=== PATIENT | male | born 1955 | race Caucasian/White ===

== ENCOUNTER 2020-08-01 19:39 | Emergency (ER) | payer OTHER, SELFPAY ==
[2020-08-01 19:44] VITALS: BP 170/86; PULSE 94; RESP 16; TEMP 36.3; O2SAT 100
--- NOTE | 2020-08-01 20:25 | ED.EXTPRO ---
HPI - Extremity Problem General Chief complaint: Extremity Problem,Nontraumatic Stated complaint: LEG PAIN, HISTORY OF DVT Time Seen by Provider: 08/01/20 20:09 Source: patient Mode of arrival: ambulatory Limitations: no limitations History of Present Illness HPI Narrative: Patient is 65 years old white male presents with pain at the medial side of the distal right thigh started 2 to 3 days ago. Patient denies any trauma or similar symptoms. Patient denies any fever, chills, nausea, vomiting, headache, shortness of breath or chest pain. Patient denies exposure to anybody with COVID-19. History of diabetes, hypertension, hyperlipidemia. Patient does not smoke, does not drink does not use drugs. History of deep vein thrombosis 2006. Currently patient does not take any blood thinner. Related Data Home Medications Medication Instructions Recorded Confirmed fluocinonide 0.05 % topical cream 1 applic TOPICAL BID 11/16/19 lancets 30 gauge #25 each 11/16/19 tadalafil 20 mg tablet 20 mg PO DAILY PRN 11/16/19 Allergies Allergy/AdvReac Type Severity Reaction Status Date / Time No Known Allergies Allergy Verified 08/01/20 19:48 Review of Systems Review of Systems: Narrative: CONSTITUTIONAL: Denies fever, chills, or sweats. EYES: Denies visual changes, redness, or discharge. ENT: Denies rhinorrhea, congestion, sore throat, or otalgia. CARDIOVASCULAR: Denies chest pain, palpitations, or edema. RESPIRATORY: Denies cough or dyspnea. GASTROINTESTINAL: Denies abdominal pain, nausea, vomiting, or diarrhea. GENITOURINARY: Denies dysuria or hematuria. SKIN: Denies rash or itching. MUSCULOSKELETAL: Denies back pain, joint pain, or myalgia. NEUROLOGIC: Denies headache, numbness, or weakness. PSYCHIATRIC: Denies anxiety or depression. [facility] Past Medical History Medical History (Updated 08/01/20 @ 21:29 by Rob Lagunas MD) Chronic pain of left ankle DVT (deep venous thrombosis) 2013 Dyslipidemia Eczema ankle Elevated lipids Erectile dysfunction Essential (primary) hypertension Hypertension Pre-diabetes Type 2 diabetes mellitus without complication, without long-term current use of insulin Surgical History Surgical History History of foot surgery x3 Family History Family History Other Diabetes mellitus Social History Social History Smoking status: Never smoker Second hand tobacco smoke exposure: No Alcohol intake: current Substance use: never Substance use type: does not use Gender identity (if verbalized by the patient): Male Exam Narrative: Exam Narrative: General appearance: Well-developed, well-nourished Skin: Normal color, Head: Normocephalic, nontraumatic Eyes: Clear conjunctiva ENT: Oropharynx normal, ears normal, nose normal Neck: Supple, nontender Chest and respiratory: Airway patent, no respiratory distress, no accessory muscle use Heart: Regular rate/rhythm Abdomen: Soft, nontender, no organomegaly, quiet bowel sounds Vascular: Normal peripheral pulses, normal capillary refill. Musculoskeletal: Normal range of motion, nontender back. Right thigh showed a kuldeep like feeling subcutaneous, 25 cm x 1 cm, distal medial thigh, tender, red, Neurologic: Alert and oriented ?3, TURN SEWER is normal as tested, no gross motor deficit Course Course Emergency Course: Stable Vital Signs Vital signs: Vital Signs Temperature 36.3 C L 08/01/20 19:44 Pulse Rate 94 08/01/20 19:44 Respiratory Rate 16 08/01/20 19:44 Blood Pressure 170/86 H 08/01/20 19:44 Pulse Ox
[2020-08-01 20:38] LABS: Basophils Percent Auto 0.5 % (0.2-1.2); Eosinophils Absolute Auto 0.1 K/mm3 (0-0.3); Eosinophils Percent Auto 2.2 % (0-4.4); Hematocrit 44.8 % (42.0-52.0); Hemoglobin 15.4 g/dL (14.0-18.0); Immature Granulocyte Absolute 0.02 K/mm3 (0.00-0.031); Immature Granulocyte Percent A 0.3 % (0-0.5); Lymphocytes Absolute Auto 1.29 K/mm3 (0.9-3.2); Lymphocytes Percent Auto 20.3 % (18.3-44.2); Mean Corpuscular HGB Conc 34.4 g/dl (32-36); Mean Corpuscular Volume 92.9 fl (80-100); Mean Platelet Volume 9.6 fl (7.4-10.4); Monocytes Absolute Auto 0.7 K/mm3 (0.1-0.6); Monocytes Percent Auto 10.8 % (2.6-8.5); Neutrophils Absolute Auto 4.2 K/mm3 (1.3-6.7); Neutrophils Percent Auto 65.9 % (45.5-73.1); Platelet Count Result 175 k/mm3 (150-375); Red Blood Count 4.82 M/mm3 (4.6-6.20); Red Cell Distribution Width 12.7 % (11.5-14.5); White Blood Count 6.4 K/mm3 (4.5-10.0)
[2020-08-01] MEDS: ASPIRIN 81 MG CHEWABLE TABLET 324 MG PO (20:48)
[2020-08-01 20:49] LABS: INR 1.1; Prothrombin Time 13.4 Seconds (11.1-14.7)
[2020-08-01 20:50] VITALS: BP 152/101; PULSE 79; RESP 12; O2SAT 97
[2020-08-01 20:52] LABS: D Dimer 0.27 ug/mL (<0.48)
[2020-08-01] MEDS: APIXABAN 5 MG TABLET 10 MG PO (20:55)
[2020-08-01 22:00] VITALS: BP 146/91; PULSE 78; RESP 15; O2SAT 96
== END 2020-08-01 22:00 | disposition home or self-care (01) ==
PROVIDERS: Emergency Provider Emergency Medicine; PCP Family Medicine
DX: I80.01 Phlebitis and thrombophlebitis of superficial vessels of right lower extremity (principal); I10 Essential (primary) hypertension; E11.9 Type 2 diabetes mellitus without complications; E78.5 Hyperlipidemia, unspecified
CPT/HCPCS: 36415; 85025; 85380; 85610; 85730; 99283; A9270

== ENCOUNTER 2020-08-02 07:09 | Outpatient (CLI) | payer OTHER, SELFPAY ==
--- NOTE | ~2020-08-02 | US_ITS ---
EXAMINATION: US venous doppler LE RT DATE: 08/02/2020 07:43 INDICATION: Right lower limb pain and swelling TECHNIQUE: Grayscale ultrasound images without and with compression and Doppler ultrasound images of the right lower extremity veins were obtained. COMPARISON: None. FINDINGS: The visualized portions of right common femoral vein, profunda (deep) femoral vein, femoral vein, pop liteal vein, peroneal trunk, posterior tibial veins, peroneal veins, gastrocnemius vein and greater s aphenous vein outflow are patent. There is noncompressible thrombus in the right greater saphenous ve in syndrome from the mid thigh through the knee. The more distal right greater saphenous vein at the proximal calf is patent and compressible. Incidental simple appearing 3.9 x 1.1 x 0.4 cm anechoic loc ulated subcutaneous fluid collection at the proximal right calf with no internal flow or surrounding hyperemia on color Doppler suggesting a small hematoma/seroma. IMPRESSION: 1. Superficial venous thrombosis in the right greater saphenous vein at the mid thigh through the kne e. No deep venous thrombosis in the right lower limb. 2. Likely incidental 3.9 x 1.1 x 0.4 cm simple anechoic subcutaneous fluid collection at the proximal right calf most consistent with hematoma/seroma. Reviewed, dictated and finalized at location A. IMPRESSION: 1. Superficial venous thrombosis in the right greater saphenous vein at the mid thigh through the knee. No deep venous thrombosis in the right lower limb. 2. Likely incidental 3.9 x 1.1 x 0.4 cm simple anechoic subcutaneous fluid ford ection at the proximal right calf most consistent with hematoma/seroma.
== END 2020-08-02 07:10 | disposition home or self-care (01) ==
PROVIDERS: PCP Family Medicine; Visit Provider Family Medicine
DX: M79.89 Other specified soft tissue disorders (principal); I82.811 Embolism and thrombosis of superficial veins of right lower extremity
CPT/HCPCS: 93971

== ENCOUNTER → 2020-11-26 13:28 | Outpatient (CLI) | payer OTHER, SELFPAY ==
--- NOTE | ~2020-11-26 | MR_ITS ---
EXAMINATION: MR knee RT wo con DATE: 11/26/2020 14:15 INDICATION: Right knee pain TECHNIQUE: Magnetic resonance imaging (MRI) of the right knee was performed without intravenous contr ast. Sequences included coronal PD-weighted FSE, coronal PD-weighted FS FSE, sagittal T2-weighted FS E, sagittal PD-weighted FS FSE and axial PD weighted fat saturated FSE. COMPARISON: None. FINDINGS: Medial compartment: There is medial extrusion of the medial meniscal body. Complex tear of the medial meniscal body and p osterior horn. Partial-thickness cartilage loss without degenerative subchondral changes along the me dial tibial plateau and at the anterior weightbearing medial femoral condyle. Focal chondral fissurin g with tiny focus of subarticular increased marrow signal at the posterior weightbearing medial femor al condyle. Lateral compartment: Lateral meniscus is normal. Chondral fissuring without degenerative subchondral changes at the centra l aspect of the lateral tibial plateau and juxtaposed anterior weightbearing lateral femoral condyle. Additional chondral fissuring with tiny central subchondral osteophyte at the posterior weightbearin g lateral femoral condyle. Patellofemoral compartment: Mild partial thickness cartilage loss and partial-thickness chondral fissuring at the inferior aspect of the patellar apical ridge and lateral facet, the former with couple tiny foci of subarticular moses ma. Shallow chondral ulceration at the trochlear groove. Deeper ulceration at the superomedial margin of the medial trochlea. Additional deep ulceration along the inferior margin of the lateral trochlea with subtle cortical irregularity and minimal subarticular edema. Ligaments and tendons: The posterior cruciate ligament is normal. The anteromedial bundle of the anterior cruciate ligament is normal. Prominent thickening and increased signal of the posterolateral bundle without a discrete discontinuity which could be related to either partial tear or mucoid degeneration. The medial collat eral ligament and fibular collateral ligament complex are normal. Mild tendinopathy at the patellar i nsertion of the distal quadriceps and proximal patellar tendons. The visualized medial and lateral de leon mstring tendons as well as the iliotibial band are normal. Fluid: Small right knee joint effusion. No loose osteochondral bodies identified. Small Hatch's cyst. Osseous/other: Bone alignment is normal. No fracture or pathologic marrow replacing process. IMPRESSION: 1. Complex medial meniscal tear. 2. Mild tricompartmental osteoarthritis with moderate grade chondral malacia medial compartment and m oderate and high-grade chondral malacia in the lateral and patellofemoral compartments. 3. Mucoid degeneration versus partial tear of the posterolateral bundle of the anterior cruciate liga ment. The anteromedial bundle appears to remain intact. 4. Small right knee joint effusion and small Hatch's cyst. Reviewed, dictated and finalized at location A. TIVE SPOTTER IMPRESSION: 1. Complex medial meniscal tear. 2. Mild tricompartmental osteoarthritis with moderate grade chondral malacia me dial compartment and moderate and high-grade chondral malacia in the lateral an d patellofemoral compartments. 3. Mucoid degeneration versus partial tear of the posterolateral bundle of the anterior cruciate ligament. The anteromedial bundle appears to remain intact. 4. Small right knee joint effusion and small Hatch's cyst.
== END ==
PROVIDERS: PCP Family Medicine; Visit Provider Orthopaedic Surgery
DX: M25.561 Pain in right knee (principal); S83.231A Complex tear of medial meniscus, current injury, right knee, initial encounter; M17.11 Unilateral primary osteoarthritis, right knee; M94.261 Chondromalacia, right knee; M25.461 Effusion, right knee; M71.21 Synovial cyst of popliteal space [Baker], right knee
CPT/HCPCS: 73721

== ENCOUNTER 2020-12-05 12:49 | Outpatient (CLI) | payer OTHER, SELFPAY ==
--- NOTE | 2020-12-05 12:53 | ECG_ITS ---
Measurements Intervals Woody Rate: 78 P: 58 SC: 161 QRS: -15 QRSD: 101 T: 30 QT: 370 QTc: 423 Interpretive Statements SINUS RHYTHM BASELINE ARTIFACT- II, AVR NORMAL ECG Electronically Signed On 12-05-2020 13:20:35 [employer] by Kenroy Boyer D.O.
[2020-12-05 13:54] LABS: Anion Gap 6 mmol/L (8-16); Blood Urea Nitrogen 18 mg/dL (9-20); Calcium 9.6 mg/dL (8.4-10.2); Carbon Dioxide 30 mmol/L (22-30); Chloride 104 mmol/L (98-107); Estimated Glomerular Filt Rate > 60; Glucose 76 mg/dL (75-110); Sodium 140 mmol/L (137-145)
== END 2020-12-05 12:50 | disposition home or self-care (01) ==
PROVIDERS: Anesthesiology; PCP Family Medicine; Visit Provider Orthopaedic Surgery
DX: E11.9 Type 2 diabetes mellitus without complications (principal); E78.5 Hyperlipidemia, unspecified; I10 Essential (primary) hypertension; Z01.818 Encounter for other preprocedural examination
CPT/HCPCS: 36415; 80048; 93005

== ENCOUNTER → 2020-12-08 01:28 | Outpatient (CLI) | payer OTHER, SELFPAY ==
[2020-12-08 19:42] LABS: SARS-CoV-2 RNA PCR Negative
== END ==
PROVIDERS: PCP Family Medicine; Visit Provider Orthopaedic Surgery
DX: Z01.812 Encounter for preprocedural laboratory examination (principal); Z20.822 Contact with and (suspected) exposure to COVID-19
CPT/HCPCS: C9803; U0003; U0005

== ENCOUNTER 2020-12-11 01:55 | Day surgery (SDC) | payer OTHER, SELFPAY ==
[2020-12-04 10:23] VITALS: BMI 28.9
[2020-12-11] VITALS (9 sets, daily range): BP systolic 118–153; BP diastolic 70–91; PULSE 84–95; RESP 13–18; TEMP 36.6–37.1; O2SAT 92–95
--- NOTE | 2020-12-11 07:54 | WPDANESEPPF ---
Anes - Initial Pre Proc Eval Procedure: Operation Date: 12/11/20 13:30 Proposed Procedures p Right Knee Arthroscopy, Proceed As Indicated - Sonny Ibrahim MD Date/Time: 12/11/20 07:54 Surgeon: Sonny Ibrahim MD Pre Op Diagnosis: Right Knee Complex Medial Meniscus Tear Patient Data Age: 65 Gender: M Height: 1.88 m Weight: 102.3 kg Allergies Allergy/AdvReac Type Severity Reaction Status Date / Time No Known Allergies Allergy Verified 12/11/20 11:50 Home Medications Medication Instructions Recorded Confirmed Type fluocinonide 0.05 % topical cream 1 applic TOPICAL BID 11/16/19 12/11/20 History lancets 30 gauge #25 each 11/16/19 11/29/20 History blood sugar diagnostic #100 each 02/23/20 11/29/20 Rx fenofibrate 160 mg tablet 160 mg PO DAILY #90 tablet 02/23/20 12/11/20 Rx metformin 500 mg tablet,extended 2,000 mg PO QPM #360 tablet 02/23/20 12/11/20 Rx release 24 hr acetaminophen 650 mg PO BID PRN 11/29/20 12/11/20 History chlorhexidine gluconate 4 % 1 applic TOPICAL ONCE #237 ml 11/29/20 Rx topical liquid cholecalciferol (vitamin D3) 1,000 mg PO DAILY 11/29/20 12/11/20 History multivitamin 1 tablet PO DAILY 11/29/20 12/11/20 History naproxen sodium 220 mg PO BID 11/29/20 12/11/20 History omega-3 fatty acids 1,000 mg 1,000 mg PO DAILY 11/29/20 12/11/20 History capsule saw palmetto 1 tab-cap PO DAILY 11/29/20 12/11/20 History vitamin B complex 1 tablet PO DAILY 11/29/20 12/11/20 History atorvastatin 10 mg PO HS 12/04/20 12/11/20 History glipizide 10 mg PO DAILY 12/04/20 12/11/20 History lisinopril 40 mg PO DAILY 12/04/20 12/11/20 History tramadol 50 mg PO BID PRN 12/04/20 12/11/20 History Patient hx anesthesia problems: none Family hx anesthesia problems: none PMFSH Past Medical History Medical History Chronic pain of left ankle DVT (deep venous thrombosis) 2014 Dyslipidemia Eczema ankle Elevated lipids Erectile dysfunction Essential (primary) hypertension High cholesterol Pre-diabetes Type 2 diabetes mellitus without complication, without long-term current use of insulin Surgical History Surgical History History of foot surgery (~2013) Left x3 2014 Family History Family History Other Arthritis Diabetes mellitus High cholesterol Hypertension Social History Social History Smoking packs per day: 2.5 Smoking cigarettes per day: 50.0 Years smoked: 25 Smoking pack-years: 62.50 Smoking status: Never smoker Tobacco type: cigarettes Second hand tobacco smoke exposure: No Smoking end date: 12/04/02 Alcohol intake: current Substance use: never Substance use type: does not use Living arrangements: with family Gender identity (if verbalized by the patient): Male Spiritual care concerns: No Anes - Eval Final PreProcedure Day of Procedure 12/11/20 07:54 Patient weight: overweight Heart: regular rate and rhythm Lungs: clear to auscultation and normal air movement Airway: Mallampati scale class II Neurological: alert and oriented Last oral intake: >/= 8 hours ASA classification: III Emergent: no Anesthetic plan: proceed Anesthesia type and monitoring: general LMA Informed Consent: The patient's anesthetic plan and its attendant risks and benefits were discussed with the patient/family/POA. Questions were solicited and answers provided to the satisfaction of the patient/family/POA.
--- NOTE | 2020-12-11 11:42 | WPDHPUPDATE1 ---
History and Physical Update Update Date/Time: 12/11/20 11:42 History and Physical has been reviewed, including an updated exam of the patient. There are NO changes in the patient's condition. Risks, benefits, and alternatives have been discussed and questions answered. Patient agrees to proceed with procedure.
[2020-12-11] MEDS: ACETAMINOPHEN 500 MG TABLET 1000 MG PO (11:56)
[2020-12-11] MEDS: CELECOXIB 200 MG CAPSULE PO (11:56)
[2020-12-11] MEDS: LACTATED RINGERS 1,000 ML 30 ML IV CONT ×2 (12:14→14:35)
[2020-12-11] MEDS: ceFAZolin 2 GM/D5W 50 ML 2 GM/50 ML BAG IVPB (13:10)
[2020-12-11] MEDS: BUPIVACAINE HCL 0.5% PF 30 ML VIAL INFILTRATE (14:19)
--- NOTE | 2020-12-11 14:33 | P.OP_ITS ---
Procedure Note - Detailed Date of procedure: 12/11/20 Pre-op diagnosis: Right Knee Complex Medial Meniscus Tear Post-op diagnosis: other (medial meniscus tear, lateral meniscus tear, chondromalacia, synovitis) Procedure performed: RIGHT KNEE SCOPE WITH PARTIAL MEDIAL MENISCECTOMY, PARTIAL LATERAL MENISCECTOMY AND MAJOR SYNOVECTOMY Description of procedure: PATIENT WAS TAKEN TO THE OR. THE RIGHT LEG WAS PREPPED AND DRAPED STERILE. TROCARS WERE PLACED IN THE USUAL FASHION. CAMERA WAS INTRODUCED. THERE WAS CHONDROMALACIA TO THE PATELLA FEMORAL JOINT. THERE WAS A LOT OF SYNOVITIS IN ALL COMPARTMENTS. THE MEDIAL COMPARTMENT SHOWED CHONDRO MALACIA TO THE MED FEMORAL CONDYLE. A SHAVER WAS USED TO PREFORM A CHONDROPLASTY. THERE WAS A COMPLEX MEDIAL MENISCUS TEAR. THE TEAR WAS RESECTED WITH A BITER AND A SHAVER DOWN TO A SMOOTH BASE. ABOUT 25% OF THE MENISCUS WAS REMOVED. THE ACL WAS INTACT. THE LATERAL MENISCUS WAS TORN AT THE MOST LATERAL REGION OF THE HORN. THE TEAR WAS RESECTED. THE LAT COMPARTMENT HAD GRADE 2 CHONDROMALACIA AT THE LATERAL FEMORAL CONDYLE. CHONDROPLASTY WAS PREFORMED. A SYNOVECTOMY WAS PREFORMED WELL. THE PATELLO FEMORAL JOINT UNDERWENT CHONDROPLASTY. THERE WAS GRADE 3 CHONDROMALACIA IN MOST OF THE TROCHLEA AND PART OF THE PATELLA. SYNOVECTOMY WAS PREFORMED IN THE SUPERIOR MEDIAL COMPARTMENT. THE WOUNDS WERE APPROXIMATED WITH 4.0 NYLON. STERILE DRESSING WAS APPLIED. PATIENT WAS EXTUBATED. Anesthesia: GLMA Surgeon: Sonny Ibrahim MD Estimated blood loss (mL): 5 Complications: No immediate complications Condition: stable Disposition: PACU
[2020-12-11 15:14] LABS: Glucose Point of Care 153 (65-105)
[2020-12-11] MEDS: fentaNYL CITRATE INJ (*CRX) 100 MCG/2 ML VIAL 25 MCG IV PUSH ×4 (15:15→15:24)
[2020-12-11] MEDS: oxyCODONE HCL (*CRX) 5 MG TAB IR PO (16:06)
== END 2020-12-11 16:40 | disposition home or self-care (01) ==
PROVIDERS: PCP Family Medicine; Visit Provider Orthopaedic Surgery
PROC: (CPT 29870; principal; 2020-12-11 13:30)
DX: M23.331 Other meniscus derangements, other medial meniscus, right knee (principal); M23.361 Other meniscus derangements, other lateral meniscus, right knee; M94.261 Chondromalacia, right knee; M65.861 Other synovitis and tenosynovitis, right lower leg; I10 Essential (primary) hypertension; E78.00 Pure hypercholesterolemia, unspecified; E11.9 Type 2 diabetes mellitus without complications; E78.5 Hyperlipidemia, unspecified; Z86.718 Personal history of other venous thrombosis and embolism; Z87.891 Personal history of nicotine dependence; Z79.84 Long term (current) use of oral hypoglycemic drugs
CPT/HCPCS: 29880; 36415; 80048; 82948; 93005; A9270; C9803; J0690; J1100; J2250; J2370; J2405; J2704; J3010; J7120; U0003; U0005

== ENCOUNTER → 2021-04-01 00:38 | Outpatient (CLI) | payer OTHER, SELFPAY | PROVIDERS: PCP Family Medicine; Visit Provider Internal Medicine Gastroenterology | DX: Z01.812 Encounter for preprocedural laboratory examination (principal); Z20.822 Contact with and (suspected) exposure to COVID-19 | CPT/HCPCS: 99199; C9803; U0003; U0005 ==

== ENCOUNTER 2021-04-04 00:39 | Day surgery (SDC) | payer OTHER, SELFPAY ==
[2021-03-19 14:49] VITALS: BMI 28.8
[2021-04-04 06:47] VITALS: BMI 28.2
[2021-04-04] MEDS: LACTATED RINGERS 1,000 ML 150 ML IV CONT (07:01)
[2021-04-04 07:02] VITALS: BP 171/91; PULSE 80; RESP 16; TEMP 36.7; O2SAT 97
[2021-04-04 07:02] LABS: Glucose Point of Care 142 mg/dl (65-105)
--- NOTE | 2021-04-04 07:34 | WPDANESEPPF ---
Anes - Initial Pre Proc Eval Procedure: Operation Date: 04/04/21 08:00 Proposed Procedures p Screening Colonoscopy - Myke Ibarra DO Date/Time: 04/04/21 07:34 Surgeon: Myke Ibarra DO Pre Op Diagnosis: neoplasm screening Patient Data Age: 66 Gender: M Height: 1.88 m Weight: 99.8 kg Last Vital Signs Temp 36.7 C 04/04/21 07:02 Pulse 80 04/04/21 07:02 Resp 16 04/04/21 07:02 BP 171/91 H 04/04/21 07:02 Pulse Ox 97 04/04/21 07:02 Allergies Allergy/AdvReac Type Severity Reaction Status Date / Time No Known Allergies Allergy Verified 04/04/21 06:45 Home Medications Medication Instructions Recorded Confirmed Type fluocinonide 0.05 % topical cream 1 applic TOPICAL BID 11/16/19 04/04/21 History lancets 30 gauge #25 each 11/16/19 04/04/21 History blood sugar diagnostic #100 each 02/23/20 04/04/21 Rx acetaminophen [Tylenol] 650 mg PO BID PRN 11/29/20 04/04/21 History cholecalciferol (vitamin D3) 1,000 mg PO DAILY 11/29/20 04/04/21 History multivitamin 1 tablet PO DAILY 11/29/20 04/04/21 History naproxen sodium [Aleve] 220 mg PO BID 11/29/20 04/04/21 History omega-3 fatty acids 1,000 mg 1,000 mg PO DAILY 11/29/20 04/04/21 History capsule saw palmetto 1 tab-cap PO DAILY 11/29/20 04/04/21 History vitamin B complex 1 tablet PO DAILY 11/29/20 04/04/21 History atorvastatin 10 mg PO HS 12/04/20 04/04/21 History glipizide 10 mg PO DAILY 12/04/20 04/04/21 History lisinopril 40 mg PO DAILY 12/04/20 04/04/21 History metformin 500 mg tablet,extended 2,000 mg PO QPM #360 tablet 01/28/21 04/04/21 Rx release 24 hr tramadol 50 mg tablet 50 mg PO BID PRN #90 tablet 02/06/21 04/04/21 Rx fenofibrate 160 mg tablet 160 mg PO DAILY #90 tablet 03/18/21 04/04/21 Rx Laboratory Tests 04/04/21 06:53 POC Capillary Glucose 142 mg/dl H mg/dl (65-105) Patient hx anesthesia problems: none Family hx anesthesia problems: none PMFSH Past Medical History Medical History Chronic pain of left ankle DVT (deep venous thrombosis) 2014 - LLE Dyslipidemia Eczema ankle Elevated lipids Erectile dysfunction Essential (primary) hypertension High cholesterol History of colon polyps Medial meniscus, posterior horn derangement Pre-diabetes Type 2 diabetes mellitus without complication, without long-term current use of insulin Surgical History Surgical History H/O right knee surgery (~12/2020) History of foot surgery (~2013) Left x3 2014 History of medial meniscus repair of right knee 12/2020 Family History Family History Other Arthritis Diabetes mellitus High cholesterol Hypertension Social History Social History Smoking packs per day: 3 Smoking cigarettes per day: 60.0 Years smoked: 38 Smoking pack-years: 114.00 Smoking status: Former smoker Tobacco type: cigarettes Second hand tobacco smoke exposure: No Smoking end date: 10/12/02 Alcohol intake: current Alcohol use details: rarely Substance use: never Substance use type: does not use Living arrangements: with family Gender identity (if verbalized by the patient): Male Spiritual care concerns: No Anes - Eval Final PreProcedure Day of Procedure 04/04/21 07:34 Patient weight: overweight Heart: regular rate and rhythm Lungs: clear to auscultation Airway: Mallampati scale class II Neurological: alert and oriented Last oral intake: >/= 8 hours ASA classification: III Emergent: no Anesthetic plan: proceed Anesthesia type and monitoring: general GIVS and standard monitoring Informed Consent: The patient's anesthetic plan and its attendant risks and benefits were discussed with the patient/family/POA. Questions were solicited and answers provided to the satisfaction of the patient/fam
--- NOTE | 2021-04-04 07:56 | WPDGICN ---
GI Consult Note Consult date/time: 04/04/21 07:56 HPI: Reason for visit colonoscopy. This very pleasant gentleman seen in consultation request the primary physician. Impression: Screening and surveillance colonoscopy. The patient has a history adenomatous colon polyps. DVT. EGD. HTN. HLD. Eczema. DM. Recommendation: Colonoscopy. History: This very pleasant gentleman is here for screening and surveillance colonoscopy. He has negative GI review of systems. He has a history adenomatous colon polyps. Physical examination: General: very pleasant patient in no acute distress. HEENT: Head was normocephalic sclerae is clear mouth without masses neck was supple. Heart: Rate rhythm regular without S3 or S4. Lungs: CTA. Abdomen: Soft with no guarding or rigidity. Bowel sounds were active. Neurologic: Cranial nerves 2 through 12 intact. No focal defects. No clonus. Musculoskeletal system: Revealed no joint tenderness or swelling no muscle atrophy. Extremities: Reveal no significant edema. Skin: Warm and dry with normal turgor. Mental status: intact. Patient is alert and oriented. Review of Systems Review of Systems: All systems reviewed & are unremarkable except as noted in HPI and below PMFSH Past Medical History Medical History Chronic pain of left ankle DVT (deep venous thrombosis) 2014 - LLE Dyslipidemia Eczema ankle Elevated lipids Erectile dysfunction Essential (primary) hypertension High cholesterol History of colon polyps Medial meniscus, posterior horn derangement Pre-diabetes Type 2 diabetes mellitus without complication, without long-term current use of insulin Surgical History Surgical History H/O right knee surgery (~12/2020) History of foot surgery (~2013) Left x3 2014 History of medial meniscus repair of right knee 12/2020 Family History Family History Other Arthritis Diabetes mellitus High cholesterol Hypertension Social History Social History Smoking packs per day: 3 Smoking cigarettes per day: 60.0 Years smoked: 38 Smoking pack-years: 114.00 Smoking status: Former smoker Tobacco type: cigarettes Second hand tobacco smoke exposure: No Smoking end date: 10/12/02 Alcohol intake: current Alcohol use details: rarely Substance use: never Substance use type: does not use Living arrangements: with family Gender identity (if verbalized by the patient): Male Spiritual care concerns: No Meds Home Medications and Allergies Home Medications Medication Instructions Recorded Confirmed Type fluocinonide 0.05 % topical cream 1 applic TOPICAL BID 11/16/19 04/04/21 History lancets 30 gauge #25 each 11/16/19 04/04/21 History blood sugar diagnostic #100 each 02/23/20 04/04/21 Rx acetaminophen [Tylenol] 650 mg PO BID PRN 11/29/20 04/04/21 History cholecalciferol (vitamin D3) 1,000 mg PO DAILY 11/29/20 04/04/21 History multivitamin 1 tablet PO DAILY 11/29/20 04/04/21 History naproxen sodium [Aleve] 220 mg PO BID 11/29/20 04/04/21 History omega-3 fatty acids 1,000 mg 1,000 mg PO DAILY 11/29/20 04/04/21 History capsule saw palmetto 1 tab-cap PO DAILY 11/29/20 04/04/21 History vitamin B complex 1 tablet PO DAILY 11/29/20 04/04/21 History atorvastatin 10 mg PO HS 12/04/20 04/04/21 History glipizide 10 mg PO DAILY 12/04/20 04/04/21 History lisinopril 40 mg PO DAILY 12/04/20 04/04/21 History metformin 500 mg tablet,extended 2,000 mg PO QPM #360 tablet 01/28/21 04/04/21 Rx release 24 hr tramadol 50 mg tablet 50 mg PO BID PRN #90 tablet 02/06/21 04/04/21 Rx fenofibrate 160 mg tablet 160 mg PO DAILY #90 tablet 03/18/21 04/04/21 Rx Allergies Allergy/AdvReac Type Severity Reaction Status Date / Time
[2021-04-04 08:32] VITALS: BP 122/84; PULSE 70; RESP 17; O2SAT 95
[2021-04-04 08:42] VITALS: BP 129/91; PULSE 69; RESP 16; O2SAT 97
[2021-04-04 08:52] VITALS: BP 142/97; PULSE 68; RESP 15; O2SAT 96
== END 2021-04-04 08:52 | disposition home or self-care (01) ==
PROVIDERS: PCP Family Medicine; Visit Provider Internal Medicine Gastroenterology
PROC: 0DJD8ZZ Inspection of Lower Intestinal Tract, Via Natural or Artificial Opening Endoscopic (ICD-10-PCS; CPT 45378; principal; 2021-04-04 08:00)
DX: Z12.11 Encounter for screening for malignant neoplasm of colon (principal); K57.30 Diverticulosis of large intestine without perforation or abscess without bleeding; K64.8 Other hemorrhoids; Z86.010 Personal history of colon polyps; I10 Essential (primary) hypertension; E78.5 Hyperlipidemia, unspecified; E11.9 Type 2 diabetes mellitus without complications; L30.9 Dermatitis, unspecified; Z86.718 Personal history of other venous thrombosis and embolism; Z87.891 Personal history of nicotine dependence; Z79.84 Long term (current) use of oral hypoglycemic drugs
CPT/HCPCS: 45378; 82948; J7120

== ENCOUNTER 2022-08-13 14:28 | Outpatient (CLI) | payer BC, SELFPAY ==
[2022-08-13 19:38] LABS: Alanine Aminotransferase 30 U/L (6-50); Albumin Level 4.8 g/dL (3.5-5.1); Alkaline Phosphatase 34 U/L (38-126); Anion Gap 14 mmol/L (8-16); Aspartate Amino Transferase 27 U/L (17-59); Bilirubin,Total 0.7 mg/dL (0.2-1.3); Blood Urea Nitrogen 17 mg/dL (9-20); Calcium 9.4 mg/dL (8.4-10.2); Carbon Dioxide 25 mmol/L (22-30); Chloride 98 mmol/L (98-107); Estimated Glomerular Filt Rate > 60; Glucose 105 mg/dL (65-110); Potassium 3.6 mmol/L (3.4-5.0); Sodium 137 mmol/L (137-145)
[2022-08-13 19:59] LABS: Hemoglobin A1C 6.9 % (<5.7)
== END 2022-08-13 14:29 | disposition home or self-care (01) ==
LOC: ANHGOSHLAB 14:32
PROVIDERS: PCP Family Medicine; Visit Provider Family Medicine
DX: I10 Essential (primary) hypertension (principal); E11.9 Type 2 diabetes mellitus without complications; Z79.899 Other long term (current) drug therapy
CPT/HCPCS: 36415; 80053; 83036

== ENCOUNTER 2022-12-13 12:36 | Outpatient (CLI) | payer BC, SELFPAY ==
--- NOTE | ~2022-12-13 | MR_ITS ---
EXAMINATION: MR shoulder RT wo con DATE: 12/13/2022 13:27 INDICATION: Right shoulder pain. Right arm numbness and tingling. TECHNIQUE: Magnetic resonance imaging (MRI) of the right shoulder was performed without intravenous c ontrast. Sequences included axial PD-weighted FS FSE, coronal oblique PD-weighted FS FSE and T2-weigh rizwan FS FSE, and sagittal oblique T2-weighted FS FSE and T1-weighted FSE. COMPARISON: None. FINDINGS: Coracoacromial arch: The acromion undersurface is curved in morphology (type II). There is severe acromioclavicular joint osteoarthritis including inferiorly directed osteophytes. There is mild subacromial/subdeltoid bursit is. Rotator cuff: There is severe supraspinatus and infraspinatus tendinopathy. Teres minor tendon is normal. There is an articular sided partial tear of subscapularis tendon. There is volume loss and moderate fatty atro phy of the middle and superior thirds of subscapularis muscle belly. Biceps tendon and glenoid labrum: Biceps tendon is medially dislocated from the bicipital groove into the anterior glenohumeral joint. There is severe biceps tendinopathy with longitudinal split tear. There is degenerative tearing of th e glenoid labrum. Fluid: There is a small glenohumeral joint effusion. Bones/cartilage: There is cartilage surface irregularity of glenoid and humeral head. IMPRESSION: 1. Severe rotator cuff tendinopathy with articular sided partial-thickness tear of subscapularis tend on. 2. Partial tear of biceps tendon, which is medially dislocated from the bicipital groove into the ant erior glenohumeral joint. 3. Mild glenohumeral joint chondrosis. 4. Small glenohumeral joint effusion. 5. Severe acromioclavicular joint osteoarthritis. 6. Mild subacromial/subdeltoid bursitis. Reviewed, dictated and finalized at location A. GRAPHER IMPRESSION: 1. Severe rotator cuff tendinopathy with articular sided partial-thickness tear of subscapularis tendon. 2. Partial tear of biceps tendon, which is medially dislocated from the bicipit al groove into the anterior glenohumeral joint. 3. Mild glenohumeral joint chondrosis. 4. Small glenohumeral joint effusion. 5. Severe acromioclavicular joint osteoarthritis. 6. Mild subacromial/subdeltoid bursitis.
== END 2022-12-13 12:37 | disposition home or self-care (01) ==
PROVIDERS: PCP Family Medicine; Visit Provider Nurse Practitioner
DX: R20.0 Anesthesia of skin (principal); R20.2 Paresthesia of skin; M19.011 Primary osteoarthritis, right shoulder; M25.411 Effusion, right shoulder; M75.51 Bursitis of right shoulder; S46.211A Strain of muscle, fascia and tendon of other parts of biceps, right arm, initial encounter; X58.XXXA Exposure to other specified factors, initial encounter
CPT/HCPCS: 73221

== ENCOUNTER 2023-01-28 06:34 | Outpatient (CLI) | payer BC, SELFPAY ==
--- NOTE | ~2023-01-28 | MR_ITS ---
MRI of the cervical spine Clinical History: Cervical spine arthritis Technique: Axial T2-weighted and gradient images, and sagittal T1-weighted, T2-weighted, and STIR ebony ges were acquired. Findings: No fracture identified. Minimal grade 1 anterolisthesis of C4 over C5 noted. No suspicious bone marrow signal abnormality seen. At C2-C3, there is no disc bulge or herniation. No spinal canal stenosis, cord compression, or neural foraminal narrowing. At C3-C4, there is minimal degenerative disc narrowing. No karen spinal canal stenosis or cord compre ssion. There is left neural foraminal narrowing. Right neural foramen preserved. At C4-C5, there is mild disc osteophyte complex. No karen spinal canal stenosis or definite cord comp ression. There is bilateral neural foraminal narrowing, right worse than left. At C5-C6, there is mild disc osteophyte complex. No definite canal stenosis or cord compression. Ther e is mild bilateral neural foraminal narrowing. At C6-C7, there is degenerative disc narrowing with mild disc bulge. No definite canal stenosis or co rd compression. There is bilateral neural foraminal narrowing. Paravertebral soft tissues are unremarkable. No abnormal signal seen in the spinal cord itself. Impression: [id number] degenerative spondylosis, as above. There is multilevel neural foraminal narrowing. No karen cord compression evident. Reviewed, dictated and finalized at [facility]. Impression: [id number] degenerative spondylosis, as above. There is multilevel neural foraminal narrowing. No karen cord compression evident.
== END 2023-01-28 06:35 | disposition home or self-care (01) ==
PROVIDERS: PCP Family Medicine; Visit Provider Orthopaedic Surgery
DX: M47.812 Spondylosis without myelopathy or radiculopathy, cervical region (principal)
CPT/HCPCS: 72141

== ENCOUNTER 2023-02-11 14:35 | Outpatient (CLI) | payer BC, SELFPAY ==
[2023-02-11 18:44] LABS: Basophils Absolute Auto 0.1 K/mm3 (0.0-0.1); Basophils Percent Auto 1.1 % (0.2-1.2); Eosinophils Absolute Auto 0.4 K/mm3 (0-0.3); Eosinophils Percent Auto 5.9 % (0-4.4); Hematocrit 46.6 % (42.0-52.0); Hemoglobin 15.9 g/dL (14.0-18.0); Immature Granulocyte Absolute 0.03 K/mm3 (0.00-0.031); Immature Granulocyte Percent A 0.4 % (0-0.5); Lymphocytes Absolute Auto 0.87 K/mm3 (0.9-3.2); Lymphocytes Percent Auto 12.2 % (18.3-44.2); Mean Corpuscular HGB Conc 34.1 g/dl (32-36); Mean Corpuscular Hemoglobin 31.6 pg (26-34); Mean Corpuscular Volume 92.6 fl (80-100); Monocytes Absolute Auto 0.5 K/mm3 (0.1-0.6); Monocytes Percent Auto 7.4 % (2.6-8.5); Neutrophils Absolute Auto 5.2 K/mm3 (1.3-6.7); Platelet Count Result 203 k/mm3 (150-375); Red Blood Count 5.03 M/mm3 (4.6-6.20); Red Cell Distribution Width 13.5 % (11.5-14.5); White Blood Count 7.1 K/mm3 (4.5-10.0)
[2023-02-11 20:02] LABS: Alanine Aminotransferase 27 U/L (6-50); Albumin Level 4.9 g/dL (3.5-5.1); Alkaline Phosphatase 33 U/L (38-126); Anion Gap 7 mmol/L (8-16); Aspartate Amino Transferase 34 U/L (17-59); Blood Urea Nitrogen 17 mg/dL (9-20); Calcium 9.6 mg/dL (8.4-10.2); Carbon Dioxide 33 mmol/L (22-30); Chloride 100 mmol/L (98-107); Cholesterol 129 mg/dL (0-200); Estimated Glomerular Filt Rate > 60; Glucose 89 mg/dL (65-110); HDL Direct 44 mg/dL; Sodium 140 mmol/L (137-145); Triglycerides 171 mg/dL (<150)
[2023-02-11 20:11] LABS: Creatinine Urine 75.9 mg/dL
[2023-02-11 20:14] LABS: LDL Cholesterol Direct 62 mg/dL; MALB Creatinine Ratio 11.1 mg/g (0-30); Microalbumin Urine Random 8.4 mg/L (0-16.7)
[2023-02-11 20:25] LABS: Thyroid Stimulating Hormone Reflex 0.434 uIU/mL (0.465-4.68)
[2023-02-11 20:32] LABS: Prostate Specific Antigen 0.3 ng/mL (< OR = 4.0)
[2023-02-11 21:24] LABS: Hemoglobin A1C 6.3 % (<5.7)
[2023-02-11 21:30] LABS: Free T4 Free Thyroxine Reflex 1.15 ng/dL (0.78-2.19)
[2023-02-11 22:22] LABS: Total Triiodothyronine (T3) 1.18 NG/ML (0.97-1.69)
== END 2023-02-11 14:36 | disposition home or self-care (01) ==
LOC: ANHGOSHLAB 14:37
PROVIDERS: PCP Family Medicine; Visit Provider Family Medicine
DX: Z00.00 Encounter for general adult medical examination without abnormal findings (principal); E11.9 Type 2 diabetes mellitus without complications; I10 Essential (primary) hypertension; E55.9 Vitamin D deficiency, unspecified; E53.8 Deficiency of other specified B group vitamins; M54.12 Radiculopathy, cervical region; E78.5 Hyperlipidemia, unspecified; Z12.5 Encounter for screening for malignant neoplasm of prostate
CPT/HCPCS: 36415; 80053; 80061; 82043; 82306; 82607; 83036; 84153; 84439; 84443; 84480; 85025; G0103

== ENCOUNTER 2023-04-22 00:30 | Day surgery (SDC) | payer BC, SELFPAY ==
[2023-04-08 14:49] VITALS: BMI 28.9
[2023-04-22 10:04] VITALS: BP 169/91; PULSE 87; RESP 18; TEMP 36.2; O2SAT 95
[2023-04-22] MEDS: LACTATED RINGERS 1,000 ML 150 ML IV CONT (10:15)
--- NOTE | 2023-04-22 10:29 | PM.HPGS ---
History of Present Illness History of Present Illness Consent: Risks, benefits, and alternatives have been discussed and questions answered. Patient agrees to proceed with procedure. Chief complaint: hx colon polyps Narrative: Chilo Dooley is a 68 year old male referred for colon cancer screening. Ten years ago he had removal of a tubular adenoma. Review of Systems Review of Systems: All systems reviewed & are unremarkable except as noted in HPI and below PMFSH Past Medical History Medical History Cervical spine arthritis Chronic pain of left ankle DVT (deep venous thrombosis) (~2013) 2014 - LLE Dyslipidemia Eczema ankle Erectile dysfunction Essential (primary) hypertension History of blood clots History of colon polyps Hypertension Hypogonadism in male Medial meniscus, posterior horn derangement Right knee DJD Right rotator cuff tear Type 2 diabetes mellitus without complication, without long-term current use of insulin Vitamin D deficiency Surgical History Surgical History H/O right knee surgery (~12/2020) History of foot surgery (~2013) Left x3 2014 History of medial meniscus repair of right knee 12/2020 Family History Family History Sibling Diabetes mellitus Mother Diabetes mellitus Hypertension Father Hypertension Other Arthritis High cholesterol Social History Social History Smoking packs per day: 3 Smoking cigarettes per day: 60.0 Years smoked: 38 Smoking pack-years: 114.00 Smoking status: Former smoker Tobacco type: cigarettes Second hand tobacco smoke exposure: No Smoking end date: 10/12/94 Alcohol intake: current Alcohol use details: seldom Substance use: never Substance use type: does not use Lack of Transportation: No Lack of Food: Never True Current Housing: I Have Housing Concerned About Future Housing: No Difficulty Paying Gas/Electric Bills: No Difficulty Paying for Meds: No Currently Unemployed: No Education: High School Diploma/GED Difficulty w/ Childcare or Family Care: No Living arrangements: with family 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/Education: occupation 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 Gender identity (if verbalized by the patient): Male Spiritual care concerns: No Meds Home Medications and Allergies Home Medications Medication Instructions Recorded Confirmed Type fluocinonide 0.05 % topical cream 1 applic topical BID 11/16/19 04/08/23 History lancets 30 gauge (OneTouch Delica #25 ea 11/16/19 01/21/23 History Lancets) acetaminophen [Tylenol] 650 mg PO BID PRN Pain 11/29/20 04/08/23 History multivitamin 1 tablet PO DAILY 11/29/20 04/08/23 History naproxen sodium [Aleve] 220 mg PO PRN PRN Pain 11/29/20 04/08/23 History omega-3 fatty acids 1,000 mg 1,000 mg PO DAILY 11/29/20 04/08/23 History capsule (Fish Oil Concentrate) saw palmetto 1 tab-cap PO DAILY 11/29/20 04/08/23 History vitamin B complex (B 1 tablet PO DAILY 11/29/20 04/08/23 History Complex-Vitamin B12 tablet) blood sugar diagnostic #100 ea 04/30/21 01/21/23 Rx tadalafil 20 mg tablet (Cialis) 20 mg PO DAILY PRN Erectile 02/10/22 04/08/23 Rx Dysfunction #30 tabs fenofibrate 160 mg tablet 160 mg PO DAILY #90 tabs 12/08/22 04/08/23 Rx metformin 500 mg tablet,extended 2,000 mg PO QPM #360 tabs 01/19/23 04/08/23 Rx release 24 hr tramadol 50 mg tablet 50 mg PO TID PRN Pain #60 tabs 02/02/23 04/08/23 Rx lisinopril 40 mg tablet 40 mg PO DAILY #90 tabs 02/06/23 04/08/23 Rx hydrochlorothiazide 25 mg tablet 25 mg PO DAILY #90 tabs 02/11/23 04/08/23 Rx glipizide 10 mg tablet, extended 10 mg PO DAILY #90 tabs 02/18/23 04/08/23 Rx release 24 hr aspirin 81 mg tablet,delayed 81 mg PO DAILY 04/08/23 04/08/23 History r
[2023-04-22 10:40] LABS: Glucose Point of Care 134 mg/dl (65-105)
[2023-04-22] MEDS: SIMETHICONE ORAL SUSPENSION 20 MG/0.3 ML 30 ML BOTTLE 0.6 ML IRRIGATION (11:07)
--- NOTE | 2023-04-22 11:08 | WPDANESEPPF ---
Anes - Initial Pre Proc Eval Procedure: Operation Date: 04/22/23 11:00 Proposed Procedures p Colonoscopy - Mike Izaguirre MD Date/Time: 04/22/23 11:08 Surgeon: Mike Izaguirre MD Pre Op Diagnosis: hx colon polyps Patient Data Age: 68 Gender: M Height: 1.88 m Weight: 100.7 kg Last Vital Signs Temp 97.2 F L 04/22/23 10:04 Pulse 87 04/22/23 10:04 Resp 18 04/22/23 10:04 BP 169/91 H 04/22/23 10:04 Pulse Ox 95 04/22/23 10:04 O2 Del Method Room Air 04/22/23 10:04 Allergies Allergy/AdvReac Type Severity Reaction Status Date / Time No Known Allergies Allergy Verified 04/22/23 10:00 Home Medications Medication Instructions Recorded Confirmed Type fluocinonide 0.05 % topical cream 1 applic topical BID 11/16/19 04/08/23 History lancets 30 gauge (OneTouch Delica #25 ea 11/16/19 01/21/23 History Lancets) acetaminophen [Tylenol] 650 mg PO BID PRN Pain 11/29/20 04/08/23 History multivitamin 1 tablet PO DAILY 11/29/20 04/08/23 History naproxen sodium [Aleve] 220 mg PO PRN PRN Pain 11/29/20 04/08/23 History omega-3 fatty acids 1,000 mg 1,000 mg PO DAILY 11/29/20 04/08/23 History capsule (Fish Oil Concentrate) saw palmetto 1 tab-cap PO DAILY 11/29/20 04/08/23 History vitamin B complex (B 1 tablet PO DAILY 11/29/20 04/08/23 History Complex-Vitamin B12 tablet) blood sugar diagnostic #100 ea 04/30/21 01/21/23 Rx tadalafil 20 mg tablet (Cialis) 20 mg PO DAILY PRN Erectile 02/10/22 04/08/23 Rx Dysfunction #30 tabs fenofibrate 160 mg tablet 160 mg PO DAILY #90 tabs 12/08/22 04/08/23 Rx metformin 500 mg tablet,extended 2,000 mg PO QPM #360 tabs 01/19/23 04/08/23 Rx release 24 hr tramadol 50 mg tablet 50 mg PO TID PRN Pain #60 tabs 02/02/23 04/08/23 Rx lisinopril 40 mg tablet 40 mg PO DAILY #90 tabs 02/06/23 04/08/23 Rx hydrochlorothiazide 25 mg tablet 25 mg PO DAILY #90 tabs 02/11/23 04/08/23 Rx glipizide 10 mg tablet, extended 10 mg PO DAILY #90 tabs 02/18/23 04/08/23 Rx release 24 hr aspirin 81 mg tablet,delayed 81 mg PO DAILY 04/08/23 04/08/23 History release (Adult Aspirin Regimen) Laboratory Tests 04/22/23 10:36 POC Capillary Glucose 134 H mg/dl (65-105) Patient hx anesthesia problems: none Family hx anesthesia problems: none Results Review: All pre-operative results and documents have been reviewed as part of the pre-operative evaluation. [facility] Past Medical History Medical History Cervical spine arthritis Chronic pain of left ankle DVT (deep venous thrombosis) (~2013) 2014 - LLE Dyslipidemia Eczema ankle Erectile dysfunction Essential (primary) hypertension History of blood clots History of colon polyps Hypertension Hypogonadism in male Medial meniscus, posterior horn derangement Right knee DJD Right rotator cuff tear Type 2 diabetes mellitus without complication, without long-term current use of insulin Vitamin D deficiency Surgical History Surgical History H/O right knee surgery (~12/2020) History of foot surgery (~2013) Left x3 2014 History of medial meniscus repair of right knee 12/2020 Family History Family History Sibling Diabetes mellitus Mother Diabetes mellitus Hypertension Father Hypertension Other Arthritis High cholesterol Social History Social History Smoking packs per day: 3 Smoking cigarettes per day: 60.0 Years smoked: 38 Smoking pack-years: 114.00 Smoking status: Former smoker Tobacco type: cigarettes Second hand tobacco smoke exposure: No Smoking end date: 10/12/94 Alcohol intake: current Alcohol use details: seldom Substance use: never Substance use type: does not use Lack of Transportation: No Lack of Food: Never True Current Housing: I Have Housin
[2023-04-22 11:23] VITALS: BP 117/76; PULSE 70; RESP 18; O2SAT 96
[2023-04-22 11:33] VITALS: BP 138/91; PULSE 73; RESP 20; O2SAT 97
[2023-04-22 11:43] VITALS: BP 143/96; PULSE 70; RESP 20; O2SAT 98
== END 2023-04-22 11:56 | disposition home or self-care (01) ==
PROVIDERS: PCP Family Medicine; Visit Provider Internal Medicine Gastroenterology
PROC: 0DJD8ZZ Inspection of Lower Intestinal Tract, Via Natural or Artificial Opening Endoscopic (ICD-10-PCS; CPT 45378; principal; 2023-04-22 11:00)
DX: Z12.11 Encounter for screening for malignant neoplasm of colon (principal); K57.30 Diverticulosis of large intestine without perforation or abscess without bleeding; Z86.010 Personal history of colon polyps; I10 Essential (primary) hypertension; E78.5 Hyperlipidemia, unspecified; E11.9 Type 2 diabetes mellitus without complications; E55.9 Vitamin D deficiency, unspecified; Z86.718 Personal history of other venous thrombosis and embolism; Z87.891 Personal history of nicotine dependence; E66.9 Obesity, unspecified; Z68.28 Body mass index [BMI] 28.0-28.9, adult; Z79.84 Long term (current) use of oral hypoglycemic drugs; Z79.82 Long term (current) use of aspirin
CPT/HCPCS: 45378; 82948; J2704; J7120

== ENCOUNTER 2023-04-30 13:30 | Outpatient (RCR) | payer BC, SELFPAY ==
--- NOTE | 2023-03-19 15:46 | OPREHPOC ---
Outpatient Therapy Plan of Care This is a Multidisciplinary Plan of Care that may contain components documented by all disciplines (PT, OT, and ST.) PT Problem 1 PT Problem #1 Knowledge Deficit PT Goal 1 Goal Pt to be IND with issued HEP Target Visit 6 PT Problem 2 PT Problem #2 Pain PT Goal 1 Goal Pt to report pain no greater than 3/10 in the last week Target Visit 6 PT Goal 2 Goal Pt to report 50% improvement in altered sensation Target Visit 6 PT Problem 3 PT Problem #3 Impaired Strength PT Goal 1 Goal Pt to demonstrate upright sitting posture for 5 mins without cueing Target Visit 6 PT Problem 4 PT Problem #4 Impaired Range of Motion PT Goal 1 Goal Pt to improve janusz cervical lateral flexion to 35 deg Target Visit 6
--- NOTE | 2023-03-19 15:46 | PTOPEVAL1 ---
Assessment and note entered by Maria Antonia Magana, PT, DPT Evaluation Information Assessment Status Evaluation Diagnosis cervical radiculopathy Onset chronic Subjective Information Pt is returning to therapy after receiving injections in his neck. He completed 9 visits of skilled therapy in January of this year but progress was limited by pain. He states the injections helped a lot with his pain and he is now hoping to benefit from therapy to progress his ROM and address his numbness. He reports R sided paraesthesias 100% of the time in his 5th digit, ~50 % of the time altered sensation will be from the elbow down. He reports numbness with muted sensations in his hand with intermittent tingling. Reported Pain Level Pain Score 0: Self Report Assessment PT Clinical Summary Chilo presents to therapy today for his intial evaluation with a diagnosis of cervical radiculopathy. Today he reports paraesthesias of the R elbow and hand, demonstrates decreased cervical ROM, and poor postural awareness. Skilled therapy services are indicated to address the deficits noted above, to improve strength of postural stabilizers, to improve altered sensation, and to improve baseline function. Plan of Care Interventions Electrical Stimulation,Hot Pack/Cold Pack,Manual Therapy,Mechanical Traction,Neuro Re-education, Patient/Caregiver Educati,Therapeutic Activities, Therapeutic Exercise PT Services Indicated Yes Treatment Frequency and 1x/wk for 6 wks Duration These treatments will address the objective and functional deficits as defined above. The patient will be advanced safely and appropriately in order for the patient to progress towards his/her prior level of function. Additional exercises will be introduced and as well as a comprehensive home exercise program upon discharge, if needed, ?to ensure carryover of functional gains achieved in the clinic. This treatment plan has been reviewed and agreement upon by the patient.
--- NOTE | 2023-04-09 15:30 | PCPTNOTE ---
On 04/09/23, the student, Sujata Torres provided care and completed [facility] documentation on this patient. I have reviewed the student's documentation and agree with the findings.
--- NOTE | 2023-04-16 16:33 | PCPTNOTE ---
On 04/16/23, the student, Melissa Ernst provided care and completed [facility] documentation on this patient. I have reviewed the student's documentation and agree with the findings.
--- NOTE | 2023-04-30 14:00 | PTOPDC ---
Assessment and note entered by Maria Antonia Magana, PT, DPT Evaluation Information Assessment Status Discharge Diagnosis cervical radiculopathy Onset chronic Subjective Information Pt states his 4th and 5th digits on the R are a little more numb than they usually are. He states he does his exercises on most days of the week. He states he is starting to have a little bit of pain at rest, where he did not before. Pt states he is eager to see what the neurosurgeon says on Thursday. Reported Pain Level Pain Score 2: Self Report Assessment PT Clinical Summary Chilo presents to therapy today for his progress report following 6 visits of skilled therapy to treat his diagnosis of cervical radiculopathy. Today he reports no improvement in his 4th and 5th digit paraesthesias. Cervical ROM, pain, and sensation has remained relatively unchanged. Pt would like to be discharged at this time.
== END 2023-05-05 10:35 | disposition home or self-care (01) ==
LOC: ANHGOSHPT 13:30
PROVIDERS: PCP Family Medicine; Visit Provider Nurse Practitioner Family
DX: M54.12 Radiculopathy, cervical region (principal)
CPT/HCPCS: 97012; 97110; 97112; 97140; 97161

== ENCOUNTER 2023-07-30 09:47 | Outpatient (CLI) | payer BC, SELFPAY ==
--- NOTE | 2023-07-30 09:56 | ECG_ITS ---
Measurements Intervals [place] Rate: 90 P: 48 [place]: 160 QRS: -24 QRSD: 95 T: 49 QT: 361 QTc: 443 Interpretive Statements SINUS RHYTHM BORDERLINE LEFT AXIS DEVIATION [QRS AXIS < -20] BORDERLINE ECG COMPARED TO ECG 12/05/2020 13:28:40 NO SIGNIFICANT CHANGES Electronically Signed On 07-30-2023 17:18:01 CDT by Dipak Headley M.D.
[2023-07-30 10:18] LABS: Hematocrit 47.8 % (42.0-52.0); Hemoglobin 16.5 g/dL (14.0-18.0); Mean Corpuscular HGB Conc 34.5 g/dl (32-36); Mean Corpuscular Hemoglobin 31.9 pg (26-34); Mean Corpuscular Volume 92.3 fl (80-100); Mean Platelet Volume 9.6 fl (7.4-10.4); Platelet Count Result 204 k/mm3 (150-375); Red Blood Count 5.18 M/mm3 (4.6-6.20); Red Cell Distribution Width 12.9 % (11.5-14.5); White Blood Count 5.8 K/mm3 (4.5-10.0)
[2023-07-30 10:23] LABS: Appearance Urine Clear (Clear); Bilirubin Urine Negative (Negative); Blood Urine Negative (Negative); Color Urine Yellow (Yellow); Glucose Urine UA Negative (Negative); Ketones Urine Negative (Negative); Leukocyte Esterase Ur Negative LEU/UL (Negative); Nitrate Urine Negative (Negative); Protein Urine Negative (Negative); Specific Grav Ur 1.011 (1.001-1.035); Urobilinogen Urine 0.2 mg/dL (<2.0)
[2023-07-30 10:28] LABS: Anion Gap 8 mmol/L (8-16); Blood Urea Nitrogen 15 mg/dL (9-20); Calcium 9.5 mg/dL (8.4-10.2); Carbon Dioxide 29 mmol/L (22-30); Chloride 98 mmol/L (98-107); Estimated Glomerular Filt Rate > 60; Glucose 152 mg/dL (65-110); Sodium 135 mmol/L (137-145)
[2023-07-30 10:29] LABS: INR 0.9; Partial Thromboplastin Time 24.6 SECONDS (22.3-36.8); Prothrombin Time 12.7 Seconds (11.1-14.7)
[2023-07-30 10:30] LABS: Add Urine Microscopic? NO
--- NOTE | 2023-08-27 12:56 | PM.DS ---
DS: Admitting Diagnosis Discharge Date 07/30/23 Admitting Diagnosis right C-7-T1 foraminal stenosis, radiculopathy DS: Discharge Diagnosis Discharge Diagnosis (1) Status post cervical arthrodesis: Code(s): Z98.1 - Arthrodesis status Status: Acute (2) Foraminal stenosis of cervical region: Code(s): M48.02 - Spinal stenosis, cervical region Status: Acute DS: Summary Hospital Course Hospital Course: Mr. Dooley is a 68-year-old male history of right upper extremity pain and weakness related to stenosis in the foramen at C7-T1 on the right side. He presented for surgery on August 04. Please see the operative note for more details. He was transferred to the floor after surgery. He worked with physical therapy after surgery. His neck pain was tolerable with oral medications. He noticed some improvement in his arm symptoms and mobility after surgery. He was tolerating oral intake and ambulating well. He was ready for discharge home on postoperative day 1. Time Spent with Patient Time attestation: Total time spent providing and/or coordinating discharge services: Exam Narrative: AOx4 Cervical dressing with small amount of serosanguinous drainage in place Full strength in all extremities with exception of slight intrinsic weakness on the right Sensation intact Discharge Plan Discharge Patient Disposition: Home, Self-Care Discharge Medications: No Action omega-3 fatty acids [Fish Oil Concentrate] 1,000 mg capsule 1,000 mg PO DAILY vitamin B complex [B Complex-Vitamin B12] Tablet 1 tablet PO DAILY multivitamin Tablet 1 tablet PO DAILY Patient Comments: per patient home medication list provided 11/29/20 olvin limon 1 tab-cap PO DAILY naproxen sodium 220 mg PO PRN PRN (Reason: Pain) Patient Comments: per patient home medication list provided 11/29/20 acetaminophen 650 mg PO PRN PRN (Reason: Pain) cholecalciferol (vitamin D3) 25 mcg (1,000 unit) Tablet 25 mcg PO DAILY cyclobenzaprine 10 mg Tablet 10 mg PO TID PRN (Reason: Muscle Spasms) 7 Days Qty: 30 0RF hydrocodone-acetaminophen 5-325 mg Tablet 1 tablet PO Q4H PRN (Reason: Mild Pain (1-3)) 7 Days Qty: 42 0RF sennosides-docusate sodium [Senokot-S] 8.6-50 mg Tablet 1 tab PO HS PRN (Reason: Constipation) 7 Days Qty: 14 0RF aspirin [Adult Aspirin Regimen] 81 mg Tablet,Delayed Release (Dr/Ec) 81 mg PO DAILY fluocinonide 0.05 % cream 1 applic TOPICAL BID Rx Instructions: apply by topical route 2 times every day to the affected area(s) (DME) lancets [OneTouch Delica Lancets] 30 gauge misc See Rx Instructions .ROUTE .MEDSUPPLY Qty: 25 Rx Instructions: As directed (DME) blood sugar diagnostic Strip See Rx Instructions .ROUTE .MEDSUPPLY Qty: 100 1RF Rx Instructions: check sugars qdaily As directed tramadol 50 mg tablet 50 mg PO TID PRN (Reason: Pain) Qty: 60 0RF fenofibrate 160 mg tablet 160 mg PO DAILY Qty: 90 1RF Rx Instructions: TAKE 1 TABLET BY ORAL ROUTE EVERY DAY metformin 500 mg tablet extended release 24 hr 2,000 mg PO QPM Qty: 360 1RF Rx Instructions: TAKE 4 TABLET BY ORAL ROUTE EVERY DAY WITH THE EVENING MEAL hydrochlorothiazide 25 mg tablet 25 mg PO DAILY Qty: 90 1RF lisinopril 40 mg tablet 40 mg PO DAILY Qty: 90 1RF glipizide 10 mg tablet extended release 24hr 10 mg PO DAILY Qty: 90 0RF
== END 2023-07-30 09:48 | disposition home or self-care (01) ==
LOC: ANHSURGERY 09:50
PROVIDERS: PCP Family Medicine; Visit Provider Neurological Surgery
DX: Z01.812 Encounter for preprocedural laboratory examination (principal); Z01.810 Encounter for preprocedural cardiovascular examination; M48.02 Spinal stenosis, cervical region
CPT/HCPCS: 36415; 80048; 81003; 85027; 85610; 85730; 86850; 86900; 86901; 93005

== ENCOUNTER 2023-08-04 11:35 | Inpatient (IN) | payer BC, SELFPAY ==
--- NOTE | 2023-07-28 13:32 | PC.NURSE ---
Report to the Outpatient Waiting Room, entrance under the green pavilion located off [facility], at time __30 on date __08/04/23 . Planned Procedure Time: . Time changes happen often and if your time is changed the preop area will call you the afternoon before. - You and your visitor will be asked to self-screen and do not enter if you have any COVID symptoms. - A mask is optional within the hospital at this time. Patients may have clear liquids (water, carbonated beverages, clear teas, apple juice) until 3 hours prior to surgery with a maximum of 20 ounces. - No food from midnight until time of surgery - Infants may have breast milk until 4 hours before surgery, formula 6 hours prior to surgery. - Children will be allowed to drink immediately following surgery. If applicable, please bring a bottle or sippy cup to assist with drinking. Juice, water, soda, and popsicles are readily available. For infants on formula, please bring formula the day of surgery. Pacifiers are allowed. Take the following medications with a SIP of water the morning of surgery: __NONE DO NOT STOP ANY OF YOUR OTHER PRESCRIPTION MEDICATIONS PRIOR TO SURGERY ?EXCEPT THE FOLLOWING Medications to discontinue per physician _PT STATES HOLD ASPIRIN AND ALEVE 7 DAYS PRE OP PER DR TORRES.LAST DOSE 07/27/23. ALL VITAMINS AND SUPPLEMENTS 3 DAYS PRE OP.LAST DOSE 07/31/23 Please no make-up, nail belarusian, hairspray, perfume, deodorant, or body powder the day of surgery. No jewelry (including any body piercings) or valuables the day of surgery, leave them at home. Please take a shower or bath the night before, or the morning of, surgery with an antibacterial soap. Wear comfortable, loose fitting clothing. Children are encouraged to wear pajamas. - Jewelry must be removed prior to entering the operating room. Rings and piercings that are not removed may be cut off. - The hospital will not accept responsibility for valuables. - Please leave all valuables, including medications, at home the day of surgery. If you are going home after surgery, a licensed semi driver must drive you home. - NO public transportation without another adult if you receive anesthesia. - We recommend that an adult stay with you for 24 hours following discharge. - We also recommend that you do not drive, make important decision, drink alcoholic beverages, or take any drugs that were not prescribed by your health care provider for at least 24 hours after your discharge time. For Pediatric surgeries, we recommend two adults accompany the child home. Follow any additional instructions given to you from your surgeon. If you or anyone in your household have experienced Covid symptoms in the past week, please notify your surgeon or the nurse liaison at the phone number below for possible testing. Telephone instructions given to __PATIENT and asked if any additional questions and then verbalized understanding. Patient advised to call surgeon office or pre surgery nurse liaison [phone] if any additional questions.
[2023-07-28 13:41] VITALS: BMI 28.9
[2023-08-04] VITALS (14 sets, daily range): BP systolic 70–154; BP diastolic 47–87; PULSE 83–98; RESP 11–18; TEMP 36.1–37; O2SAT 91–98
--- NOTE | ~2023-08-04 | XR_ITS ---
XR fluoroscopy no charge Procedure: C7-T1 laminectomy/foraminotomy, C6-T1 lateral mass instrumentation. TECHNIQUE: Fluoroscopy used during C7-T1 laminectomy/foraminotomy, C6-T1 lateral mass instrumentatio n. performed by [Rip Franklin MD] on 08/04/2023. 7 seconds of fluoroscopy with 2 fluoroscop ic images captured. FINDINGS: Correlate with procedure note. IMPRESSION: Fluoroscopy used during C7-T1 laminectomy/foraminotomy, C6-T1 lateral mass instrumentatio n.. Reviewed, dictated and finalized at location L. IMPRESSION: Fluoroscopy used during C7-T1 laminectomy/foraminotomy, C6-T1 later al mass instrumentation..
[2023-08-04] MEDS: LACTATED RINGERS 1,000 ML 30 ML IV CONT ×2 (07:55→13:14)
[2023-08-04 08:02] LABS: Glucose Point of Care 206 mg/dl (65-105)
--- NOTE | 2023-08-04 09:38 | WPDANESEPPF ---
Anes - Initial Pre Proc Eval Procedure: Operation Date: 08/04/23 09:30 Proposed Procedures p Right C7-T1 Lumbar Laminectomy and Foraminotomy, - Rip Franklin MD s C6-T1 Lateral Mass Instrumental Fusion - Rip Franklin MD Date/Time: 08/04/23 09:38 Surgeon: Rip Franklin MD Pre Op Diagnosis: right C-7-T1 foraminal stenosis, radiculopathy Patient Data Age: 68 Gender: M Height: 1.88 m Weight: 102 kg Last Vital Signs Temp 98.3 F 08/04/23 07:41 Pulse 94 08/04/23 07:41 Resp 18 08/04/23 07:41 BP 149/83 H 08/04/23 07:41 Pulse Ox 96 08/04/23 07:41 O2 Del Method Room Air 08/04/23 07:41 Allergies Allergy/AdvReac Type Severity Reaction Status Date / Time No Known Allergies Allergy Verified 08/04/23 07:40 Home Medications Medication Instructions Recorded Confirmed Type fluocinonide 0.05 % topical cream 1 applic topical BID 11/16/19 08/04/23 History lancets 30 gauge (OneTouch Delica #25 ea 11/16/19 01/21/23 History Lancets) acetaminophen [Tylenol] 650 mg PO PRN PRN Pain 11/29/20 08/04/23 History multivitamin 1 tablet PO DAILY 11/29/20 08/04/23 History naproxen sodium [Aleve] 220 mg PO PRN PRN Pain 11/29/20 08/04/23 History omega-3 fatty acids 1,000 mg 1,000 mg PO DAILY 11/29/20 08/04/23 History capsule (Fish Oil Concentrate) saw palmetto 1 tab-cap PO DAILY 11/29/20 08/04/23 History vitamin B complex (B 1 tablet PO DAILY 11/29/20 08/04/23 History Complex-Vitamin B12 tablet) blood sugar diagnostic #100 ea 04/30/21 01/21/23 Rx tramadol 50 mg tablet 50 mg PO TID PRN Pain #60 tabs 02/02/23 08/04/23 Rx lisinopril 40 mg tablet 40 mg PO DAILY #90 tabs 02/06/23 08/04/23 Rx hydrochlorothiazide 25 mg tablet 25 mg PO DAILY #90 tabs 02/11/23 08/04/23 Rx glipizide 10 mg tablet, extended 10 mg PO DAILY #90 tabs 02/18/23 08/04/23 Rx release 24 hr aspirin 81 mg tablet,delayed 81 mg PO DAILY 04/08/23 08/04/23 History release (Adult Aspirin Regimen) fenofibrate 160 mg tablet 160 mg PO DAILY #90 tabs 06/04/23 08/04/23 Rx metformin 500 mg tablet,extended 2,000 mg PO QPM #360 tabs 07/20/23 08/04/23 Rx release 24 hr cholecalciferol (vitamin D3) 25 25 mcg PO DAILY 07/28/23 08/04/23 History mcg (1,000 unit) tablet Laboratory Tests 08/04/23 07:55 POC Capillary Glucose 206 H mg/dl (65-105) Patient hx anesthesia problems: none Family hx anesthesia problems: none Results Review: All pre-operative results and documents have been reviewed as part of the pre-operative evaluation. [facility] Past Medical History Medical History Cervical spine arthritis Chronic pain of left ankle DVT (deep venous thrombosis) (~2013) 2014 - LLE Dyslipidemia Eczema ankle Erectile dysfunction Essential (primary) hypertension History of blood clots History of colon polyps Hypertension Hypogonadism in male Medial meniscus, posterior horn derangement Right knee DJD Right rotator cuff tear Type 2 diabetes mellitus without complication, without long-term current use of insulin Vitamin D deficiency Surgical History Surgical History H/O right knee surgery (~12/2020) History of foot surgery (~2013) Left x3 2014 History of medial meniscus repair of right knee 12/2020 Family History Family History Sibling Diabetes mellitus Mother Diabetes mellitus Hypertension Father Hypertension Other Arthritis High cholesterol Social History Social History (Updated 05/05/23 @ 16:18 by Ana Bonilla MA) Smoking packs per day: 3 Smoking cigarettes per day: 60.0 Years smoked: 38 Smoking pack-years: 114.00 Smoking status: Former smoker Tobacco type: cigarettes Second hand tobacco smoke exposure: No Smoking end date: 10/12/94 Alcohol intake: current Alcohol use details: ONE DRINK PER MONTH Subs
--- NOTE | 2023-08-04 09:54 | PM.IMHP ---
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 He has not changed appreciably since we last saw him. He is not having any bowel or bladder difficulty or other constitutional problem. He does not have any specific muscle group weakness other than in the dean of instruction and intrinsics. He has numbness in an ulnar distribution. Review of Systems Review of Systems: Patient denies shortness of breath, cough, fever, chills, nausea, vomiting, weight loss, weight gain, chest pain, dysuria. He has right arm and neck discomfort weakness and numbness. His review of systems otherwise negative on 12 systems except as noted elsewhere. [facility] Past Medical History Medical History Cervical spine arthritis Chronic pain of left ankle DVT (deep venous thrombosis) (~2013) 2014 - LLE Dyslipidemia Eczema ankle Erectile dysfunction Essential (primary) hypertension History of blood clots History of colon polyps Hypertension Hypogonadism in male Medial meniscus, posterior horn derangement Right knee DJD Right rotator cuff tear Type 2 diabetes mellitus without complication, without long-term current use of insulin Vitamin D deficiency Surgical History Surgical History H/O right knee surgery (~12/2020) History of foot surgery (~2013) Left x3 2013 History of medial meniscus repair of right knee 12/2020 Family History Family History Sibling Diabetes mellitus Mother Diabetes mellitus Hypertension Father Hypertension Other Arthritis High cholesterol Social History Social History (Updated 05/05/23 @ 16:18 by Ana Bonilla MA) Smoking packs per day: 3 Smoking cigarettes per day: 60.0 Years smoked: 38 Smoking pack-years: 114.00 Smoking status: Former smoker Tobacco type: cigarettes Second hand tobacco smoke exposure: No Smoking end date: 10/12/94 Alcohol intake: current Alcohol use details: ONE DRINK PER MONTH Substance use: never Substance use type: does not use Lack of Transportation: No Lack of Food: Never True Current Housing: I Have Housing Concerned About Future Housing: No Difficulty Paying Gas/Electric Bills: No Difficulty Paying for Meds: No Currently Unemployed: No Education: High School Diploma/GED Difficulty w/ Childcare or Family Care: No Living arrangements: with family Occupation/Education: occupation 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 Gender identity (if verbalized by the patient): Male Spiritual care concerns: No Agree to blood products: Yes Meds Home Medications and Allergies Home Medications Medication Instructions Recorded Confirmed Type fluocinonide 0.05 % topical cream 1 applic topical BID 11/16/19 08/04/23 History lancets 30 gauge (OneTouch Delica #25 ea 11/16/19 01/21/23 History Lancets) acetaminophen [Tylenol] 650 mg PO PRN PRN Pain 11/29/20 08/04/23 History multivitamin 1 tablet PO DAILY 11/29/20 08/04/23 History naproxen sodium [Aleve] 220 mg PO PRN PRN Pain 11/29/20 08/04/23 History omega-3 fatty acids 1,000 mg 1,000 mg PO DAILY 11/29/20 08/04/23 History capsule (Fish Oil Concentrate) saw palmetto 1 tab-cap PO DAILY 11/29/20 08/04/23 History vitamin B complex (B 1 tablet PO DAILY 11/29/20 08/04/23 History Complex-Vitamin B12 tablet) blood sugar diagnostic #100 ea 04/30/21 01/21/23 Rx tramadol 50 mg tablet 50 mg PO TID PRN Pain #60 tabs 02/02/23 08/04/23 Rx lisinopril 40 mg tablet 40 mg PO DAILY #90 tabs 02/06/23 08/04/23 Rx hydrochlorothiazide 25 mg tablet 25 mg PO DA
--- NOTE | 2023-08-04 10:00 | WPDHPUPDATE1 ---
History and Physical Update Update Date/Time: 08/04/23 10:00 History and Physical has been reviewed, including an updated exam of the patient. There are NO changes in the patient's condition. Risks, benefits, and alternatives have been discussed and questions answered. Patient agrees to proceed with procedure.
[2023-08-04] MEDS: ceFAZolin 2 GM/D5W 50 ML 2 GM/50 ML BAG IVPB (10:27)
[2023-08-04] MEDS: LIDO 1%/EPINEPHRINE 1:100,000 50 ML VIAL 10 ML INFILTRATE (11:41)
--- NOTE | 2023-08-04 11:57 | SUR.PREOP ---
0745 PT INFORMED OF POSSIBLE SURGERY TIME DELAY.
--- NOTE | 2023-08-04 12:42 | W.PM.PROC2 ---
Procedure Note - Detailed Date of Procedure 08/04/23 Pre-op Diagnosis right C-7-T1 foraminal stenosis, radiculopathy Post-op Diagnosis Same Procedure Performed C7 laminectomy and right C7-T1 foraminotomy, C6-T1 lateral mass instrumented fusion Surgeon Rip Franklin MD Anesthesia General Description of Procedure The patient was brought to the operating room in the supine position, was sedated, intubated and placed under general anesthesia in routine fashion. He was then turned into the prone position on gel rolls with his head in a horseshoe Pineda head sulfide operator. The area of operation on the back was back was examined, marked incision, prepped and draped in routine sterile fashion. Incision was marked over the C5 through T1 spinous processes in the midline. This area was injected with 0.5% lidocaine with [id number] epinephrine. Intravenous antibiotics given prior to incision. Incision was made with a 10 blade scalpel. A subperiosteal dissection of the muscle soft tissue away from spinous process and lamina at C5 through T1 was performed with a subperiosteal elevator and Bovie cautery. A verifying x-rays obtained to verify the level of operation. At the C7 level a Midas Brian drill was used to cut the lamina bilaterally. The lamina and spinous process could then be removed in 1 piece and were morselized for later use as autograft. Midas Brian drill was used to perform a limited bony foraminotomy on the right at C7-T1. Kerrison punches and curved curettes were used to define a plane and removed additional bone and ligament until the nerve was adequately decompressed. This was confirmed by placing a nerve hook next to the nerve out the foramen. Pedicle screw instrumentation was performed the T1 by observing and palpating the pedicle wall a hole was made and superior articular process above the pedicle using a Midas Brian drill. Pedicle was then cannulated with a pedicle probe, checked for continuity with the ball probe, tapped with a 3.5 mm tap and a 30 mm by a 4 mm screw was placed in each T1 pedicle. Lateral mass screws were placed at C6 by a piercing the cortex with a Midas Brian drill at a point just medial and inferior to the middle of the facet. A 14 mm hole was created using a power drill a trajectory 20? cephalad 20? lateral from that hole. 14 x 4 mm screw was then placed into the C6 lateral mass bilaterally. The facets and lateral masses were decorticated using a Midas Brian drill. Copious irrigation was performed with saline prior to this. The additional autograft bone was packed against the corticated surfaces and inside the facets. 40 mm rods were then placed into the screw heads on either side and secured in position using the caps that purpose. These were definitively tightened with the torque and anti torque device. A medium Hemovac drain was left in the subfascial position buried up to the inferior right of the incision. An x-ray was performed to try to confirm good position of the instrumentation but this was difficult given the position of the shoulders. The wound was then closed in layered fashion with 2-0 Vicryl interrupted sutures in the cervical fascia and in Rajni's layer. 3-0 Vicryl buried interrupted sutures were placed in the dermis and the skin was closed with a running 4-0 Monocryl subcuticular stitch and dressed with Dermabond. The patient was allowed to wake up in the operating room and was taken to the recovery room in stable condition. There were no immediate complications of this operation. All counts were reported correct at the end of the case. Blood loss was 200 cc. The patient was neurologically at his baseline postoperatively. Estimated Blood Loss 200 IV Fluids 1,500 Drains Yes Complications None Condition Stable Disposition PACU [facility] Billing Surgery - Charge Forward: Surgery Billing
[2023-08-04 13:06] LABS: Glucose Point of Care 213 mg/dl (65-105)
[2023-08-04] MEDS: PHENYLEPHRINE 1,000 MCG/10 ML SYRINGE 200 MCG IV PUSH ×2 (13:10→13:20)
[2023-08-04] MEDS: KCL 20 MEQ/D5/0.45% SOD CHL 1,000 ML 100 ML IV CONT (14:44)
[2023-08-04] MEDS: HYDROcodone/acetaminophen (*CRX) 10-325 MG TABLET 1 TAB PO ×3 (14:45→23:15)
[2023-08-04] MEDS: CYCLOBENZAPRINE HCL 10 MG TABLET PO (16:15)
[2023-08-04 16:56] LABS: Glucose Point of Care 259 mg/dl (65-105)
[2023-08-04] MEDS: metFORMIN HCL XR 500 MG TAB.SR.24H 2000 MG PO (17:45)
[2023-08-04 21:13] LABS: Glucose Point of Care 253 mg/dl (65-105)
[2023-08-04] MEDS: HYDROcodone/acetaminophen (*CRX) 5-325 MG TABLET 1 TAB PO (21:13)
[2023-08-04] MEDS: DOCUSATE SODIUM 100 MG CAPSULE PO (21:14)
[2023-08-05] VITALS: BP 128/75; PULSE 97; RESP 20; TEMP 36.7; O2SAT 93
[2023-08-05 03:58] VITALS: BP 130/77; PULSE 95; RESP 18; TEMP 36.6; O2SAT 94
[2023-08-05] MEDS: HYDROcodone/acetaminophen (*CRX) 5-325 MG TABLET 1 TAB PO (05:41)
[2023-08-05] MEDS: VITAMIN B COMPLEX CAPSULE 1 CAP PO (09:38)
[2023-08-05] MEDS: HYDROcodone/acetaminophen (*CRX) 10-325 MG TABLET 1 TAB PO ×2 (09:38→13:55)
[2023-08-05] MEDS: glipiZIDE XL 5 MG TABCR 10 MG PO (09:39)
[2023-08-05] MEDS: hydroCHLOROthiazide 25 MG TABLET PO (09:39)
[2023-08-05] MEDS: FENOFIBRATE 160 MG TABLET PO (09:39)
[2023-08-05] MEDS: lisinopriL 20 MG TABLET 40 MG PO (09:39)
[2023-08-05] MEDS: CHOLECALCIFEROL 1,000 UNITS TABLET 1000 UNITS PO (09:39)
[2023-08-05] MEDS: DOCUSATE SODIUM 100 MG CAPSULE PO (09:39)
[2023-08-05] MEDS: OMEGA 3 POLYUNSAT FATTY ACIDS 1 GM CAP PO (09:39)
[2023-08-05] MEDS: MULTIVITAMINS THERAPEUTIC TAB (*BKC) 1 TABLET PO (09:39)
[2023-08-05 10:00] VITALS: BP 160/75; PULSE 103; RESP 26; TEMP 36.7; O2SAT 97
[2023-08-05 11:59] LABS: Glucose Point of Care 289 mg/dl (65-105)
--- NOTE | 2023-08-05 13:02 | WPDANESPN ---
Anes - Prog Note Post-Op Date/Time: 08/05/23 13:02 Cardiovascular status: normal Respiratory status: normal Airway patency: baseline Mental status: baseline Post-Op hydration status: normal Vital Signs: Last Vital Signs Temp 36.7 C 08/05/23 10:00 Pulse 103 H 08/05/23 10:00 Resp 26 H 08/05/23 10:00 BP 160/75 H 08/05/23 10:00 Pulse Ox 97 08/05/23 10:00 O2 Del Method Room Air 08/05/23 08:00 O2 Flow Rate 2 08/04/23 14:14 Pain Score (VAS): 1 I/O: Intake & Output 08/04/23 08/05/23 08/05/23 23:59 07:59 15:59 Intake Total 730 240 Output Total 500 725 Balance 230 -725 240 08/04/23 08/04/23 08/04/23 13:04 16:50 21:09 POC Capillary Glucose 213 H 259 H 253 H 08/05/23 11:57 POC Capillary Glucose 289 H Post-procedural complaints: none Patient Feedback: Patient satisfied with anesthetic care.
[2023-08-05 13:17] VITALS: BP 136/71; PULSE 102; RESP 24; TEMP 37.4; O2SAT 95
--- NOTE | 2023-08-05 15:06 | WPDNEUROSGPN ---
Progress Note: A&P Assessment and Plan (1) Status post cervical arthrodesis: Code(s): Z98.1 - Arthrodesis status Status: Acute Plan s/p PCDF C6-T1 on 08/04 Plan: -Remove hemovac drain today -Discharge home today -Restrictions reviewed at bedside Subjective Date/time seen: 08/05/23 15:06 Interval history: Doing well today overall. Neck pain is tolerable. He has noticed some improvement in his arms and mobility since surgery. He is tolerating PO and feels ready to go home today. Review of Systems Review of Systems: All systems reviewed & are unremarkable except as noted in HPI and below Exam Narrative: AOx4 Cervical dressing with small amount of serosanguinous drainage in place Full strength in all extremities with exception of slight intrinsic weakness on the right Sensation intact Objective Data Vital Signs Vital Signs: Vital Signs - 24 hr 08/04/23 16:12 08/04/23 15:25 08/04/23 16:25 Temperature 97.6 F 96.9 F L Pulse Rate 89 95 Respiratory Rate 16 16 Blood Pressure 154/71 H 142/72 H Pulse Oximetry 92 91 Oxygen Delivery Room Air 08/04/23 20:19 08/05/23 00:00 08/05/23 03:58 Temperature 98.0 F 98.1 F 97.9 F Pulse Rate 98 97 95 Respiratory Rate 18 20 18 Blood Pressure 114/67 128/75 130/77 Pulse Oximetry 93 93 94 Oxygen Delivery 08/05/23 10:00 08/05/23 08:00 08/05/23 13:17 Temperature 98.0 F 99.4 F Pulse Rate 103 H 102 H Respiratory Rate 26 H 24 H Blood Pressure 160/75 H 136/71 Pulse Oximetry 97 95 Oxygen Delivery Room Air Intake/Output Intake/Output: Intake & Output 08/02/23 08/03/23 08/04/23 08/05/23 23:59 23:59 23:59 23:59 Intake Total 4280 360 Output Total 500 725 Balance 3780 -365 Meds/Results Medications: Active Medications Generic Name Dose Route Start Last Admin Trade Name Freq PRN Reason Stop Dose Admin Acetaminophen 650 mg 08/04/23 14:26 Acetaminophen 325 Mg Tablet PO Q6H PRN Mild Pain (1-3) Hydrocodone Bitart/Acetaminophen 1 tab 08/04/23 14:17 08/05/23 05:41 Hydrocodone/Acetaminophen (*Crx) 5-325 Mg Tablet PO 1 tab Q4H PRN Administration Mild Pain (1-3) Hydrocodone Bitart/Acetaminophen 1 tab 08/04/23 14:17 08/05/23 13:55 Hydrocodone/Acetaminophen (*Crx) 10-325 Mg Tablet PO 1 tab Q4H PRN Administration Moderate Pain (4-6) Al Hydrox/Mg Hydrox/Simethicone 20 ml 08/04/23 14:17 Mag Hydrox/Al Hydrox/Simeth 30 Ml Udc PO Q4H PRN Indigestion/Heartburn Bisacodyl 10 mg 08/04/23 14:17 Bisacodyl 10 Mg Suppository RECTAL DAILY PRN Constipation Cyclobenzaprine HCl 10 mg 08/04/23 14:17 08/04/23 16:15 Cyclobenzaprine Hcl 10 Mg Tablet PO 10 mg TID PRN Administration Muscle Spasms Docusate Sodium 100 mg 08/04/23 21:00 08/05/23 09:39 Docusate Sodium 100 Mg Capsule PO 100 mg Q12HR TAMMIE Administration Fenofibrate 160 mg 08/05/23 09:00 08/05/23 09:39 Fenofibrate 160 Mg Tablet PO 160 mg DAILY TAMMIE Administration Fish Oil 1 gm 08/05/23 09:00 08/05/23 09:39 [place] 3 Polyunsat Fatty Acids 1 Gm Cap PO 1 gm DAILY TAMMIE Administration Glipizide 10 mg 08/05/23 08:00 08/05/23 09:39 Glipizide Xl 5 Mg Tabcr PO 10 mg DAILY@0800 TAMMIE Administration Hydrochlorothiazide 25 mg 08/05/23 09:00 08/05/23 09:39 Hydrochlorothiazide 25 Mg Tablet PO 25 mg DAILY TAMMIE Administration Potassium Chloride/Dextrose/Sod Cl 1,000 mls @ 100 mls/hr 08/04/23 14:17 08/04/23 17:50 Kcl 20 Meq/D5/0.45% Sod Chl IV CONT 30 mls/hr .Q10H TAMMIE Infusion Lisinopril 40 mg 08/05/23 09:00 08/05/23 09:39 Lisinopril 20 Mg Tablet PO 40 mg DAILY TAMMIE Administration Metformin HCl 2,000 mg 08/04/23 18:00 08/04/23 17:45 Metformin Hcl Xr 500 Mg Tab.Sr.24h PO 2,000 mg QPM TAMMIE Administration Morphine Sulfate 2 mg 08/04/23 14:17 Morphine Sulfate (*Crx) 2 Mg/Ml Inj IV PUSH Q2H PRN Pain Rated 7-10
--- NOTE | 2023-09-02 13:33 | PM.DS ---
DS: Admitting Diagnosis Discharge Date 08/05/23 Admitting Diagnosis Right C7-T1 foraminal stenosis DS: Discharge Diagnosis Discharge Diagnosis (1) Foraminal stenosis of cervical region: Code(s): M48.02 - Spinal stenosis, cervical region Status: Acute DS: Summary Hospital Course Hospital Course: the patient was taken the operating room on 08/04/2023 with the aforementioned operation, that is, a right C7-T1 laminectomy and foraminotomy with C6-T1 lateral mass instrumented fusion was performed without complication. The patient went to the floor postoperatively. His drain was removed on postoperative day 1. Later on postoperative day 1 he was eating, ambulating, emptying his bladder his pain was under control with by mouth pain medicine. His wounds remained clean dry and intact. He was afebrile with stable vital signs. He was therefore allowed to be discharged to home. Status at Discharge Functional status at discharge: independent ambulation Time Spent with Patient Time attestation: Total time spent providing and/or coordinating discharge services: Discharge Plan Discharge Attending physician on discharge: Rip Franklin Consulting providers: Tommy Galvan; Jax Soto; Dominic Wilkerson; Adilene Harrison Discharging Clinician: Rip Franklin Patient Disposition: Home, Self-Care Activity: february shower Diet: as tolerated Discharge Instructions: No lifting more than 10 lbs Ok to shower starting on Do not submerge incision under water until cleared by Dr. Franklin Call the office at [phone] with any concerns before your appointment Follow-up/Referrals: Rip Franklin MD [Physician] - Discharge Medications: Continued omega-3 fatty acids [Fish Oil Concentrate] 1,000 mg capsule 1,000 mg PO DAILY vitamin B complex [B Complex-Vitamin B12] Tablet 1 tablet PO DAILY multivitamin Tablet 1 tablet PO DAILY Patient Comments: per patient home medication list provided 11/29/20 saw palmetto 1 tab-cap PO DAILY naproxen sodium 220 mg PO PRN PRN (Reason: Pain) Patient Comments: per patient home medication list provided 11/29/20 acetaminophen 650 mg PO PRN PRN (Reason: Pain) cholecalciferol (vitamin D3) 25 mcg (1,000 unit) Tablet 25 mcg PO DAILY fluocinonide 0.05 % cream 1 applic TOPICAL BID Rx Instructions: apply by topical route 2 times every day to the affected area(s) (DME) lancets [OneTouch Delica Lancets] 30 gauge misc See Rx Instructions .ROUTE .MEDSUPPLY Qty: 25 Rx Instructions: As directed (DME) blood sugar diagnostic Strip See Rx Instructions .ROUTE .MEDSUPPLY Qty: 100 1RF Rx Instructions: check sugars qdaily As directed tramadol 50 mg tablet 50 mg PO TID PRN (Reason: Pain) Qty: 60 0RF fenofibrate 160 mg tablet 160 mg PO DAILY Qty: 90 1RF Rx Instructions: TAKE 1 TABLET BY ORAL ROUTE EVERY DAY metformin 500 mg tablet extended release 24 hr 2,000 mg PO QPM Qty: 360 1RF Rx Instructions: TAKE 4 TABLET BY ORAL ROUTE EVERY DAY WITH THE EVENING MEAL hydrochlorothiazide 25 mg tablet 25 mg PO DAILY Qty: 90 1RF lisinopril 40 mg tablet 40 mg PO DAILY Qty: 90 1RF glipizide 10 mg tablet extended release 24hr 10 mg PO DAILY Qty: 90 0RF Held aspirin [Adult Aspirin Regimen] 81 mg Tablet,Delayed Release (Dr/Ec) 81 mg PO DAILY Hold Instructions: Resume on 08/11/23. Date of admission: 08/04/23 11:35 Primary Care Provider: Romy Roy Admitting Provider: Rip Franklin Attending physician on admission: Rip Franklin Condition: Improved
--- NOTE | 2023-09-02 13:35 | PM.DS ---
DS: Admitting Diagnosis Discharge Date 08/05/23 Admitting Diagnosis Right C7-T1 foraminal stenosis DS: Discharge Diagnosis Discharge Diagnosis Plan Right C7-T1 foraminal stenosis DS: Summary Hospital Course Hospital Course: patient was taken to the operating room on 08/04/2023 where a right C7-T1 laminectomy and foraminotomy with C6-T1 lateral mass instrumented fusion was performed without complication. The patient went to the floor postoperatively. On postoperative day 1 his drain was removed. Later on postoperative day 1 he was eating, ambulating, emptying his bladder and his pain was under control with by mouth pain medicine. His wounds remained clean dry and intact. He was afebrile with stable vital signs. He was therefore allowed to be discharged to home. Time Spent with Patient Time attestation: Total time spent providing and/or coordinating discharge services: Discharge Plan Discharge Attending physician on discharge: Rip Franklin Consulting providers: Tommy Galvan; Jax Soto; Dominic Wilkerson; Adilene Harrison Discharging Clinician: Rip Franklin Patient Disposition: Home, Self-Care Activity: may shower Diet: as tolerated Discharge Instructions: No lifting more than 10 lbs Ok to shower starting on Do not submerge incision under water until cleared by Dr. Franklin Call the office at [phone] with any concerns before your appointment Follow-up/Referrals: Rip Franklin MD [Physician] - Discharge Medications: Continued omega-3 fatty acids [Fish Oil Concentrate] 1,000 mg capsule 1,000 mg PO DAILY vitamin B complex [B Complex-Vitamin B12] Tablet 1 tablet PO DAILY multivitamin Tablet 1 tablet PO DAILY Patient Comments: per patient home medication list provided 11/29/20 saw palmetto 1 tab-cap PO DAILY naproxen sodium 220 mg PO PRN PRN (Reason: Pain) Patient Comments: per patient home medication list provided 11/29/20 acetaminophen 650 mg PO PRN PRN (Reason: Pain) cholecalciferol (vitamin D3) 25 mcg (1,000 unit) Tablet 25 mcg PO DAILY fluocinonide 0.05 % cream 1 applic TOPICAL BID Rx Instructions: apply by topical route 2 times every day to the affected area(s) (DME) lancets [OneTouch Delica Lancets] 30 gauge misc See Rx Instructions .ROUTE .MEDSUPPLY Qty: 25 Rx Instructions: As directed (DME) blood sugar diagnostic Strip See Rx Instructions .ROUTE .MEDSUPPLY Qty: 100 1RF Rx Instructions: check sugars qdaily As directed tramadol 50 mg tablet 50 mg PO TID PRN (Reason: Pain) Qty: 60 0RF fenofibrate 160 mg tablet 160 mg PO DAILY Qty: 90 1RF Rx Instructions: TAKE 1 TABLET BY ORAL ROUTE EVERY DAY metformin 500 mg tablet extended release 24 hr 2,000 mg PO QPM Qty: 360 1RF Rx Instructions: TAKE 4 TABLET BY ORAL ROUTE EVERY DAY WITH THE EVENING MEAL hydrochlorothiazide 25 mg tablet 25 mg PO DAILY Qty: 90 1RF lisinopril 40 mg tablet 40 mg PO DAILY Qty: 90 1RF glipizide 10 mg tablet extended release 24hr 10 mg PO DAILY Qty: 90 0RF Held aspirin [Adult Aspirin Regimen] 81 mg Tablet,Delayed Release (Dr/Ec) 81 mg PO DAILY Hold Instructions: Resume on 08/11/23. Date of admission: 08/04/23 11:35 Primary Care Provider: Romy Roy Admitting Provider: Rip Franklin Attending physician on admission: Rip Franklin Condition: Improved
== END 2023-08-05 15:40 | disposition home or self-care (01) | DRG 473 ==
LOC: ANH2MED 08-05 13:42 → ANHSURGERY 08-10 09:49 → ANH2MED 08-10 09:49
PROVIDERS: Admitting Provider Neurological Surgery; PCP Family Medicine; Visit Provider Neurological Surgery
PROC: 0RG4071 Fusion of Cervicothoracic Vertebral Joint with Autologous Tissue Substitute, Posterior Approach, Posterior Column, Open Approach (ICD-10-PCS; CPT 63005; principal; 2023-08-04 09:30)
PROC: 0RG4071 Fusion of Cervicothoracic Vertebral Joint with Autologous Tissue Substitute, Posterior Approach, Posterior Column, Open Approach (ICD-10-PCS; CPT 22612; 2023-08-04 09:30)
DX: M48.03 Spinal stenosis, cervicothoracic region (principal); M54.13 Radiculopathy, cervicothoracic region; E78.5 Hyperlipidemia, unspecified; I10 Essential (primary) hypertension; N52.9 Male erectile dysfunction, unspecified; E11.9 Type 2 diabetes mellitus without complications; E55.9 Vitamin D deficiency, unspecified; Z86.718 Personal history of other venous thrombosis and embolism; Z87.891 Personal history of nicotine dependence; Z79.4 Long term (current) use of insulin; Z79.891 Long term (current) use of opiate analgesic; Z79.84 Long term (current) use of oral hypoglycemic drugs; Z79.82 Long term (current) use of aspirin; E66.9 Obesity, unspecified; Z68.28 Body mass index [BMI] 28.0-28.9, adult
CPT/HCPCS: 82948; 97116; 97161; 97165; 97530; 97535; 99199; A9270; C1713; J0330; J0690; J1100; J1170; J2250; J2371; J2405; J2704; J3010; J3480; J7120

== ENCOUNTER → 2023-09-14 10:01 | Outpatient (CLI) | payer BC, SELFPAY ==
--- NOTE | ~2023-09-14 | XR_ITS ---
[id number] 09/14/2023 10:24 Indication: Arthrodesis. Procedure: 4 view cervical spine Comparison: 12/24/2022 Findings: There are surgical changes of C7-T1 laminectomy with C6-T1 lateral mass instrumentation. Th ere is moderate disc narrowing with endplate degenerative change at C6-7. No acute fracture or trauma tic malalignment. Hardware appears to be intact. There is mild multilevel facet hypertrophy. Lung api deysi are normal. Odontoid process is normal. No prevertebral soft tissue abnormality. Impression: 1: Mild-moderate spondylosis with postoperative changes of C7-T1 laminectomy with lateral mass instru mentation at C6-T1. Reviewed, dictated and finalized at location B. EW MANAGER Impression: 1: Mild-moderate spondylosis with postoperative changes of C7-T1 laminectomy wi th lateral mass instrumentation at C6-T1.
== END ==
PROVIDERS: PCP Neurological Surgery; Visit Provider Neurological Surgery
DX: Z98.1 Arthrodesis status (principal); M47.892 Other spondylosis, cervical region
CPT/HCPCS: 72040

== ENCOUNTER 2023-09-23 13:21 | Outpatient (RCR) | payer BC, SELFPAY ==
--- NOTE | 2023-09-23 14:30 | PTOPEVDC ---
Assessment and note entered by Maria Antonia Magana, PT, DPT Thank you for referring Chilo Dooley to [facility].? An evaluation has been completed. No further treatment is needed. Evaluation Information Assessment Status Evaluation Diagnosis posterior cervical fusion C7-T1 Onset 08/04/23 Subjective Information Pt reports he has a posterior fusion on 08/04/23. He states he is doing really well so far and has weaned off the collar in the last 2 weeks. 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 Reported Pain Level Pain Score 1: Self Report Assessment PT Clinical Summary Chilo presents to therapy today for his initial evaluation following a posterior C7-T1 fusion on 08/04/23. Today he demonstrates good cervical and shoulder ROM that is WNL and pain free. He demonstrates good functional shoulder strength, resistance does not increase pain. Today he was educated in a gentle HEP to encourage improved posture and chest opening. Functional lift and carries were reviewed today and pt was able to lift 30lb without any pain or compensations. Pt does not require continuation of skilled therapy services and will be discharged at this time. Plan of Care PT Services Indicated No Treatment Frequency and evaluate and discharge Duration
== END 2023-09-23 15:39 | disposition home or self-care (01) ==
LOC: ANHGOSHPT 13:21
PROVIDERS: PCP Family Medicine; Visit Provider Neurological Surgery
DX: Z47.89 Encounter for other orthopedic aftercare (principal); Z98.1 Arthrodesis status
CPT/HCPCS: 97110; 97161; 97530

== ENCOUNTER 2024-07-06 08:28 | Outpatient (CLI) | payer MEDICARE, SELFPAY ==
[2024-07-06 14:21] LABS: Rheumatoid Factor < 12.0 IU/ML (<12)
[2024-07-11 15:44] LABS: Anti Cyclic Citrullinated Pept <16 UNITS
== END 2024-07-06 08:29 | disposition home or self-care (01) ==
LOC: ANHGOSHLAB 08:29
PROVIDERS: PCP Family Medicine; Visit Provider Nurse Practitioner Family
DX: M25.572 Pain in left ankle and joints of left foot (principal); R20.0 Anesthesia of skin; G89.29 Other chronic pain; H04.123 Dry eye syndrome of bilateral lacrimal glands; R53.83 Other fatigue
CPT/HCPCS: 36415; 86038; 86039; 86200; 86430

== ENCOUNTER 2024-08-31 08:34 | Outpatient (CLI) | payer MEDICARE, SELFPAY ==
[2024-08-31 14:12] LABS: Basophils Percent Auto 0.7 % (0.2-1.2); Eosinophils Absolute Auto 0.2 K/mm3 (0-0.3); Hematocrit 46.1 % (42.0-52.0); Hemoglobin 15.5 g/dL (14.0-18.0); Immature Granulocyte Absolute 0.02 K/mm3 (0.00-0.031); Immature Granulocyte Percent A 0.4 % (0-0.5); Lymphocytes Absolute Auto 0.79 K/mm3 (0.9-3.2); Lymphocytes Percent Auto 13.9 % (18.3-44.2); Mean Corpuscular HGB Conc 33.6 g/dl (32-36); Mean Corpuscular Hemoglobin 31.6 pg (26-34); Mean Corpuscular Volume 94.1 fl (80-100); Mean Platelet Volume 10.4 fl (7.4-10.4); Monocytes Absolute Auto 0.6 K/mm3 (0.1-0.6); Monocytes Percent Auto 10.4 % (2.6-8.5); Neutrophils Absolute Auto 4.1 K/mm3 (1.3-6.7); Neutrophils Percent Auto 71.6 % (45.5-73.1); Platelet Count Result 171 k/mm3 (150-375); Red Cell Distribution Width 13.2 % (11.5-14.5); White Blood Count 5.7 K/mm3 (4.5-10.0)
[2024-08-31 14:49] LABS: Microalbumin Urine Random < 6.0 mg/L (0-16.7)
[2024-08-31 14:50] LABS: MALB Creatinine Ratio < 12.0 mg/g (0-30)
[2024-08-31 16:41] LABS: Vitamin D 25 Hydroxy 38.5 ng/mL
[2024-08-31 16:55] LABS: Thyroid Stimulating Hormone Reflex 0.948 uIU/mL (0.465-4.68)
[2024-08-31 18:41] LABS: Alanine Aminotransferase 20 U/L (6-50); Albumin Level 4.4 g/dL (3.5-5.1); Alkaline Phosphatase 38 U/L (38-126); Anion Gap 6 mmol/L (4-12); Aspartate Amino Transferase 37 U/L (17-59); Blood Urea Nitrogen 18 mg/dL (9-20); Calcium 9.2 mg/dL (8.4-10.2); Carbon Dioxide 31 mmol/L (22-30); Chloride 99 mmol/L (98-107); Cholesterol 188 mg/dL (0-200); Estimated Glomerular Filt Rate > 60; Glucose 133 mg/dL (65-110); HDL Direct 43 mg/dL; Potassium 4.4 mmol/L (3.4-5.0); Sodium 136 mmol/L (137-145); Triglycerides 333 mg/dL (<150)
[2024-08-31 18:51] LABS: LDL Cholesterol Direct 87 mg/dL
[2024-08-31 19:11] LABS: Prostate Specific Antigen 0.3 ng/mL (< OR = 4.0)
[2024-08-31 19:29] LABS: Hemoglobin A1C 6.8 % (<5.7)
== END 2024-08-31 08:35 | disposition home or self-care (01) ==
LOC: ANHGOSHLAB 08:36
PROVIDERS: PCP Family Medicine; Visit Provider Family Medicine
DX: Z12.5 Encounter for screening for malignant neoplasm of prostate (principal); E78.5 Hyperlipidemia, unspecified; E11.9 Type 2 diabetes mellitus without complications; I10 Essential (primary) hypertension; E55.9 Vitamin D deficiency, unspecified; E53.8 Deficiency of other specified B group vitamins; N52.9 Male erectile dysfunction, unspecified
CPT/HCPCS: 36415; 80053; 80061; 82043; 82306; 82607; 83036; 84153; 84443; 85025; G0103

== ENCOUNTER 2024-09-14 12:54 | Outpatient (CLI) | payer MEDICARE, SELFPAY ==
--- NOTE | 2024-09-14 14:30 | NEURO_ITS ---
Impression: # Complains of right upper extremity pain. # Right ulnar neuropathy across the elbow. # No Carpal Tunnel Syndrome. # Needle/EMG exam mildly neurogenic in upper extremities proximally. Nerve Conduction Studies Anti Sensory Summary Table Stim Site NR Peak (ms) P-T Amp (?V) Site1 Site2 Delta-P (ms) Dist (cm) Don (m/s) Left Median Anti Sensory (2-3nd Digit) Wrist 3.2 20.3 Wrist 2-3nd Digit 3.2 14.0 44 Wrist 3.1 15.7 Wrist 2-3nd Digit 3.2 14.0 44 Right Median Anti Sensory (2-3nd Digit) Wrist 3.3 23.4 Wrist 2-3nd Digit 3.3 14.0 42 Wrist 3.1 19.8 Wrist 2-3nd Digit 3.3 14.0 42 Left Radial Anti Sensory (Base 1st Digit) Wrist 2.7 10.6 Wrist Base 1st Digit 2.7 0.0 Right Radial Anti Sensory (Base 1st Digit) Wrist 2.7 5.8 Wrist Base 1st Digit 2.7 0.0 7.6 34.2 Left Ulnar Anti Sensory (5th Digit) Wrist 2.8 10.4 Wrist 5th Digit 2.8 14.0 50 Right Ulnar Anti Sensory (5th Digit) Wrist 2.2 47.7 Wrist 5th Digit 2.2 14.0 64 Motor Summary Table Stim Site NR Onset (ms) O-P Amp (mV) Site1 Site2 Delta-0 (ms) Dist (cm) Don (m/s) Left Median Motor (Abd Poll Brev) Wrist 2.8 2.6 Elbow Wrist 6.1 34.0 56 Elbow 8.9 1.8 Right Median Motor (Abd Poll Brev) Wrist 3.4 8.4 Elbow Wrist 5.4 31.0 57 Elbow 8.8 5.9 Left Ulnar Motor (Abd Dig Minimi) Wrist 2.6 3.8 A Elbow Wrist 5.4 33.0 61 A Elbow 8.0 4.2 Right Ulnar Motor (Abd Dig Minimi) Wrist 2.7 4.9 A Elbow Wrist 6.4 32.0 50 A Elbow 9.1 4.2 B Elbow Wrist 3.7 22.0 59 B Elbow 6.4 2.5 F Wave Studies NR F-Lat (ms) L-R F-Lat (ms) Left Median (Mrkrs) (Abd Poll Brev) 30.57 1.49 Right Median (Mrkrs) (Abd Poll Brev) 29.08 1.49 Left Ulnar (Mrkrs) (Abd Dig Min) 30.66 1.09 Right Ulnar (Mrkrs) (Abd Dig Min) 31.76 1.09 EMG Side Muscle Nerve Root Ins Act Fibs Amp Dur Recrt Comment Right 1stDorInt Ulnar C8-T1 Nml Nml Nml Nml Nml Right Ext Indicis Radial (Post Int) C7-8 Nml Nml Nml Nml Nml Right Ext Digitorum Radial (Post Int) C7-8 Nml Nml Nml Nml Nml Right BrachioRad Radial C5-6 Nml Nml Nml >12ms +1 Right PronatorTeres Median C6-7 Nml Nml Nml Nml Nml Right Abd Poll Brev Median C8-T1 Nml Nml Nml Nml Nml Right ABD Dig Min Ulnar C8-T1 Nml Nml Nml Nml Nml Left 1stDorInt Ulnar C8-T1 Nml Nml Nml Nml Nml Left Ext Indicis Radial (Post Int) C7-8 Nml Nml Nml Nml Nml Left Ext Digitorum Radial (Post Int) C7-8 Nml Nml Nml Nml Nml Left BrachioRad Radial C5-6 Nml Nml Nml >12ms +1 Left PronatorTeres Median C6-7 Nml Nml Nml Nml Nml Left Abd Poll Brev Median C8-T1 Nml Nml Nml Nml Nml Left ABD Dig Min Ulnar C8-T1 Nml Nml Nml Nml Nml Right Biceps Musculocut C5-6 Nml Nml Nml Nml Nml Right Triceps Radial C6-7-8 Nml Nml Nml >12ms +1 Right Deltoid Axillary C5-6 Nml Nml Nml Nml Nml Left Biceps Musculocut C5-6 Nml Nml Nml Nml Nml Left Triceps Radial C6-7-8 Nml Nml Nml >12ms +1 Left Deltoid Axillary C5-6 Nml Nml Nml Nml Nml MTDD
== END 2024-09-14 12:55 | disposition home or self-care (01) ==
PROVIDERS: PCP Family Medicine; Visit Provider Nurse Practitioner Family
DX: G56.21 Lesion of ulnar nerve, right upper limb (principal); M48.02 Spinal stenosis, cervical region
CPT/HCPCS: 95886; 95911

== ENCOUNTER 2024-11-09 11:30 | Outpatient (CLI) | payer MEDICARE, SELFPAY ==
--- NOTE | 2024-11-09 11:44 | ECG_ITS ---
Test Date: 2024-11-09 11:59:54 Measurements Intervals [place] Rate: 86 P: 54 ND: 189 QRS: -24 QRSD: 106 T: 49 QT: 372 QTc: 445 Interpretive Statements SINUS RHYTHM WITH OCCASIONAL VENTRICULAR PREMATURE COMPLEXES BORDERLINE LEFT AXIS DEVIATION [QRS AXIS < -20] NONSPECIFIC T-WAVE ABNORMALITY No previous ECG available for comparison Electronically Signed On 11-09-2024 16:09:43 SURVEYOR MINE by Natali Sandoval M.D.
[2024-11-09 12:41] LABS: Anion Gap 15 mmol/L (4-12); Blood Urea Nitrogen 17 mg/dL (9-20); Calcium 9.5 mg/dL (8.4-10.2); Carbon Dioxide 23 mmol/L (22-30); Chloride 99 mmol/L (98-107); Estimated Glomerular Filt Rate > 60; Glucose 124 mg/dL (65-110); Sodium 137 mmol/L (137-145)
--- OUTSIDE RECORDS SUMMARY | 2024-11-09 12:55 | XMS_ITS | Clinical Summary ---
Author Organization [employer] [facility] Address [address] Attn: Epic Prelude ADT [place] [address] Care Team Providers Care Slab Tripper Name Role Phone Unavailable Primary Care Provider Unavailabl e Medications testosterone cypionate (DEPO-TESTOSTE DEENA) 200 mg/mL Oil Inject 1 mL (200 mg) by intramuscular injection every 30 days. 3 mL 1 2 Active traMADoL (ULTRAM) 50 mg tablet Take 1 Tablet (50 mg) by mouth 2 times daily as needed for pain. 30 Tablet 02/26/2022 11:09 AM CDT 2 Active testosterone cypionate (DEPO-TESTOSTE DEENA) 200 mg/mL Oil Inject 1 mL (200 mg) by intramuscular injection every 30 days. 3 mL 1 07/05/2022 10:18 AM CDT 2 Active methylPREDNISo lone (MEDROL DOSPACK) 4 mg Tablets, Dose Pack Take as directed on package. 21 Each 12/10/2022 8:12 AM AUTOMOTIVE SERVICE PROFESSIONAL 3 Active meloxicam (MOBIC) 15 mg tablet Take 1 Tablet (15 mg) by mouth daily. 30 Tablet 12/19/2022 2:56 PM AUTOMOTIVE SERVICE PROFESSIONAL 3 Active ALPRAZolam (XANAX) 0.5 mg tablet Take 1 tablet by mouth 1 hour prior to MRI procedure. DO NOT DRIVE FOR THE REMAINDER OF THAT DAY. 1 Tablet 01/23/2023 10:41 AM CDT 3 Active traMADoL (ULTRAM) 50 mg tablet Take 1 Tablet (50 mg) by mouth 3 times daily as needed for pain. 60 Tablet 02/02/2023 9:58 AM CDT 3 Active hydroCHLOROthi azide 25 mg tablet Take 1 Tablet (25 mg) by mouth daily. 90 Tablet 1 3 Active gabapentin (Neurontin) 300 mg capsule Take 1-2 cap(s) by mouth at bedtime as needed 60 Capsule 02/12/2023 5:03 PM CDT 3 Active methylPREDNISo lone (MEDROL DOSPACK) 4 mg Tablets, Dose Pack Take as directed on package. 21 Each 05/05/2023 9:53 AM CDT 3 Active cyclobenzaprin e (FLEXERIL) 10 mg tablet Take 1 Tablet (10 mg) by mouth 3 times daily as needed for muscle spasms. 30 Tablet 08/05/2023 4:18 PM CDT 3 Active HYDROcodone-ac etaminophen (NORCO) 5-325 mg tablet Take 1 Tablet by mouth every 4 hours as needed for mild pain (1-3) for 7 days. 42 Tablet 08/05/2023 4:18 PM CDT 3 Active sennosides-doc usate sodium (SENNA-S) 8.6-50 mg tablet Take 1 Tablet by mouth at bedtime as needed for constipation. 14 Tablet 08/05/2023 4:18 PM CDT 3 Active meloxicam (MOBIC) 7.5 mg tablet Take 1 Tablet (7.5 mg) by mouth daily. 30 Tablet 1 04/19/2024 12:08 PM CDT 4 Active metFORMIN (GLUCOPHAGE XR) 500 mg Extended Release 24 hour tablet Take 4 Tablets (2,000 mg) by mouth every day with the evening meal. 360 Tablet 1 08/25/2024 11:52 AM AUTOMOTIVE SERVICE PROFESSIONAL 4 Active glipiZIDE (GLUCOTROL XL) 10 mg Extended Release 24 hour tablet Take 1 Tablet (10 mg) by mouth daily. 90 Tablet 1 08/30/2024 9:32 AM AUTOMOTIVE SERVICE PROFESSIONAL 4 Active fenofibrate (LOFIBRA) 160 mg Tablet Take 1 Tablet (160 mg) by mouth daily. 90 Tablet 1 08/30/2024 9:32 AM AUTOMOTIVE SERVICE PROFESSIONAL 4 Active lisinopriL (PRINIVIL) 40 mg tablet Take 1 Tablet (40 mg) by mouth daily. 90 Tablet 1 08/30/2024 9:32 AM AUTOMOTIVE SERVICE PROFESSIONAL 4 Active hydroCHLOROthi azide 25 mg tablet Take 1 Tablet (25 mg) by mouth daily. 90 Tablet 1 08/30/2024 9:32 AM AUTOMOTIVE SERVICE PROFESSIONAL 4 Active metFORMIN (GLUCOPHAGE XR) 500 mg Extended Release 24 hour tablet Take 4 Tablets (2,000 mg) by mouth daily with the evening meal. 360 Tablet 1 4 Active traMADoL (ULTRAM) 50 mg tablet Take 1 Tablet (50 mg) by mouth 2 times daily as needed for pain. 60 Tablet 10/19/2024 12:15 PM AUTOMOTIVE SERVICE PROFESSIONAL 4 Active Encounters Date Type Department Care Team Description 10/18/2024 External Device Data [facility] ABSTRACTION Provider, Abstract 08/10/2024 External Device Data [facility] ABSTRACTION Provider, Abstract from Last 3 Months Social History Tobacco Use Types Packs/Day Years Used Date Smoking Tobacco: Never Assessed Sex and Gender Information Value Date Recorded Sex Assigned at Not on file Legal Sex Male 3:27 PM CDT Gender Identity Not on file Sexual Orientation Not on file Plan of Treatment Health Maintenance Due Date Last Done Comments DTAP/TDAP/TD VACCINES (1 - Tdap) 1974 COLORECTAL SCREENING 2000 Colorectal Cancer Screening 2000 FIT-DNA Q 3 years 2000 FIT/FOBT Q 1 year 2000 Flex Sig/CT Colonography Q 5 years 2000 PNEUMOCOCCAL VACCINE 65+ YEARS (1 of 1 - PCV) 03/05/20 05 ZOSTER VACCINE (1 of 2) 2005 INFLUENZA VACCINE (#1) 2024 RSV VACCINE (60+ or ) (1 - 1-dose 75+ series) 2030 Insurance RX NUR PLANS (INTERNAL) [facility] RX [employer] RX Member Subscriber Plan / Payer (Ef fective 2024-Present) Name:Chilo Dooley Relation to Subscriber:Self Name:Chilo Dooley Subscriber ID:Not on file Payer ID:Not on file Group ID:[id number] Type:RX Medicare Part D Address: [place]
--- OUTSIDE RECORDS SUMMARY | 2024-11-09 12:55 | XMS_ITS | Clinical Summary ---
Author Organization [facility] Address [address] [facility] [address] [place] [address] Phone Care Team Providers Care Appeals Court Associate Justice Name Role Phone Kenton Roy MD Primary Care Provider Social History Tobacco Use Types Packs/Day Years Used Date Smoking Tobacco: Never Assessed Sex and Gender Information Value Date Recorded Sex Assigned at Not on file Legal Sex Male 9:01 PM CDT Gender Identity Not on file Sexual Orientation Not on file Plan of Treatment Health Maintenance Due Date Last Done Comments Hepatitis C Virus (HCV) Screening 1955 TdaP Immunization 1955 Cologuard 2005 Immunochemical Fecal Occult Blood 2005 Pneumococcal Immunization (5 0+ years) (1 of 1 - PCV) 2005 Zoster Immunization (1 of 2) 2005 PSA Discussion 2010 Colonoscopy 04/04/2022 04/04/2021 Colorectal Cancer Screening 04/04/2022 Influenza Immunization (#1) 2024 SARS-COV-2 Immunization ( - 2023- season) 2024 Respiratory Syncytial Virus (RSV) Immunization (Adult) (1 - 1-dose 75+ series) 2030 04/04/2021 Hepatitis B Immunization Aged Out No longer eligible based on patient's age to complete this topic Meningococcal Immunization (ACWY) Aged Out No longer eligible based on patient's age to complete this topic Rotavirus Immunization Aged Out No lo nger eligible based on patient's age to complete this topic Procedures Procedure Name Priority Date/Time Associated Diagnosis Comments COLONOSCOPY Routine 04/04/2021 from Last 3 Months or Most Recently Relevant to Health Maintenance Results * HM COLONOSCOPY (04/04/2021) Myke Chandrika Stacey DO PROCEDURE/MINOR SURGICAL ORDERA BLES Final Result from Last 3 Months or Most Recently Relevant to Health Maintenance Insurance Care Teams Appeals Court Associate Justice Relationship Specialty Start Date End Date Kenton Roy MD PCP - General Family Medicine 02/11/21
== END 2024-11-09 11:31 | disposition home or self-care (01) ==
PROVIDERS: PCP Family Medicine; Visit Provider Anesthesiology
DX: Z01.818 Encounter for other preprocedural examination (principal); E11.9 Type 2 diabetes mellitus without complications; I10 Essential (primary) hypertension
CPT/HCPCS: 36415; 80048; 93005

== ENCOUNTER 2024-11-24 08:03 | Day surgery (SDC) | payer MEDICARE, SELFPAY ==
[2024-11-03 15:14] VITALS: BMI 28.8
--- NOTE | 2024-11-24 06:59 | PM.HPGS ---
History of Present Illness History of Present Illness Chief complaint: Right Cubital Tunnel Syndrome Narrative: Patient seen and examined in pre-operative holding area. No interval change in medical history or symptoms. Patient recalls previous discussion of benefits and alternatives to procedure. Continues to desire to proceed with right cubital tunnel release. Reviewed procedure, post-op expectations and risks including but not limited to bleeding, infection, injury to tendon/nerve/vessel, decreased hand function, stiffness, RSD, no change or worsening of symptoms. I discussed the possible use of assistants and their participation in the case. Patient stated understanding and signed the consent form wishing to proceed. Review of Systems Review of Systems: All systems reviewed & are unremarkable except as noted in HPI and below PMFSH Past Medical History Medical History Cervical spine arthritis Chronic pain of left ankle DVT (deep venous thrombosis) (~2013) 2013 - LLE Dyslipidemia Eczema ankle Erectile dysfunction Essential (primary) hypertension History of blood clots History of colon polyps Hypertension Hypogonadism in male Medial meniscus, posterior horn derangement Osteoarthritis Right rotator cuff tear Type 2 diabetes mellitus without complication, without long-term current use of insulin Vitamin D deficiency Surgical History Surgical History H/O neck surgery History of cervical spinal surgery (~07/2023) C7 laminectomy and right C7-T1 foraminotomy, C6-T1 lateral mass instrumented fusion History of foot surgery (~2013) Left x3 2014 History of medial meniscus repair of right knee (~12/2020) 12/2020 Family History Family History Sibling Diabetes mellitus Mother Diabetes mellitus Hypertension Father Hypertension Other Arthritis High cholesterol Social History Social History Social History: Caffeine-coffee Smoking packs per day: 3 Smoking cigarettes per day: 60.0 Years smoked: 38 Smoking pack-years: 114.00 Smoking status: Former smoker Tobacco type: cigarettes Second hand tobacco smoke exposure: Yes Smoking end date: 10/12/03 Alcohol intake: never Alcohol use details: ONE DRINK PER MONTH Substance use: never Substance use type: does not use Lack of Transportation: No Lack of Food: Never True Current Housing: I Have Housing Concerned About Future Housing: No Difficulty Paying Gas/Electric Bills: No Difficulty Paying for Meds: No Currently Unemployed: No Education: Trade/Vocational Certificate Difficulty w/ Childcare or Family Care: No Living arrangements: with family 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/Education: occupation 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 Gender identity (if verbalized by the patient): Male Spiritual care concerns: No Agree to blood products: Yes Meds Home Medications and Allergies Home Medications ?Medication ?Instructions ?Recorded ?Confirmed ?Type lancets 30 gauge (OneTouch Delica #25 ea 11/16/19 08/29/24 History Lancets) acetaminophen [Tylenol] 650 mg PO PRN PRN Pain 11/29/20 11/24/24 History multivitamin 1 tablet PO DAILY 11/29/20 11/24/24 History naproxen sodium [Aleve] 220 mg PO PRN PRN Pain 11/29/20 11/24/24 History omega-3 fatty acids 1,000 mg 1,000 mg PO DAILY 11/29/20 11/24/24 History capsule (Fish Oil Concentrate) saw palmetto 1 tab-cap PO DAILY 11/29/20 11/24/24 History vitamin B complex (B 1 tablet PO DAILY 11/29/20 11/24/24 History Complex-Vitamin B12 tablet) blood sugar diagnostic #100 ea 04/30/21 08/29/24 Rx aspirin 81 mg tablet,delayed 81 mg PO DAILY 04/08/23 11/24/24 History release (Adult Aspirin Regimen) cholecalciferol (vitamin D3) 25 25 mcg PO DAILY 07/28/23 11/24/24 History mcg (1,000 unit) tablet fenofibrate 160 mg tablet 160 mg PO DAILY #90 tabs 08/29/24 11/24/24 Rx glipizide 10 mg tablet, extended 10 mg PO DAILY #90 tabs 08/29/24 11/24/24 Rx release 24 hr hydrochlorothiazide 25 mg tablet 25 mg PO DAILY #90 tabs 08/29/24 11/24/24 Rx lisinopril 40 mg tablet 40 mg PO DAILY #90 tabs 08/29/24 11/24/24 Rx metformin 500 mg tablet,extended 2,000 mg (4 x 500 mg) PO QPM #360 08/29/24 11/24/24 Rx release 24 hr tabs tramadol 50 mg tablet 50 mg PO BID PRN Pain #60 tabs 08/29/24 11/24/24 Rx Allergies Allergy/AdvReac Type Severity Reaction Status Date / Time No Known Allergies Allergy Verified 11/24/24 09:25 Exam Narrative: unchanged Assessment and Plan Assessment and plan (1) Ulnar neuropathy at elbow of right upper extremity: Code(s): G56.21 - Lesion of ulnar nerve, right upper limb Status: Acute Assessment and Plan: cont as above
--- NOTE | 2024-11-24 06:59 | W.PM.PROC2 ---
Procedure Note - Detailed Date of Procedure 11/24/24 Pre-op Diagnosis Right Cubital Tunnel Syndrome Post-op Diagnosis Same Procedure Performed right CuTR Surgeon Valentin Fernandez MD Inventory Associate melania boyle pa-c Anesthesia MAC Description of Procedure INFORMED CONSENT:The patient was seen and examined and marked in the pre-op area.? The patient signed the consent form. PROCEDURE IN DETAIL: The patient taken back to OR on the stretcher in supine position. Time out performed with anesthesia, surgeon and staff agreeing on patient's name site and surgery to be performed SCDs were placed on the lower extremities and inflated A tourniquet was placed on {right} upper extremity and antibiotics given IV After anesthesia administered sedation I injected {8}cc 1%lido with epi and 0.5% marcaine plain at the operative site The?{right upper extremity}?was prepped and draped in sterile fashion the??{right upper extremity} was??exsanguinated with Esmarch bandage and tourniquet inflated to 250mmHg I next proceeded with making a longitudinal incision between two heads for flexor carpi ulnaris at end of {right} cubital tunnel with 15 blade scalpel.? Littler scissors were used to spread down to FCU fascia.? An incision was made in FCU fascia and ulnar nerve identified exiting cubital tunnel.? I proceeded with complete retrograde release of the cubital tunnel including 7cm proximal for the intermuscular septum.? The nerve appeared healthy with visible vaso nervorum.? There was mild subluxation of the nerve on elbow range of motion so I constructed a flat of local tissue and used 3-0 vicryl to secure this. A freer was passed on top of the nerve under this tunnel and there was no subluxation or impingement with full elbow range of motion. ? I irrigated with normal saline and closure with 3-0 vicryl for dermis and 4-0 monocryl for subcuticular. The incision was covered with Dermabond then 4x4s, sho, and a posterior elbow splint for patient safety, security and comfort and secured with amparo bandages after the tourniquet was let down noting the hand was warm and well perfused.? Patient awaken from anesthesia and transferred to recovery in stable condition Complications - none EBL- 1cc Disposition - home in stable conditions Melania Boyle PA-C was essential for positioning, retraction, closure and dressing placement [facility] Billing Surgery - Charge Forward: Surgery Billing ([id number] for melania)
[2024-11-24 09:28] VITALS: BMI 29.3
--- OUTSIDE RECORDS SUMMARY | 2024-11-24 09:28 | XMS_ITS | Clinical Summary ---
Author Organization [employer] [facility] Address [address] [facility] Attn: Epic Prelude ADT [place] [address] Care Team Providers Care Balling Head Tender Name Role Phone Unavailable Primary Care Provider [...] on package. 21 Each 12/10/2022 8:12 AM MUSIC VIDEO PRODUCER 3 Active meloxicam (MOBIC) 15 mg tablet Take 1 Tablet (15 mg) by mouth daily. 30 Tablet 12/19/2022 2:56 PM MUSIC VIDEO PRODUCER 3 Active ALPRAZolam (XANAX) 0.5 mg tablet [...] meal. 360 Tablet 1 08/25/2024 11:52 AM MUSIC VIDEO PRODUCER 4 Active glipiZIDE (GLUCOTROL XL) 10 mg Extended Release 24 hour tablet Take 1 Tablet (10 mg) by mouth daily. 90 Tablet 1 08/30/2024 9:32 AM MUSIC VIDEO PRODUCER 4 Active fenofibrate (LOFIBRA) 160 mg Tablet Take 1 Tablet (160 mg) by mouth daily. 90 Tablet 1 08/30/2024 9:32 AM MUSIC VIDEO PRODUCER 4 Active lisinopriL (PRINIVIL) 40 mg tablet Take 1 Tablet (40 mg) by mouth daily. 90 Tablet 1 08/30/2024 9:32 AM MUSIC VIDEO PRODUCER 4 Active hydroCHLOROthi azide 25 mg tablet Take 1 Tablet (25 mg) by mouth daily. 90 Tablet 1 08/30/2024 9:32 AM MUSIC VIDEO PRODUCER 4 Active metFORMIN (GLUCOPHAGE XR) 500 mg Extended Release 24 hour tablet Take 4 Tablets (2,000 mg) by mouth daily with the evening meal. 360 Tablet 1 4 Active traMADoL (ULTRAM) 50 mg tablet Take 1 Tablet (50 mg) by mouth 2 times daily as needed for pain. 60 Tablet 10/19/2024 12:15 PM MUSIC VIDEO PRODUCER 4 Active Encounters Date Type Department Care [...]
--- OUTSIDE RECORDS SUMMARY | 2024-11-24 09:28 | XMS_ITS | Clinical Summary ---
Author Organization [facility] Address [address] [facility] [facility] [address] [place] [address] Phone Care Team Providers Care Program Proposals Coordinator Name Role Phone Kenton Roy MD Primary [...] Procedure Name Priority Date/Time Associated Diagnosis Comments HM COLONOSCOPY Routine 04/04/2021 from Last 3 Months or Most Recently Relevant to Health Maintenance Results * HM COLONOSCOPY (04/04/2021) Myke Chandrika Stacey DO PROCEDURE/MINOR SURGICAL ORDERA BLES Final Result from Last 3 Months or Most Recently Relevant to Health Maintenance Insurance Care Teams Program Proposals Coordinator Relationship Specialty Start Date End Date Kenton Roy MD PCP - General Family Medicine 02/11/21
[2024-11-24 09:29] VITALS: BP 141/97; PULSE 94; RESP 20; TEMP 36.5; O2SAT 100
[2024-11-24] MEDS: LACTATED RINGERS 1,000 ML 30 ML IV CONT (09:43)
--- NOTE | 2024-11-24 09:46 | WPDANESEPPF ---
Anes - Initial Pre Proc Eval Procedure: Operation Date: 11/24/24 10:45 Proposed Procedures p Right Cubital Tunnel Release - Valentin Fernandez MD Date/Time: 11/24/24 09:46 Surgeon: Valentin Fernandez MD Pre Op Diagnosis: Right Cubital Tunnel Syndrome Patient Data Age: 69 Gender: M Height: 1.88 m Weight: 103.7 kg Last Vital Signs Temp 36.5 C 11/24/24 09:29 Pulse 94 11/24/24 09:29 Resp 20 11/24/24 09:29 BP 141/97 H 11/24/24 09:29 Pulse Ox 100 11/24/24 09:29 O2 Del Method Room Air 11/24/24 09:29 Allergies Allergy/AdvReac Type Severity Reaction Status Date / Time No Known Allergies Allergy Verified 11/24/24 09:25 Home Medications ?Medication ?Instructions ?Recorded ?Confirmed ?Type lancets 30 gauge (OneTouch Delica #25 ea 11/16/19 08/29/24 History Lancets) acetaminophen [Tylenol] 650 mg PO PRN PRN Pain 11/29/20 11/24/24 History multivitamin 1 tablet PO DAILY 11/29/20 11/24/24 History naproxen sodium [Aleve] 220 mg PO PRN PRN Pain 11/29/20 11/24/24 History omega-3 fatty acids 1,000 mg 1,000 mg PO DAILY 11/29/20 11/24/24 History capsule (Fish Oil Concentrate) saw palmetto 1 tab-cap PO DAILY 11/29/20 11/24/24 History vitamin B complex (B 1 tablet PO DAILY 11/29/20 11/24/24 History Complex-Vitamin B12 tablet) blood sugar diagnostic #100 ea 04/30/21 08/29/24 Rx aspirin 81 mg tablet,delayed 81 mg PO DAILY 04/08/23 11/24/24 History release (Adult Aspirin Regimen) cholecalciferol (vitamin D3) 25 25 mcg PO DAILY 07/28/23 11/24/24 History mcg (1,000 unit) tablet fenofibrate 160 mg tablet 160 mg PO DAILY #90 tabs 08/29/24 11/24/24 Rx glipizide 10 mg tablet, extended 10 mg PO DAILY #90 tabs 08/29/24 11/24/24 Rx release 24 hr hydrochlorothiazide 25 mg tablet 25 mg PO DAILY #90 tabs 08/29/24 11/24/24 Rx lisinopril 40 mg tablet 40 mg PO DAILY #90 tabs 08/29/24 11/24/24 Rx metformin 500 mg tablet,extended 2,000 mg (4 x 500 mg) PO QPM #360 08/29/24 11/24/24 Rx release 24 hr tabs tramadol 50 mg tablet 50 mg PO BID PRN Pain #60 tabs 08/29/24 11/24/24 Rx Patient hx anesthesia problems: none Family hx anesthesia problems: none Results Review: All pre-operative results and documents have been reviewed as part of the pre-operative evaluation. [facility] Past Medical History Medical History Osteoarthritis Cervical spine arthritis Hypertension History of blood clots Right rotator cuff tear Vitamin D deficiency Hypogonadism in male History of colon polyps Medial meniscus, posterior horn derangement Eczema ankle DVT (deep venous thrombosis) (~2013) 2013 - LLE Erectile dysfunction Essential (primary) hypertension Chronic pain of left ankle Dyslipidemia Type 2 diabetes mellitus without complication, without long-term current use of insulin Surgical History Surgical History History of cervical spinal surgery (~07/2023) C7 laminectomy and right C7-T1 foraminotomy, C6-T1 lateral mass instrumented fusion H/O neck surgery History of medial meniscus repair of right knee (~12/2020) 12/2020 History of foot surgery (~2013) Left x3 2014 Family History Family History Sibling Diabetes mellitus Mother Diabetes mellitus Hypertension Father Hypertension Other Arthritis High cholesterol Social History Social History Social History: Caffeine-coffee Smoking packs per day: 3 Smoking cigarettes per day: 60.0 Years smoked: 38 Smoking pack-years: 114.00 Smoking status: Former smoker Tobacco type: cigarettes Second hand tobacco smoke exposure: Yes Smoking end date: 10/12/03 Alcohol intake: never Alcohol use details: ONE DRINK PER MONTH Substance use: never Substance use type: does not use Lack of Transportation: No Lack of Food: Never True Current Housing: I Have Housing Concerned About Future Housing: No Difficulty Paying Gas/Electric Bills: No Difficulty Paying for Meds: No Currently Unemployed: No Education: Trade/Vocational Certificate Difficulty w/ Childcare or Family Care: No Living arrangements: with family Occupation/Education: occupation 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 Gender identity (if verbalized by the patient): Male Spiritual care concerns: No Agree to blood products: Yes Anes - Eval Final PreProcedure Day of Procedure 11/24/24 09:46 Patient weight: overweight Heart: regular rate and rhythm Lungs: decreased breath sounds Airway: Mallampati scale class II Neurological: alert and oriented Last oral intake: >/= 8 hours ASA classification: III Emergent: no Anesthetic plan: proceed Anesthesia type and monitoring: general GIVS and standard monitoring Results Review: All pre-operative results and documents have been reviewed as part of the pre-operative evaluation. Informed Consent: The patient's anesthetic plan and its attendant risks and benefits were discussed with the patient/family/POA. Questions were solicited and answers provided to the satisfaction of the patient/family/POA.
[2024-11-24 09:47] LABS: Glucose Point of Care 172 mg/dl (65-105)
[2024-11-24] MEDS: ceFAZolin SODIUM 2 GM/20 ML SW SYRINGE IV PUSH (09:53)
[2024-11-24] MEDS: BUPivacaine HCL 0.5% PF 30 ML VIAL INFILTRATE (09:57)
[2024-11-24] MEDS: LIDO 1%/EPINEPHRINE 1:100,000 10 ML VIAL 4 ML INFILTRATE (10:09)
[2024-11-24 10:24] VITALS: BP 124/73; PULSE 88; RESP 15; O2SAT 95
[2024-11-24 10:34] VITALS: BP 117/69; PULSE 86; RESP 15; O2SAT 94
--- NOTE | 2024-11-24 10:35 | WPDANESPN ---
Anes - Prog Note Post-Op Date/Time: 11/24/24 10:35 Cardiovascular status: normal Respiratory status: normal Airway patency: baseline Mental status: baseline Post-Op hydration status: normal Vital Signs: Last Vital Signs Temp 36.5 C 11/24/24 09:29 Pulse 88 11/24/24 10:24 Resp 15 11/24/24 10:24 BP 124/73 11/24/24 10:24 Pulse Ox 95 11/24/24 10:24 O2 Del Method Room Air 11/24/24 10:24 Pain Score (VAS): 0 11/24/24 09:42 POC Capillary Glucose 172 H Patient Feedback: Patient satisfied with anesthetic care.
[2024-11-24 10:44] VITALS: BP 130/74; PULSE 87; RESP 14; O2SAT 93
[2024-11-24 10:54] VITALS: BP 155/82; PULSE 81; RESP 16; O2SAT 95
== END 2024-11-24 11:16 ==
LOC: ASC 09:12
PROVIDERS: PCP Family Medicine; Visit Provider Plastic Surgery
PROC: (CPT 64718; principal; 2024-11-24 10:45)
DX: G56.21 Lesion of ulnar nerve, right upper limb (principal)
CPT/HCPCS: 64718; 29848

== ENCOUNTER 2024-12-23 11:30 | Emergency (ER) | payer MEDICARE, SELFPAY ==
--- NOTE | ~2024-12-23 | XR_ITS ---
XR shoulder LT min 2V Ordering provider: Greg Martinez MD History: . shoulder pain x 7 days; recent surgery . Comparison: None. FINDINGS: BONES: No acute fracture or dislocation. JOINT SPACES: The acromioclavicular joint is normal. The glenohumeral joint is normal. SOFT TISSUES: Normal. IMPRESSION: No acute osseous abnormality left shoulder. Reviewed, dictated and finalized at location A.
[2024-12-23 11:37] VITALS: BP 169/94; PULSE 88; RESP 16; TEMP 36.6; O2SAT 97
--- OUTSIDE RECORDS SUMMARY | 2024-12-23 12:12 | XMS_ITS | Clinical Summary ---
Author Organization [facility] Address [address] [facility] [facility] [address] [place] [address] Phone Care Team Providers Care High School Agriculture Teacher Name Role Phone Kenton Roy MD Primary [...] Relevant to Health Maintenance Insurance Care Teams High School Agriculture Teacher Relationship Specialty Start Date End Date Kenton Roy MD PCP - General Family Medicine 02/11/21
--- OUTSIDE RECORDS SUMMARY | 2024-12-23 12:12 | XMS_ITS | Clinical Summary ---
Author Organization [employer] [facility] Address [address] [facility] Attn: Epic Prelude ADT GISELE [place]OR[place]ITZ [address] Care Team Providers Care Upholstery Repairer Name Role Phone Unavailable Primary Care Provider [...] on package. 21 Each 12/10/2022 8:12 AM PAVER LAYER 3 Active meloxicam (MOBIC) 15 mg tablet Take 1 Tablet (15 mg) by mouth daily. 30 Tablet 12/19/2022 2:56 PM PAVER LAYER 3 Active ALPRAZolam (XANAX) 0.5 mg tablet [...] meal. 360 Tablet 1 08/25/2024 11:52 AM PAVER LAYER 4 Active glipiZIDE (GLUCOTROL XL) 10 mg Extended Release 24 hour tablet Take 1 Tablet (10 mg) by mouth daily. 90 Tablet 1 12/16/2024 4:50 PM PAVER LAYER 4 Active fenofibrate (LOFIBRA) 160 mg Tablet Take 1 Tablet (160 mg) by mouth daily. 90 Tablet 1 12/16/2024 4:50 PM PAVER LAYER 4 Active lisinopriL (PRINIVIL) 40 mg tablet Take 1 Tablet (40 mg) by mouth daily. 90 Tablet 1 12/16/2024 4:50 PM PAVER LAYER 4 Active hydroCHLOROthi azide 25 mg tablet Take 1 Tablet (25 mg) by mouth daily. 90 Tablet 1 12/16/2024 4:50 PM PAVER LAYER 4 Active metFORMIN (GLUCOPHAGE XR) 500 mg Extended Release 24 hour tablet Take 4 Tablets (2,000 mg) by mouth daily with the evening meal. 360 Tablet 1 12/16/2024 4:50 PM PAVER LAYER 4 Active traMADoL (ULTRAM) 50 mg tablet Take 1 Tablet (50 mg) by mouth 2 times daily as needed for pain. 60 Tablet 10/19/2024 12:15 PM PAVER LAYER 4 Active Encounters Date Type Department Care [...] Colonography Q 5 years 2000 PNEUMOCOCCAL VACCINE 50+ YEARS (1 of 1 - PCV) 03/05/20 [...]
--- OUTSIDE RECORDS SUMMARY | 2024-12-23 14:40 | XMS_ITS | Clinical Summary ---
Author Organization [facility] Address [address] [facility] [facility] [address] [place] [address] Phone Care Team Providers Care Camp Manager Name Role Phone Kenton Roy MD Primary [...] Relevant to Health Maintenance Insurance Care Teams Camp Manager Relationship Specialty Start Date End Date Kenton Roy MD PCP - General Family Medicine 02/11/21
--- OUTSIDE RECORDS SUMMARY | 2024-12-23 14:40 | XMS_ITS | Clinical Summary ---
Author Organization [employer] [facility] Address [address] [facility] Attn: Epic Prelude ADT GISELE [place] [address] Care Team Providers Care Hogshead Stock Clerk Name Role Phone Unavailable Primary Care Provider [...] on package. 21 Each 12/10/2022 8:12 AM CHIEF WHEELAGE CLERK 3 Active meloxicam (MOBIC) 15 mg tablet Take 1 Tablet (15 mg) by mouth daily. 30 Tablet 12/19/2022 2:56 PM CHIEF WHEELAGE CLERK 3 Active ALPRAZolam (XANAX) 0.5 mg tablet [...] meal. 360 Tablet 1 08/25/2024 11:52 AM CHIEF WHEELAGE CLERK 4 Active glipiZIDE (GLUCOTROL XL) 10 mg Extended Release 24 hour tablet Take 1 Tablet (10 mg) by mouth daily. 90 Tablet 1 12/16/2024 4:50 PM CHIEF WHEELAGE CLERK 4 Active fenofibrate (LOFIBRA) 160 mg Tablet Take 1 Tablet (160 mg) by mouth daily. 90 Tablet 1 12/16/2024 4:50 PM CHIEF WHEELAGE CLERK 4 Active lisinopriL (PRINIVIL) 40 mg tablet Take 1 Tablet (40 mg) by mouth daily. 90 Tablet 1 12/16/2024 4:50 PM CHIEF WHEELAGE CLERK 4 Active hydroCHLOROthi azide 25 mg tablet Take 1 Tablet (25 mg) by mouth daily. 90 Tablet 1 12/16/2024 4:50 PM CHIEF WHEELAGE CLERK 4 Active metFORMIN (GLUCOPHAGE XR) 500 mg Extended Release 24 hour tablet Take 4 Tablets (2,000 mg) by mouth daily with the evening meal. 360 Tablet 1 12/16/2024 4:50 PM CHIEF WHEELAGE CLERK 4 Active traMADoL (ULTRAM) 50 mg tablet Take 1 Tablet (50 mg) by mouth 2 times daily as needed for pain. 60 Tablet 10/19/2024 12:15 PM CHIEF WHEELAGE CLERK 4 Active Encounters Date Type Department Care [...]
[2024-12-23] MEDS: oxyCODONE HCL (*CRX) 5 MG TAB IR PO (15:32)
[2024-12-23] MEDS: KETOROLAC 30 MG/ML VIAL (*BKC) IM (15:33)
--- NOTE | 2024-12-23 16:10 | ED_ITS ---
HPI - Extremity Problem General Chief complaint: Extremity Problem,Nontraumatic Stated complaint: L. shoulder pain, appt. for pain clinic thursday Time Seen by Provider: 12/23/24 14:12 History of Present Illness HPI Narrative: 69-year-old male with a past medical history including cervical radiculopathy and multiple surgical procedures into his right upper extremity for osteoarthritis and cervical stenosis. Patient states that he has a pain management appointment on Thursday for injections into his neck and left shoulder for pain control. He has been having developing left shoulder pain for last 10 days that feels exactly the same as the last time he had a radiculopathy affecting his right shoulder. He tried calling his pain specialist and was only able to get up to Thursday but for his appointment and they could not cm this weekend. He states he has been taking Tylenol, ibuprofen and tramadol home without any relief. Denies any injury or trauma. No neuropathy, no weakness in the limb. No chest pain shortness a breath. He was otherwise in his normal state of health. Patient is requesting pain control for the weekend to get him to his appointment. Related Data Home Medications ?Medication ?Instructions ?Recorded ?Confirmed ?Last Taken ?Type lancets 30 gauge (OneTouch Delica #25 ea 11/16/19 08/29/24 04/03/21 History Lancets) acetaminophen [Tylenol] 650 mg PO PRN PRN Pain 11/29/20 11/24/24 11/13/24 History multivitamin 1 tablet PO DAILY 11/29/20 11/24/24 11/19/24 History naproxen sodium [Aleve] 220 mg PO PRN PRN Pain 11/29/20 11/24/24 11/19/24 History omega-3 fatty acids 1,000 mg 1,000 mg PO DAILY 11/29/20 11/24/24 11/19/24 History capsule (Fish Oil Concentrate) saw palmetto 1 tab-cap PO DAILY 11/29/20 11/24/24 11/19/24 History vitamin B complex (B 1 tablet PO DAILY 11/29/20 11/24/24 11/19/24 History Complex-Vitamin B12 tablet) aspirin 81 mg tablet,delayed 81 mg PO DAILY 04/08/23 11/24/24 11/23/24 History release (Adult Aspirin Regimen) cholecalciferol (vitamin D3) 25 25 mcg PO DAILY 07/28/23 11/24/24 11/17/24 History mcg (1,000 unit) tablet Allergies Allergy/AdvReac Type Severity Reaction Status Date / Time No Known Allergies Allergy Verified 12/23/24 11:32 Review of Systems Review of Systems: As reviewed above in HPI [facility] Past Medical History Medical History Osteoarthritis Cervical spine arthritis Hypertension History of blood clots Right rotator cuff tear Vitamin D deficiency Hypogonadism in male History of colon polyps Medial meniscus, posterior horn derangement Eczema ankle DVT (deep venous thrombosis) (~2013) 2014 - LLE Erectile dysfunction Essential (primary) hypertension Chronic pain of left ankle Dyslipidemia Type 2 diabetes mellitus without complication, without long-term current use of insulin Surgical History Surgical History History of cervical spinal surgery (~07/2023) C7 laminectomy and right C7-T1 foraminotomy, C6-T1 lateral mass instrumented fusion H/O neck surgery History of medial meniscus repair of right knee (~12/2020) 12/2020 History of foot surgery (~2013) Left x3 2014 Family History Family History Sibling Diabetes mellitus Mother Diabetes mellitus Hypertension Father Hypertension Other Arthritis High cholesterol Social History Social History Social History: Caffeine-coffee Smoking packs per day: 3 Smoking cigarettes per day: 60.0 Years smoked: 38 Smoking pack-years: 114.00 Smoking status: Former smoker Tobacco type: cigarettes Second hand tobacco smoke exposure: Yes Smoking end date: 10/12/03 Alcohol intake: never Alcohol use details: ONE DRINK PER MONTH Substance use: never Substance use type: does not use Lack of Transportation: No Lack of Food: Never True Current Housing: I Have Housing Concerned About Future Housing: No Difficulty Paying Gas/Electric Bills: No Difficulty Paying for Meds: No Currently Unemployed: No Education: Trade/Vocational Certificate Difficulty w/ Childcare or Family Care: No Living arrangements: with family Occupation/Education: occupation 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 Mucous membranes moist. NECK: Supple. CHEST: [Clear to auscultation. No respiratory distress.] HEART: [Regular rate and rhythm]. No murmur heard. [Normal peripheral pulses.] ABDOMEN: [Soft, nondistended], [nontender], [No rigidity or guarding] EXTREMITIES: Normal range of motion. [No edema.] Full passive and active range of motion, tenderness reproducible over the left shoulder posterior AC, no step- offs deformities. No midline cervical thoracic or lumbar spinal tenderness. Negative Spurling's test. Assistant Professor Of Music strength 5/5, full range of motion of the shoulder, elbow and wrist. SKIN: Warm, dry, no rash. NEURO: [No focal deficits]. Alert and oriented [x3.] PSYCH: [Normal mood and affect.] Course Vital Signs Vital signs: Vital Signs Temperature 36.6 C 12/23/24 11:37 Pulse Rate 88 12/23/24 11:37 Respiratory Rate 16 12/23/24 11:37 Blood Pressure 169/94 H 12/23/24 11:37 Pulse Oximetry 97 12/23/24 11:37 Oxygen Delivery Room Air 12/23/24 11:37 Temperature 36.6 C 12/23/24 11:37 Pulse Rate 88 12/23/24 11:37 Respiratory Rate 16 12/23/24 11:37 Blood Pressure 169/94 H 12/23/24 11:37 Pulse Oximetry 97 12/23/24 11:37 Oxygen Delivery Room Air 12/23/24 11:37 MDM - Extremity (Nontraumatic) MDM Narrative Medical decision making narrative: 69-year-old male with cervical radiculopathy and right upper extremity surgeries presents the emergency department for left shoulder pain for last 10 days. He states it feels exactly like time he was diagnosed with cervical radiculopathy and has a pain management appointment on Thursday for spinal injections and shoulder injection. Patient denies any trauma or injury. He has an unremarkable physical examination with some mild tenderness over the posterior aspect of the left AC joint but no step-offs deformities. Full range of motion of the shoulder, elbow and wrist. Assistant Professor Of Music strength full without any neuropathy. Normal vital signs and 2+ radial pulses. X-rays left shoulder obtained and patient was given oxycodone and Toradol for analgesia. Given patient is in acute pain and has a pain management appointment on Thursday I did offer him a short course of pain control medications to get him through the weekend. Patient was appreciative of this and he was safe for discharge upon negative x- ray. Discharge Plan Discharge Clinical Impression: Left shoulder pain, Cervical radiculopathy Patient Disposition: Home, Self-Care Condition: Stable Instructions: Antibiotic Form Additional Instructions: Your x-ray shows no injury. Follow-up with your paint line operator on Thursday. We will send you home with a short course of pain control medications. Return with any new or worsening concerns at any time. Patient Language: Hebrew Prescriptions: New lidocaine 5 % adhesive patch,medicated 1 patch topical DAILY Qty: 15 0RF Rx Instructions: leave on most painful area for up to 12 hrs oxycodone 5 mg tablet 5 mg PO Q8H PRN (Reason: pain) Qty: 10 0RF methocarbamol 500 mg tablet 500 mg PO HS Qty: 7 0RF No Action omega-3 fatty acids [Fish Oil Concentrate] 1,000 mg capsule 1,000 mg PO DAILY vitamin B complex [B Complex-Vitamin B12] Tablet 1 tablet PO DAILY multivitamin Tablet 1 tablet PO DAILY Patient Comments: per patient home medication list provided 11/29/20 olvin limon 1 tab-cap PO DAILY naproxen sodium [Aleve] 220 mg PO PRN PRN (Reason: Pain) Patient Comments: per patient home medication list provided 11/29/20 acetaminophen [Tylenol] 650 mg PO PRN PRN (Reason: Pain) fenofibrate 160 mg tablet 160 mg PO DAILY Qty: 90 1RF Rx Instructions: TAKE 1 TABLET BY ORAL ROUTE EVERY DAY glipizide 10 mg tablet extended release 24hr 10 mg PO DAILY Qty: 90 1RF hydrochlorothiazide 25 mg tablet 25 mg PO DAILY Qty: 90 1RF lisinopril 40 mg tablet 40 mg PO DAILY Qty: 90 1RF metformin 500 mg tablet extended release 24 hr 2,000 mg PO QPM Qty: 360 1RF Rx Instructions: TAKE 4 TABLET BY ORAL ROUTE EVERY DAY WITH THE EVENING MEAL tramadol 50 mg tablet 50 mg PO BID PRN (Reason: Pain) Qty: 60 0RF cholecalciferol (vitamin D3) 25 mcg (1,000 unit) Tablet 25 mcg PO DAILY aspirin [Adult Aspirin Regimen] 81 mg Tablet,Delayed Release (Dr/Ec) 81 mg PO DAILY (DME) lancets [OneTouch Delica Lancets] 30 gauge misc See Rx Instructions .ROUTE .MEDSUPPLY Qty: 25 Rx Instructions: As directed (DME) blood sugar diagnostic Strip See Rx Instructions .ROUTE .MEDSUPPLY Qty: 100 1RF Rx Instructions: check sugars qdaily As directed Follow-up/Referrals: Romy Roy MD [Primary Care Provider] - Time of Disposition: 16:16
[2024-12-23 16:30] VITALS: BP 147/86; PULSE 78; RESP 20; O2SAT 95
== END 2024-12-23 16:31 | disposition home or self-care (01) ==
PROVIDERS: Emergency Provider Student in an Organized Health Care Education/Training Program; PCP Family Medicine
DX: M47.812 Spondylosis without myelopathy or radiculopathy, cervical region (principal); M25.512 Pain in left shoulder; Z79.82 Long term (current) use of aspirin; E55.9 Vitamin D deficiency, unspecified; Z86.718 Personal history of other venous thrombosis and embolism; I10 Essential (primary) hypertension; E11.9 Type 2 diabetes mellitus without complications; E78.49 Other hyperlipidemia; Z87.891 Personal history of nicotine dependence
CPT/HCPCS: 73030; 96372; 99283; A9270; J1885

== ENCOUNTER 2025-01-05 08:04 | Outpatient (CLI) | payer MEDICARE, SELFPAY ==
--- NOTE | ~2025-01-05 | XR_ITS ---
EXAMINATION: XR cervical spine 4-5V DATE: 01/05/2025 08:21 INDICATION: Arthrodesis status. TECHNIQUE: 7 views of the cervical spine including flexion and extension views were obtained. COMPARISON: Cervical spine radiographs 09/14/2023 FINDINGS: There is kyphosis of lower cervical spine. There are changes of posterior fusion procedure from C6 to T1 with lateral mass screws in C6 and pedicle screws in T1. There is no abnormal motion on flexion or extension. Vertebral body heights are normal. There is mildly decreased disc height at C5 -C6 and severely decreased disc height at C6-C7. There is multilevel mild to moderate facet joint ost eoarthritis. No central canal stenosis or prevertebral soft tissue swelling. IMPRESSION: 1. Posterior fusion procedure from C6 to T1. 2. Severe cervical spondylosis. Reviewed, dictated and finalized at location A.
--- NOTE | ~2025-01-05 | MR_ITS ---
EXAMINATION: MR cervical spine wo con DATE: 01/05/2025 08:49 INDICATION: Cervical arthrodesis status. TECHNIQUE: Magnetic resonance imaging (MRI) of the cervical spine was performed without intravenous c ontrast. Sequences included sagittal T2-weighted FSE, sagittal T2-weighted FS FSE, sagittal T1-weight ed FSE, axial MERGE and axial T2-weighted FSE. COMPARISON: Radiographs dated 01/05/2025 and MRI dated FINDINGS: Interval postoperative changes at the cervicothoracic junction. This includes a C7 laminectomy and C6 -T1 posterior spinal fusion with bilateral vertical kuldeep with lateral mass screws at C6 and pedicle sc rews at T1. Unchanged 2 mm anterolisthesis C7 on T1. Moderate osteoarthritis at the atlantoaxial ximena culation. Vertebral body heights are normal. Bone marrow signal intensity is normal. Severe disc he ight loss with moderate sized anterior endplate osteophytes at C6-C7. Mild disc height loss at C4-C5 and C5-C6. Cord signal intensity is normal. The following disc levels are specifically discussed: C2-C3: The disc does not extend beyond the endplate margin. There is mild bilateral uncovertebral anand nt osteoarthritis. There is mild to moderate bilateral facet joint osteoarthritis. There is minimal b ilateral neural foraminal stenosis. There is no central canal stenosis. C3-C4: The disc does not extend beyond the endplate margin. There is mild right and moderate left unc overtebral joint osteoarthritis. There is moderate right and severe left facet joint osteoarthritis. There is moderate right and severe left neural foraminal stenosis. There is no central canal stenosis . C4-C5: Disc osteophyte complex which mildly indents the right ventral surface of the cord. There is m oderate bilateral uncovertebral joint osteoarthritis. There is moderate bilateral facet joint osteoar thritis. There is moderate bilateral neural foraminal stenosis. There is mild central canal stenosis. C5-C6: Disc osteophyte complex which indents the right ventral surface of the cord. There is moderate bilateral uncovertebral joint osteoarthritis. There is moderate bilateral facet joint osteoarthritis . There is moderate left and moderate to severe right neural foraminal stenosis. There is mild centra l canal stenosis. C6-C7: Mild disc bulge. There is severe bilateral uncovertebral joint osteoarthritis. The facet joint s are obscured by magnetic field artifact related to the instrumented posterior spinal fusion. There is mild bilateral neural foraminal stenosis. There is mild central canal stenosis. C7-T1: Disc is bulging with annular fissure. There is mild bilateral uncovertebral joint osteoarthrit is. Lateral facet joints are obscured. Magnetic field artifact related to the isthmus posterior spina l fusion. There is mild left and mild to moderate right neural foraminal stenosis. There is mild cent ral canal stenosis. T1-T2: Disc is bulging with superimposed left subarticular zone annular fissure and new disc extrusion with disc material extending up to 9 mm cephalad to the level of the inferior endplate of T1 and which lopez rows the left lateral recess mildly indenting the left ventral surface of the cord. There is mild rig ht and moderate left facet osteoarthritis. There is moderate bilateral neural foraminal stenosis. The re is mild central canal stenosis. IMPRESSION: 1. Cervical spondylosis, severe at C6-C7 and mild remainder of the cervical spine with interval posto perative change of C7 laminectomies and C5-T1 instrumented posterior spinal fusion. 2. Annular fissure and new moderate-sized left subarticular zone disc extrusion at T1-T2 which signif icantly narrows the left lateral recess at this level. Reviewed, dictated and finalized at location B. IMPRESSION: 1. Cervical spondylosis, severe at C6-C7 and mild remainder of the cervical spi ne with interval postoperative change of C7 laminectomies and C5-T1 instrumente d posterior spinal fusion. 2. Annular fissure and new moderate-sized left subarticular zone disc extrusion at T1-T2 which significantly narrows the left lateral recess at this level.
== END 2025-01-05 08:05 | disposition home or self-care (01) ==
LOC: GOSHIMG 08:04
PROVIDERS: PCP Family Medicine; Visit Provider Nurse Practitioner Adult Health
DX: M47.812 Spondylosis without myelopathy or radiculopathy, cervical region (principal); M48.02 Spinal stenosis, cervical region; Z98.1 Arthrodesis status; M51.84 Other intervertebral disc disorders, thoracic region
CPT/HCPCS: 72050; 72141

== ENCOUNTER 2025-02-28 10:18 | Outpatient (CLI) | payer MEDICARE, SELFPAY ==
--- OUTSIDE RECORDS SUMMARY | 2025-02-28 10:32 | XMS_ITS | Clinical Summary ---
Author Organization [facility] Address [address] Attn: Epic Prelude ADT GISELE HOROWITZ [address] Care Team Providers Care Mortar Mixer Name Role Phone Unavailable Primary Care Provider Unavailabl e Medications testosterone cypionate (DEPO-TESTOSTE DEENA) 200 mg/mL Oil Inject 1 mL (200 mg) by intramuscular injection every 30 days. 3 mL 1 02/18/20 22 Active testosterone cypionate (DEPO-TESTOSTE DEENA) 200 mg/mL Oil Inject 1 mL (200 mg) by intramuscular injection every 30 days. 3 mL 1 2 10:18 AM CDT 03/31/20 22 Active methylPREDNISo lone (MEDROL DOSPACK) 4 mg Tablets, Dose Pack Take as directed on package. 21 Each 3 8:12 AM APPLIANCE LINE ASSEMBLER 12/09/19 23 Active meloxicam (MOBIC) 15 mg tablet Take 1 Tablet (15 mg) by mouth daily. 30 Tablet 3 2:56 PM APPLIANCE LINE ASSEMBLER 12/19/19 23 Active ALPRAZolam (XANAX) 0.5 mg tablet Take 1 tablet by mouth 1 hour prior to MRI procedure. DO NOT DRIVE FOR THE REMAINDER OF THAT DAY. 1 Tablet 3 10:41 AM CDT 01/22/20 23 Active traMADoL (ULTRAM) 50 mg tablet Take 1 Tablet (50 mg) by mouth 3 times daily as needed for pain. 60 Tablet 3 9:58 AM CDT 02/03/20 23 Active hydroCHLOROthi azide 25 mg tablet Take 1 Tablet (25 mg) by mouth daily. 90 Tablet 1 02/12/20 23 Active gabapentin (Neurontin) 300 mg capsule Take 1-2 cap(s) by mouth at bedtime as needed 60 Capsule 3 5:03 PM CDT 02/13/20 23 Active methylPREDNISo lone (MEDROL DOSPACK) 4 mg Tablets, Dose Pack Take as directed on package. 21 Each 3 9:53 AM CDT 05/04/20 23 Active cyclobenzaprin e (FLEXERIL) 10 mg tablet Take 1 Tablet (10 mg) by mouth 3 times daily as needed for muscle spasms. 30 Tablet 3 4:18 PM CDT 08/05/20 23 Active HYDROcodone-ac etaminophen (NORCO) 5-325 mg tablet Take 1 Tablet by mouth every 4 hours as needed for mild pain (1-3) for 7 days. 42 Tablet 3 4:18 PM CDT 08/05/20 23 Active sennosides-doc usate sodium (SENNA-S) 8.6-50 mg tablet Take 1 Tablet by mouth at bedtime as needed for constipation. 14 Tablet 3 4:18 PM CDT 08/05/20 23 Active meloxicam (MOBIC) 7.5 mg tablet Take 1 Tablet (7.5 mg) by mouth daily. 30 Tablet 1 4 12:08 PM CDT 04/18/20 24 Active metFORMIN (GLUCOPHAGE XR) 500 mg Extended Release 24 hour tablet Take 4 Tablets (2,000 mg) by mouth every day with the evening meal. 360 Tablet 1 4 11:52 AM APPLIANCE LINE ASSEMBLER 08/25/20 24 Active glipiZIDE (GLUCOTROL XL) 10 mg Extended Release 24 hour tablet Take 1 Tablet (10 mg) by mouth daily. 90 Tablet 1 5 4:50 PM APPLIANCE LINE ASSEMBLER 08/29/20 24 Active fenofibrate (LOFIBRA) 160 mg Tablet Take 1 Tablet (160 mg) by mouth daily. 90 Tablet 1 5 4:50 PM APPLIANCE LINE ASSEMBLER 08/29/20 24 Active lisinopriL (PRINIVIL) 40 mg tablet Take 1 Tablet (40 mg) by mouth daily. 90 Tablet 1 5 4:50 PM APPLIANCE LINE ASSEMBLER 08/29/20 24 Active hydroCHLOROthi azide 25 mg tablet Take 1 Tablet (25 mg) by mouth daily. 90 Tablet 1 5 4:50 PM APPLIANCE LINE ASSEMBLER 08/29/20 24 Active metFORMIN (GLUCOPHAGE XR) 500 mg Extended Release 24 hour tablet Take 4 Tablets (2,000 mg) by mouth daily with the evening meal. 360 Tablet 1 5 4:50 PM APPLIANCE LINE ASSEMBLER 08/29/20 24 Active traMADoL (ULTRAM) 50 mg tablet Take 1 Tablet (50 mg) by mouth 2 times daily as needed for pain. 60 Tablet 5 12:15 PM APPLIANCE LINE ASSEMBLER 08/29/20 24 Active methocarbamoL (ROBAXIN) 500 mg tablet Take 1 tablet by mouth at bedtime 7 Tablet 5 6:13 PM CDT 12/24/19 25 Active lidocaine (LIDODERM) 5 % Adhesive Patch, Medicated Apply 1 patch on most painful area once daily for up to 12 hours. Remove for 12 hours. 15 Patch 5 6:13 PM CDT 12/24/19 25 Active oxyCODONE (ROXICODONE) 5 mg tablet Take 1 tablet by mouth every 8 hours As Needed for pain 10 Tablet 5 6:13 PM CDT 12/23/19 25 Active methylPREDNISo lone (Medrol, Bert,) 4 mg Tablets, Dose Pack Take as directed on package 21 Tablet 5 11:00 AM CDT 12/28/19 25 Active traMADol (ULTRAM) 50 mg tablet Take 1 Tablet (50 mg) by mouth 2 times daily as needed for pain. 60 Tablet 5 10:58 AM CDT 02/04/20 25 Active gabapentin (NEURONTIN) 300 mg capsule Take 1 Capsule (300 mg) by mouth 3 times daily as needed for back pain. 270 Capsule 1 02/28/20 25 Active simvastatin (ZOCOR) 10 mg tablet Take 1 Tablet (10 mg) by mouth daily at bedtime. 90 Tablet 2 02/28/20 25 Active traMADoL (ULTRAM) 50 mg tablet Take 1 Tablet (50 mg) by mouth 2 times daily as needed for pain. 60 Tablet 5 3:40 PM CDT 12/29/19 25 025 Discontinue d(Reorder) meloxicam (MOBIC) 15 mg tablet Take 1 Tablet (15 mg) by mouth daily. 30 Tablet 1 5 4:34 PM CDT 01/03/20 25 025 Discontinue d(Told by provider to stop) gabapentin (NEURONTIN) 300 mg capsule Take 1 Capsule (300 mg) by mouth daily at bedtime. 90 Capsule 1 5 4:38 PM CDT 01/10/20 25 025 Discontinue d(Told by provider to stop) Encounters Date Type Department Care Team Description 02/21/2025 External Device Data STL ABSTRACTION Provider, Abstract [...]
--- OUTSIDE RECORDS SUMMARY | 2025-02-28 10:32 | XMS_ITS | Clinical Summary ---
Author Organization [facility] Address [address] [facility] [address] [place] [address] Phone Care Team Providers Care Certified Lactation Educator Name Role Phone Kenton Roy MD Primary [...] Relevant to Health Maintenance Insurance Care Teams Certified Lactation Educator Relationship Specialty Start Date End Date Kenton Roy MD PCP - General Family Medicine 02/11/21
[2025-02-28 13:30] LABS: Alanine Aminotransferase 26 U/L (6-50); Alkaline Phosphatase 25 U/L (38-126); Anion Gap 10 mmol/L (4-12); Aspartate Amino Transferase 40 U/L (17-59); Bilirubin,Total 0.8 mg/dL (0.2-1.3); Blood Urea Nitrogen 23 mg/dL (9-20); Calcium 9.7 mg/dL (8.4-10.2); Carbon Dioxide 28 mmol/L (22-30); Chloride 101 mmol/L (98-107); Estimated Glomerular Filt Rate > 60; Glucose 113 mg/dL (65-110); Potassium 4.1 mmol/L (3.4-5.0); Sodium 139 mmol/L (137-145)
[2025-02-28 13:50] LABS: Creatinine Urine 116.5 mg/dL
[2025-02-28 13:57] LABS: MALB Creatinine Ratio 6.4 mg/g (0-30); Microalbumin Urine Random 7.4 mg/L (0-16.7)
[2025-02-28 14:50] LABS: Hemoglobin A1C 6.2 % (<5.7)
== END 2025-02-28 10:19 | disposition home or self-care (01) ==
LOC: ANHGOSHLAB 10:19
PROVIDERS: PCP Family Medicine; Visit Provider Family Medicine
DX: E11.9 Type 2 diabetes mellitus without complications (principal); I10 Essential (primary) hypertension
CPT/HCPCS: 36415; 80053; 82043; 83036

== ENCOUNTER 2025-03-21 06:33 | Outpatient (CLI) | payer MEDICARE, SELFPAY ==
--- NOTE | ~2025-03-21 | US_ITS ---
Procedure: Duplex Doppler examination of the bilateral carotids. Indication: Paresthesia scan Technique: Real time, color-flow and pulse wave Doppler examination of the bilateral carotids was performed. Findings: Crocker scale ultrasonography of the right neck demonstrated no significant plaque. There was demonstrat ion of normal color-flow and Doppler waveforms within the right common, internal and external carotid arteries. The peak systolic velocities in the right common, internal and external carotid arteries w ere demonstrated to be 91 cm/sec, 63 cm/sec and 95 cm/sec respectively. The right ICA/CCA ratio was 0 .7.The proximal right internal carotid artery demonstrates 0% stenosis relative to the normal distal artery lumen diameter. Crocker scale sonography of the left neck demonstrated no significant plaque. There was demonstration of normal color-flow and wave forms within the left common, internal and external carotid arteries. The peak systolic velocities in the left common, internal and external carotid arteries were demonstrate d to be 91cm/sec, 82 cm/sec and 78 cm/sec respectively. The left ICA/CCA ratio was 0.9. The proximal left internal carotid artery demonstrates 0% stenosis relative to the normal distal artery lumen diam eter. There was antegrade flow demonstrated in the bilateral vertebral arteries. Impression: No hemodynamically significant stenosis of the bilateral internal carotid arteries. Antegrade flow in the bilateral vertebral arteries. Note: The methodology used is an indirect measurement validated against a direct method (such as the NASCET criteria) that compares diameters at the stenosis to the distal ICA. Reviewed, dictated and finalized at location . Impression: No hemodynamically significant stenosis of the bilateral internal carotid arter ies. Antegrade flow in the bilateral vertebral arteries. Note: The methodology used is an indirect measurement validated against a direct meth od (such as the NASCET criteria) that compares diameters at the stenosis to the distal ICA.
--- NOTE | ~2025-03-21 | MR_ITS ---
MRI of the brain Clinical History: Anesthesia of skin Technique: Axial and sagittal T1-weighted images were acquired. These were followed by axial T2-weigh rizwan, diffusion weighted, gradient, and FLAIR images. Findings: There is no acute infarct, internal hemorrhage or mass lesion. There is mild chronic microv ascular ischemic change in the periventricular white matter bilaterally. Ventricles and subarachnoid spaces are minimally dilated. Orbits are unremarkable. Paranasal sinuses and mastoid air cells are clear. Major intracranial flow voids are intact. Sagittal midline structures are intact. IMPRESSION: No acute infarct, intracranial hemorrhage, or mass lesion. Mild chronic microvascular ischemic change. Reviewed, dictated and finalized at [facility].
--- OUTSIDE RECORDS SUMMARY | 2025-03-21 06:39 | XMS_ITS | Continuity of Care Document ---
Author Organization [employer] [facility] Address [address] [place] [address] Phone Care Team Providers Care Sign Language Teacher Name Role Phone Ramana PT,MPT,ATC, Humble Unavailable Unavai lable Procedures Procedure Date Progress Note Therapeutic Activities Neuromuscular Re-Ed Therapeutic Activities Neuromuscular Re-Ed Therapeutic Activities Neuromuscular Re-Ed Therapeutic Activities Neuromuscular Re-Ed Therapeutic Exercise Therapeutic Activities Neuromuscular Re-Ed Therapeutic Exercise Therapeutic Activities Neuromuscular Re-Ed PT Evaluation Moderate Complexity Therapeutic Activities Neuromuscular Re-Ed PT RE-EVALUATION THERAPEUTIC EXERCISES NEUROMUSCULAR RE-ED MANUAL THERAPY FUNC ACTIVITY 15 MIN HOT/COLD PACK ELECTRIC STIMULATION UNATT THERAPEUTIC EXERCISES NEUROMUSCULAR RE-ED MANUAL THERAPY FUNC ACTIVITY 15 MIN HOT/COLD PACK ELECTRIC STIMULATION UNATT THERAPEUTIC EXERCISES NEUROMUSCULAR RE-ED MANUAL THERAPY FUNC ACTIVITY 15 MIN HOT/COLD PACK ELECTRIC STIMULATION UNA THERAPEUTIC EXERCISES NEUROMUSCULAR RE-ED MANUAL THERAPY FUNC ACTIVITY 15 MIN HOT/COLD PACK ELECTRIC STIMULATION UNATT THERAPEUTIC EXERCISES NEUROMUSCULAR RE-ED MANUAL THERAPY FUNC ACTIVITY 15 MIN HOT/COLD PACK ELECTRIC STIMULATION UNATT THERAPEUTIC EXERCISES NEUROMUSCULAR RE-ED MANUAL THERAPY FUNC ACTIVITY 15 MIN HOT/COLD PACK ELECTRIC STIMULATION UNATT THERAPEUTIC EXERCISES NEUROMUSCULAR RE-ED MANUAL THERAPY FUNC ACTIVITY 15 MIN GAIT TRAINING 15 MIN HOT/COLD PACK ELECTRIC STIMULATION UNATT Theraband, per yard THERAPEUTIC EXERCISES NEUROMUSCULAR RE-ED MANUAL THERAPY HOT/COLD PACK ELECTRIC STIMULATION UNATT PT RE-EVALUATION THERAPEUTIC EXERCISES NEUROMUSCULAR RE-ED MANUAL THERAPY HOT/COLD PACK ELECTRIC STIMULATION UNATT THERAPEUTIC EXERCISES NEUROMUSCULAR RE-ED MANUAL THERAPY GAIT TRAINING 15 MIN HOT/COLD PACK ELECTRIC STIMULATION UNATT THERAPEUTIC EXERCISES NEUROMUSCULAR RE-ED MANUAL THERAPY GAIT TRAINING 15 MIN HOT/COLD PACK ELECTRIC STIMULATION UNATT THERAPEUTIC EXERCISES NEUROMUSCULAR RE-ED MANUAL THERAPY GAIT TRAINING 15 MIN HOT/COLD PACK ELECTRIC STIMULATION UNATT PT EVALUATION THERAPEUTIC EXERCISES MANUAL THERAPY HOT/COLD PACK Advance Directives Directive Yes / No Effective Date File Name No Information Encounters Encounter Description Practice Location Reason(s) For Visit Diagnoses Date Provider Providers Copied on Encounter [facility], [place], [place], [id number], tel:[phone] Cecy No Information [facility]. Referring Provider: Juancarlos Arnold, [address], [place], [address]. tel:[phone] [facility], [place], [place], [address], [place] tel:[phone] [place] Unsp fracture of left acetabulum, subs for fx w routn healPain in left hipOth symptoms and signs involving the musculoskeleta l system [facility]. Referring Provider: Juancarlos Arnold, [address], [place], [address]. tel:[phone] [facility], [place], [place], [address], [place] tel:[phone] [place] Unsp fracture of left acetabulum, subs for fx w routn healPain in left hipOth symptoms and signs involving the musculoskeleta l system [facility]. Referring Provider: Juancarlos Arnold, [address], [place], [address]. tel:[phone] [facility], [place], [place], [address], [place] tel:[phone] [place] Unsp fracture of left acetabulum, subs for fx w routn healPain in left hipOth symptoms and signs involving the musculoskeleta l system [address] [place], . Referring Provider: Juancarlos Arnold, [address], [address]. tel:[phone] [facility], [place], [place], [address], [place] tel:[phone] [place] Unsp fracture of left acetabulum, subs for fx w routn healPain in left hipOth symptoms and signs involving the musculoskeleta l system [address] [place], [place], [place]. Referring Provider: Juancarlos Arnold, [address], [place], [address]. tel:[phone] [facility], [place], [place], [address], [place] tel:[phone] [place] Unsp fracture of left acetabulum, subs for fx w routn heal [address] [place], [place], [place]. Referring Provider: Juancarlos Arnold, [facility], [place], [address]. tel:[phone] [facility], [place], [place], [address], [place] tel:[phone] [place] Unsp fracture of left acetabulum, subs for fx w routn healPain in left hipOth symptoms and signs involving the musculoskeleta l system [place], [place]. Referring Provider: Juancarlos Arnold, [address], [place], [address]. tel:[phone] [facility], [place], [place], [address], [place] tel:[phone] [place] No Information 4 Rm Bloom. [address] [facility], [address], [place], [address], [place]. tel: [phone] [facility], [place], [place], [address], [place] tel:[phone] [place] No Information 4 Rm Bloom. [address] [facility], [address], [place], [address], [place]. tel: [phone] [facility], [place], [place], [address], [place] tel:[phone] [place] No Information Abraham-2 2-201 4 Rm Wolf. [address] [place] [address], [address], [place], [place], [facility], [place]. tel: [phone] [address], [place], [place], [address], [place] tel:[phone] [place] No Information 5-201 4 Rm Wolf. [address] [place] [address], [address], [place], [place], [facility], [place]. tel: [phone] [address], [place], [place], [address], [place] tel:[phone] [place] No Information 0 8-201 4 Rm Wolf. [address] [place] [address], [address], [place], [place], [facility], [place]. tel: [phone] [facility] [address], [place], [place], [address], [place] tel:[phone] [place] No Information Dec-3 1-201 3 Rm Wolf. [address] [place] [address], [address], [place], [place], [facility], [place]. tel: [phone] [facility] [address], [place], [place], [address], [place] tel:[phone] [place] No Information Dec-2 4-201 3 Rm Wolf. [address] [place] [address], [address], [place], [place], [facility], [place]. tel: [phone] [place] [address] [facility] [address], [place], [place], [address], [place] tel:[phone] [place] No Information Dec-2 0-201 3 Chantel Catracho. [address] [place] [address], [address], [place], [place], [facility], [place]. tel: [phone] [facility] [address], [place], [place], [address], [place] tel:[phone] [place] No Information Dec- 8 3 Rm Wolf. [address] [facility], [address], [place], [place], [facility], . tel: [phone] [facility], [address] [place] [address] [address], [place], [place], [address], tel:[phone] [place] No Information Sep- 3 Rm Wolf. [address] [place] [address], [facility] [address], [place], [place], [facility], [place]. tel: [phone] [facility] [address] [place], [place] [address], [place], [place], [address], tel:[phone] [place] No Information 0 3 Rm Wolf. [address] [place] [address], [address], [place], [place], [facility], [place]. tel: [phone] [facility] [address] [place] [address] [address], [place], [place], [address], tel:[phone] [place] No Information 0 3 Rm Wolf. [address] [place] [address], [facility] [address], [place], [place], [facility], [place]. tel: [phone] [facility] [address] [facility] [address], [place], [place], [address], tel:[phone] [place] Pain in joint involving ankle and foot 3 Darcy Gerardo . Family History Family Member Type Diagnosis Age At Onset No Information Payers Payer name Insurance type Covered alliance party ID Andregil susannececille(s) [facility] [place] CI [id number] Social History Type Description Quantity Date Captured Comments Sex Male Smoking Status No Information Chief Complaint And Reason For Visit No Information Reason For Referral Reason For Referral No Information History Of Present Illness Encounter Date Complaint History Of Prese nt Illness No Information Functional Status Date Functional Assessmen t No Information Instructions Date Instruction Additional Infor mation No Information Assessments Type Assessment Date No Information Patient Care Teams Name Effective Dates (start - stop) Status Members No Information
--- OUTSIDE RECORDS SUMMARY | 2025-03-21 06:39 | XMS_ITS | Clinical Summary ---
Author Organization [facility] [facility] Address [address] [facility] Attn: Epic Prelude ADT GISELE HOROWITZ [address] Care Team Providers Care Sales Program Manager Name Role Phone Unavailable Primary Care Provider [...] on package. 21 Each 3 8:12 AM FINANCIAL SERVICES TECHNICIAN 12/09/19 23 Active meloxicam (MOBIC) 15 mg tablet Take 1 Tablet (15 mg) by mouth daily. 30 Tablet 3 2:56 PM FINANCIAL SERVICES TECHNICIAN 12/19/19 23 Active ALPRAZolam (XANAX) 0.5 mg [...] meal. 360 Tablet 1 4 11:52 AM FINANCIAL SERVICES TECHNICIAN 08/25/20 24 Active metFORMIN (GLUCOPHAGE XR) 500 mg Extended Release 24 hour tablet Take 4 Tablets (2,000 mg) by mouth daily with the evening meal. 360 Tablet 1 5 2:28 PM CDT 08/29/20 24 Active traMADoL (ULTRAM) 50 mg tablet Take 1 Tablet (50 mg) by mouth 2 times daily as needed for pain. 60 Tablet 5 12:15 PM FINANCIAL SERVICES TECHNICIAN 08/29/20 24 Active methocarbamoL (ROBAXIN) 500 mg [...] needed for back pain. 270 Capsule 1 5 12:19 PM CDT 02/28/20 25 Active simvastatin (ZOCOR) 10 mg tablet Take 1 Tablet (10 mg) by mouth daily at bedtime. 90 Tablet 2 5 12:19 PM CDT 02/28/20 25 Active fenofibrate (LOFIBRA) 160 mg Tablet Take 1 Tablet (160 mg) by mouth daily. 90 Tablet 1 5 2:28 PM CDT 03/15/20 25 Active glipiZIDE (GLUCOTROL XL) 10 mg Extended Release 24 hour tablet Take 1 Tablet (10 mg) by mouth daily. 90 Tablet 1 5 2:28 PM CDT 03/15/20 25 Active hydroCHLOROthi azide 25 mg tablet Take 1 Tablet (25 mg) by mouth daily. 90 Tablet 1 5 2:28 PM CDT 03/15/20 25 Active lisinopriL (PRINIVIL) 40 mg tablet Take 1 Tablet (40 mg) by mouth daily. 90 Tablet 1 5 2:28 PM CDT 03/15/20 25 Active glipiZIDE (GLUCOTROL XL) 10 mg Extended Release 24 hour tablet Take 1 Tablet (10 mg) by mouth daily. 90 Tablet 1 5 4:50 PM FINANCIAL SERVICES TECHNICIAN 08/29/20 24 025 Discontinue d(Reorder) fenofibrate (LOFIBRA) 160 mg Tablet Take 1 Tablet (160 mg) by mouth daily. 90 Tablet 1 5 4:50 PM FINANCIAL SERVICES TECHNICIAN 08/29/20 24 025 Discontinue d(Reorder) lisinopriL (PRINIVIL) 40 mg tablet Take 1 Tablet (40 mg) by mouth daily. 90 Tablet 1 5 4:50 PM FINANCIAL SERVICES TECHNICIAN 08/29/20 24 025 Discontinue d(Reorder) hydroCHLOROthi azide 25 mg tablet Take 1 Tablet (25 mg) by mouth daily. 90 Tablet 1 5 4:50 PM FINANCIAL SERVICES TECHNICIAN 08/29/20 24 025 Discontinue d(Reorder) meloxicam (MOBIC) 15 mg [...]
--- OUTSIDE RECORDS SUMMARY | 2025-03-21 06:39 | XMS_ITS | Clinical Summary ---
Author Organization [facility] Address [address] [facility] [address] [place] [address] Phone Care Team Providers Care Line Assembler Aircraft Name Role Phone Kenton Roy MD Primary [...] (Adult) (1 - 1-dose 75+ series) 2030 Hepatitis B Immunization Aged Out No longer [...] Most Recently Relevant to Health Maintenance Insurance [facility] Care Teams Line Assembler Aircraft Relationship Specialty Start Date End Date Kenton Roy MD PCP - General Family Medicine 02/11/21
== END 2025-03-21 06:34 | disposition home or self-care (01) ==
PROVIDERS: PCP Family Medicine; Visit Provider Family Medicine
DX: R20.0 Anesthesia of skin (principal); R20.2 Paresthesia of skin; H02.409 Unspecified ptosis of unspecified eyelid; R29.898 Other symptoms and signs involving the musculoskeletal system
CPT/HCPCS: 70551; 93880

== ENCOUNTER 2025-04-18 09:41 | Outpatient (CLI) | payer MEDICARE, SELFPAY ==
--- OUTSIDE RECORDS SUMMARY | 2025-04-18 09:48 | XMS_ITS | Clinical Summary ---
Author Organization [facility] Address [address] [facility] [address] [place] [address] Phone Care Team Providers Care Mirror Inspector Name Role Phone Kenton Roy MD Primary [...] Recently Relevant to Health Maintenance Insurance [facility] Care Teams Mirror Inspector Relationship Specialty Start Date End Date Kenton Roy MD PCP - General Family Medicine 02/11/21
--- OUTSIDE RECORDS SUMMARY | 2025-04-18 09:48 | XMS_ITS | Clinical Summary ---
Author Organization [facility] Address [address] Attn: Epic Prelude ADT [place] [address] Care Team Providers Care Military Administrative Technician Name Role Phone Unavailable Primary Care Provider Unavailabl e Medications testosterone cypionate (DEPO-TESTOSTE DEENA) 200 mg/mL Oil Inject 1 mL (200 mg) by intramuscular injection every 30 days. 3 mL 1 2 Active testosterone cypionate (DEPO-TESTOSTE DEENA) 200 mg/mL Oil Inject 1 mL (200 mg) by intramuscular injection every 30 days. 3 mL 1 07/05/2022 10:18 AM CDT 2 Active methylPREDNISo lone (MEDROL DOSPACK) 4 mg Tablets, Dose Pack Take as directed on package. 21 Each 12/10/2022 8:12 AM ASSISTANT ANALYST 3 Active meloxicam (MOBIC) 15 mg tablet Take 1 Tablet (15 mg) by mouth daily. 30 Tablet 12/19/2022 2:56 PM ASSISTANT ANALYST 3 Active ALPRAZolam (XANAX) 0.5 mg tablet [...] meal. 360 Tablet 1 08/25/2024 11:52 AM ASSISTANT ANALYST 4 Active metFORMIN (GLUCOPHAGE XR) 500 mg Extended Release 24 hour tablet Take 4 Tablets (2,000 mg) by mouth daily with the evening meal. 360 Tablet 1 03/15/2025 2:28 PM CDT 4 Active traMADoL (ULTRAM) 50 mg tablet Take 1 Tablet (50 mg) by mouth 2 times daily as needed for pain. 60 Tablet 10/19/2024 12:15 PM ASSISTANT ANALYST 4 Active methocarbamoL (ROBAXIN) 500 mg tablet Take 1 tablet by mouth at bedtime 7 Tablet 12/23/2024 6:13 PM CDT 5 Active lidocaine (LIDODERM) 5 % Adhesive Patch, Medicated Apply 1 patch on most painful area once daily for up to 12 hours. Remove for 12 hours. 15 Patch 12/23/2024 6:13 PM CDT 5 Active oxyCODONE (ROXICODONE) 5 mg tablet Take 1 tablet by mouth every 8 hours As Needed for pain 10 Tablet 12/23/2024 6:13 PM CDT 5 Active methylPREDNISo lone (Medrol, Bert,) 4 mg Tablets, Dose Pack Take as directed on package 21 Tablet 12/27/2024 11:00 AM CDT 5 Active traMADol (ULTRAM) 50 mg tablet Take 1 Tablet (50 mg) by mouth 2 times daily as needed for pain. 60 Tablet 02/04/2025 10:58 AM CDT 5 Active gabapentin (NEURONTIN) 300 mg capsule Take 1 Capsule (300 mg) by mouth 3 times daily as needed for back pain. 270 Capsule 1 03/01/2025 12:19 PM CDT 5 Active simvastatin (ZOCOR) 10 mg tablet Take 1 Tablet (10 mg) by mouth daily at bedtime. 90 Tablet 2 03/01/2025 12:19 PM CDT 5 Active fenofibrate (LOFIBRA) 160 mg Tablet Take 1 Tablet (160 mg) by mouth daily. 90 Tablet 1 03/15/2025 2:28 PM CDT 5 Active glipiZIDE (GLUCOTROL XL) 10 mg Extended Release 24 hour tablet Take 1 Tablet (10 mg) by mouth daily. 90 Tablet 1 03/15/2025 2:28 PM CDT 5 Active hydroCHLOROthi azide 25 mg tablet Take 1 Tablet (25 mg) by mouth daily. 90 Tablet 1 03/15/2025 2:28 PM CDT 5 Active lisinopriL (PRINIVIL) 40 mg tablet Take 1 Tablet (40 mg) by mouth daily. 90 Tablet 1 03/15/2025 2:28 PM CDT 5 Active Encounters Date Type Department Care Team [...] (1 of 2) 2005 INFLUENZA VACCINE (#1) 2025 RSV VACCINE (60+ or ) (1 - 1-dose 75+ series) 2030 Insurance RX NUR PLANS (INTERNAL) [facility] RX [employer] RX Member Subscriber Plan / Payer (Ef fective 2024-Present) Name:Chilo Dooley Relation to Subscriber:Self Name:Chilo Dooley Subscriber ID:Not on file Payer ID:Not on file Group ID:[id number] Type:RX Medicare Part D Address: [place]
--- NOTE | 2025-04-18 11:00 | NEURO_ITS ---
Impression: # Complains of numbness of left hand ? # Left Ulnar Neuropathy across the elbow ? # Left mild Carpal Tunnel Syndrome Nerve Conduction Studies ?Stim Site NR Peak (ms) P-T Amp (?V) Site1 Site2 Delta-P (ms) Dist (cm) Don (m/s) Left Median Anti Sensory (2-3nd Digit) Wrist ? 3.2 32.0 Wrist 2-3nd Digit 3.2 14.0 44 Wrist ? 3.5 13.4 Wrist 2-3nd Digit 3.2 14.0 44 Left Radial Anti Sensory (Base 1st Digit) Wrist ? 2.1 23.7 Wrist Base 1st Digit 2.1 0.0 Left Ulnar Anti Sensory (5th Digit) Wrist ? 3.0 14.2 Wrist 5th Digit 3.0 14.0 47 ?Stim Site NR Onset (ms) O-P Amp (mV) Site1 Site2 Delta-0 (ms) Dist (cm) Don (m/s) Left Median Motor (Abd Poll Brev) Wrist ? 4.4 1.3 Elbow Wrist 5.4 32.0 59 Elbow ? 9.8 1.3 Left Ulnar Motor (Abd Dig Minimi) Wrist ? 2.6 3.7 A Elbow Wrist 5.8 31.0 53 A Elbow ? 8.4 2.9 B Elbow Wrist 4.0 24.0 60 B Elbow ? 6.6 3.2 Electromyography ?Side Muscle Nerve Root Ins Act Fibs Amp Dur Recrt Comment Left 1stDorInt Ulnar C8-T1 Nml Nml Nml Nml Nml Left Ext Indicis Radial (Post Int) C7-8 Nml Nml Nml Nml Nml Left Ext Digitorum Radial (Post Int) C7-8 Nml Nml Nml Nml Nml Left BrachioRad Radial C5-6 Nml Nml Nml Nml Nml Left PronatorTeres Median C6-7 Nml Nml Nml Nml Nml Left Abd Poll Brev Median C8-T1 Nml Nml Nml Nml Nml Left ABD Dig Min Ulnar C8-T1 Nml Nml Nml Nml Nml Left FlexPolLong Median (Ant Int) C7-8 Nml Nml Nml Nml Nml Left Abd Poll Long Radial (Post Int) C7-8 Nml Nml Nml Nml Nml
== END 2025-04-18 09:42 | disposition home or self-care (01) ==
PROVIDERS: PCP Family Medicine; Visit Provider Family Medicine
DX: G56.22 Lesion of ulnar nerve, left upper limb (principal); G56.02 Carpal tunnel syndrome, left upper limb; R29.898 Other symptoms and signs involving the musculoskeletal system
CPT/HCPCS: 95886; 95909

== ENCOUNTER 2025-08-02 08:25 | Outpatient (CLI) | payer MEDICARE, SELFPAY ==
--- NOTE | 2025-08-02 11:00 | NEURO_ITS ---
Impression: # Complains of numbness of right hand. Known Diabetic. ? # Right sensory Carpal Tunnel Syndrome. ? # Right ulnar neuropathy across the elbow; Conduction velocity unchanged compared to ?previous study.? # Needle/EMG exam abnormal but normal muscles above the elbow. ?? Nerve Conduction Studies ?Stim Site NR Peak (ms) P-T Amp (?V) Site1 Site2 Delta-P (ms) Dist (cm) Don (m/s) Right Median Anti Sensory (2-3nd Digit) Wrist ? 3.7 30.8 Wrist 2-3nd Digit 3.7 14.0 38 Wrist ? 3.9 17.0 Wrist 2-3nd Digit 3.7 14.0 38 Right Radial Anti Sensory (Base 1st Digit) Wrist ? 2.6 19.1 Wrist Base 1st Digit 2.6 0.0 Right Ulnar Anti Sensory (5th Digit) Wrist ? 2.6 22.4 Wrist 5th Digit 2.6 14.0 54 ?Stim Site NR Onset (ms) O-P Amp (mV) Site1 Site2 Delta-0 (ms) Dist (cm) Don (m/s) Right Median Motor (Abd Poll Brev) Wrist ? 3.5 9.1 Elbow Wrist 5.6 32.0 57 Elbow ? 9.1 7.9 Right Ulnar Motor (Abd Dig Minimi) Wrist ? 2.9 5.4 A Elbow Wrist 6.4 32.0 50 A Elbow ? 9.3 7.2 B Elbow Wrist 3.8 22.0 58 B Elbow ? 6.7 4.5 F Wave Studies ?NR F-Lat (ms) L-R F-Lat (ms) Right Median (Mrkrs) (Abd Poll Brev) ? 30.91 Right Ulnar (Mrkrs) (Abd Dig Min) ? 35.20 Electromyography ?Side Muscle Nerve Root Ins Act Fibs Amp Dur Recrt Comment Right 1stDorInt Ulnar C8-T1 Nml Nml Decr >12ms +1 Right Ext Indicis Radial (Post Int) C7-8 Nml Nml Nml Nml Nml Right Ext Digitorum Radial (Post Int) C7-8 Nml Nml Nml Nml Nml Right BrachioRad Radial C5-6 Nml Nml Nml Nml Nml Right PronatorTeres Median C6-7 Nml Nml Nml Nml Nml Right Abd Poll Brev Median C8-T1 Nml Nml Nml Nml Nml Right ABD Dig Min Ulnar C8-T1 Nml Nml Decr >12ms +1 Right FlexPolLong Median (Ant Int) C7-8 Nml Nml Nml Nml Nml Right Abd Poll Long Radial (Post Int) C7-8 Nml Nml Nml Nml Nml Right Biceps Musculocut C5-6 Nml Nml Nml Nml +1 Right Triceps Radial C6-7-8 Nml Nml Nml Nml +1 Right Deltoid Axillary C5-6 Nml Nml Nml Nml Nml
== END 2025-08-02 08:26 | disposition home or self-care (01) ==
PROVIDERS: PCP Family Medicine; Visit Provider Plastic Surgery
DX: G56.21 Lesion of ulnar nerve, right upper limb (principal); G56.01 Carpal tunnel syndrome, right upper limb
CPT/HCPCS: 95886; 95909

== ENCOUNTER 2025-08-14 09:55 | Outpatient (CLI) | payer MEDICARE, SELFPAY ==
--- NOTE | ~2025-08-14 | XR_ITS ---
EXAMINATION: XR elbow RT min 3V, 08/14/2025 10:01 TRACK SUPERVISOR HISTORY: G56.21 - Lesion of ulnar nerve, right upper limb COMPARISON: No comparisons available. Findings: No acute fracture or malalignment. Moderate degenerative changes Soft tissues unremarkable. Impression: No acute fracture or malalignment. Reviewed, dictated and finalized at location P. K SUPERVISOR Impression: No acute fracture or malalignment.
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
--- OUTSIDE RECORDS SUMMARY | 2025-08-14 10:46 | XMS_ITS | Clinical Summary ---
Author Organization [facility] Address [address] [facility] [address] [place] [address] Phone Care Team Providers Care Returns Processor Name Role Phone Kenton Roy MD Primary [...] (HCV) Screening 1955 TdaP Immunization 1955 Cologuard 2000 Immunochemical Fecal Occult Blood 2000 Pneumococcal Immunization (5 0+ years) (1 of 1 - PCV) 2005 Zoster Immunization (1 of 2) 2005 Colonoscopy 04/04/2022 04/04/2021 Colorectal Cancer Screening 04/04/2022 Influenza Immunization (#1) 2025 SARS-COV-2 Immunization ( - season) 2025 Respiratory Syncytial Virus (RSV) Immunization (Adult) (1 - 1-dose 75+ series) 2030 Hepatitis B Immunization Aged Out No longer eligible based on patient's age to complete this topic Human Papillomavirus (HPV) Immunization Aged Out No longer eligible b ased on patient's age to complete this topic [...] Recently Relevant to Health Maintenance Results * COLONOSCOPY (04/04/2021) Myke Ibarra DO PROCEDURE/MINOR SURGICAL ORDERA BLES Final Result from Last 3 Months or Most Recently Relevant to Health Maintenance Insurance [facility] Care Teams Returns Processor Relationship Specialty Start Date End Date Kenton Roy MD PCP - General Family Medicine 02/11/21
--- OUTSIDE RECORDS SUMMARY | 2025-08-14 10:46 | XMS_ITS | Clinical Summary ---
Author Organization [facility] Address [address] Attn: Epic Prelude ADT [place] [address] Care Team Providers Care Medical Office Rep Name Role Phone Unavailable Primary Care Provider [...] on package. 21 Each 12/10/2022 8:12 AM BARREL HEADER 3 Active meloxicam (MOBIC) 15 mg tablet Take 1 Tablet (15 mg) by mouth daily. 30 Tablet 12/19/2022 2:56 PM BARREL HEADER 3 Active ALPRAZolam (XANAX) 0.5 mg tablet [...] with the evening meal. 360 Tablet 1 05/30/2025 2:57 PM CDT 4 Active metFORMIN (GLUCOPHAGE XR) 500 mg Extended Release 24 hour tablet Take 4 Tablets (2,000 mg) by mouth daily with the evening meal. 360 Tablet 1 03/15/2025 2:28 PM CDT 4 Active traMADoL (ULTRAM) 50 mg tablet Take 1 Tablet (50 mg) by mouth 2 times daily as needed for pain. 60 Tablet 10/19/2024 12:15 PM BARREL HEADER 4 Active methocarbamoL (ROBAXIN) 500 mg tablet [...] mouth daily at bedtime. 90 Tablet 2 05/30/2025 2:57 PM CDT 5 Active fenofibrate (LOFIBRA) 160 mg Tablet Take 1 Tablet (160 mg) by mouth daily. 90 Tablet 1 05/30/2025 2:57 PM CDT 5 Active glipiZIDE (GLUCOTROL XL) 10 mg Extended Release 24 hour tablet Take 1 Tablet (10 mg) by mouth daily. 90 Tablet 1 05/30/2025 2:57 PM CDT 5 Active hydroCHLOROthi azide 25 mg tablet Take 1 Tablet (25 mg) by mouth daily. 90 Tablet 1 05/30/2025 2:57 PM CDT 5 Active lisinopriL (PRINIVIL) 40 mg tablet Take 1 Tablet (40 mg) by mouth daily. 90 Tablet 1 05/30/2025 2:57 PM CDT 5 Active Encounters Date Type Department Care Team Description 07/18/2025 External Device Data [facility] ABSTRACTION Provider, Abstract 06/20/2025 External Device Data [facility] ABSTRACTION Provider, Abstract [...] YEARS (1 of 1 - PCV) 03/05/20 ZOSTER VACCINE (1 of 2) 2005 INFLUENZA [...]
== END 2025-08-14 09:56 | disposition home or self-care (01) ==
PROVIDERS: PCP Family Medicine; Visit Provider Plastic Surgery
DX: G56.21 Lesion of ulnar nerve, right upper limb (principal)
CPT/HCPCS: 73080

== ENCOUNTER 2025-09-18 08:02 | Outpatient (CLI) | payer MEDICARE, SELFPAY ==
[2025-09-18 18:58] LABS: Anion Gap 7 mmol/L (4-12); Blood Urea Nitrogen 18 mg/dL (9-20); Calcium 9.4 mg/dL (8.4-10.2); Carbon Dioxide 29 mmol/L (22-30); Chloride 100 mmol/L (98-107); Estimated Glomerular Filt Rate > 60; Glucose 113 mg/dL (65-110); Potassium 3.7 mmol/L (3.4-5.0); Sodium 136 mmol/L (137-145)
== END 2025-09-18 08:03 | disposition home or self-care (01) ==
LOC: ANHGOSHLAB 08:04
PROVIDERS: PCP Family Medicine; Visit Provider Anesthesiology
DX: Z01.818 Encounter for other preprocedural examination (principal); E11.9 Type 2 diabetes mellitus without complications
CPT/HCPCS: 36415; 80048

== ENCOUNTER 2025-09-20 08:14 | Outpatient (CLI) | payer MEDICARE, SELFPAY ==
--- NOTE | 2025-09-20 08:30 | ECG_ITS ---
Test Date: 2025-09-20 08:49:31 Measurements Intervals [place] Rate: 80 P: 42 NV: 164 QRS: -17 QRSD: 96 T: 37 QT: 356 QTc: 411 Interpretive Statements SINUS RHYTHM EARLY PRECORDIAL R/S TRANSITION BORDERLINE ST-T WAVE ABNORMALITY- HIGH LATERAL LEADS BASELINE ARTIFACT- I, II, III, AVR, AVL, AVF, V3-V4, V6 BORDERLINE ECG Compared to ECG 11/09/2024 11:59:54 Ventricular premature complex(es) no longer present Electronically Signed On 09-20-2025 08:54:54 CAR BLOCKER by Kenroy Boyer D.O.
== END 2025-09-20 08:15 | disposition home or self-care (01) ==
LOC: ANHLAB 08:16
PROVIDERS: PCP Family Medicine; Visit Provider Anesthesiology
DX: Z01.818 Encounter for other preprocedural examination (principal); R94.31 Abnormal electrocardiogram [ECG] [EKG]; I10 Essential (primary) hypertension; E78.5 Hyperlipidemia, unspecified
CPT/HCPCS: 93005

== ENCOUNTER 2025-09-28 07:34 | Day surgery (SDC) | payer MEDICARE, SELFPAY ==
[2025-09-14 14:28] VITALS: BMI 28.2
--- NOTE | 2025-09-28 06:57 | PM.HPGS ---
History of Present Illness History of Present Illness Chief complaint: Right Cubital Tunnel Sydrome Narrative: Patient seen and examined in pre-operative holding area. No interval change in medical history or symptoms. Patient recalls previous discussion of benefits and alternatives to procedure. Continues to desire to proceed with right cubital tunnel release revision. Reviewed procedure, post-op expectations and risks including but not limited to bleeding, infection, injury to tendon/nerve/vessel, decreased hand function, stiffness, RSD, no change or worsening of symptoms. I discussed the possible use of assistants and their participation in the case. Patient stated understanding and signed the consent form wishing to proceed. Review of Systems Review of Systems: All systems reviewed & are unremarkable except as noted in HPI and below PMFSH Past Medical History Medical History Osteoarthritis Cervical spine arthritis Hypertension History of blood clots Right rotator cuff tear Vitamin D deficiency Hypogonadism in male History of colon polyps Medial meniscus, posterior horn derangement Eczema ankle DVT (deep venous thrombosis) (~2013) 2013 - LLE Erectile dysfunction Essential (primary) hypertension Chronic pain of left ankle Dyslipidemia Type 2 diabetes mellitus without complication, without long-term current use of insulin Surgical History Surgical History S/P cubital tunnel release (~11/24/24) right History of cervical spinal surgery (~07/2023) C7 laminectomy and right C7-T1 foraminotomy, C6-T1 lateral mass instrumented fusion History of medial meniscus repair of right knee (~12/2020) 12/2020 History of foot surgery (~2013) Left x3 2014 Family History Family History Sibling Diabetes mellitus Mother Diabetes mellitus Hypertension Father Hypertension Other Arthritis High cholesterol Social History Social History Social History: Caffeine-coffee Smoking packs per day: 3 Smoking cigarettes per day: 60.0 Years smoked: 38 Smoking pack-years: 114.00 Smoking status: Former smoker Tobacco type: cigarettes Second hand tobacco smoke exposure: Yes Smoking end date: 10/12/03 Alcohol intake: current Alcohol use details: ONE DRINK PER MONTH Substance use: never Substance use type: does not use Lack of Transportation: No Lack of Food: Never True Current Housing: I Have Housing Concerned About Future Housing: No Difficulty Paying Gas/Electric Bills: No Difficulty Paying for Meds: No Currently Unemployed: No Education: Trade/Vocational Certificate Difficulty w/ Childcare or Family Care: No Living arrangements: with family Occupation/Education: occupation 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 Gender identity (if verbalized by the patient): Male Spiritual care concerns: No Agree to blood products: Yes Meds Home Medications and Allergies Home Medications ?Medication ?Instructions ?Recorded ?Confirmed ?Type lancets 30 gauge (OneTouch Delica #25 ea 11/16/19 02/27/25 History Lancets) acetaminophen [Tylenol] 650 mg PO PRN PRN Pain 11/29/20 09/28/25 History multivitamin 1 tablet PO DAILY 11/29/20 09/28/25 History naproxen sodium [Aleve] 220 mg PO PRN PRN Pain 11/29/20 09/28/25 History omega-3 fatty acids 1,000 mg 1,000 mg PO DAILY 11/29/20 09/28/25 History capsule (Fish Oil Concentrate) saw palmetto 1 tab-cap PO DAILY 11/29/20 09/28/25 History vitamin B complex (B 1 tablet PO DAILY 11/29/20 09/28/25 History Complex-Vitamin B12 tablet) blood sugar diagnostic #100 ea 04/30/21 02/27/25 Rx aspirin 81 mg tablet,delayed 81 mg PO DAILY 04/08/23 09/28/25 History release (Adult Aspirin Regimen) cholecalciferol (vitamin D3) 25 25 mcg PO DAILY 07/28/23 09/28/25 History mcg (1,000 unit) tablet simvastatin 10 mg tablet 10 mg PO QHS #90 tabs 02/27/25 09/28/25 Rx fenofibrate 160 mg tablet 160 mg PO DAILY #90 tabs 09/11/25 09/28/25 Rx glipizide 10 mg tablet, extended 10 mg PO DAILY #90 tabs 09/11/25 09/28/25 Rx release 24 hr hydrochlorothiazide 25 mg tablet 25 mg PO DAILY #90 tabs 09/11/25 09/28/25 Rx lisinopril 40 mg tablet 40 mg PO DAILY #90 tabs 09/11/25 09/28/25 Rx metformin 500 mg tablet,extended 2,000 mg (4 x 500 mg) PO QPM #360 09/11/25 09/28/25 Rx release 24 hr tabs Allergies Allergy/AdvReac Type Severity Reaction Status Date / Time No Known Allergies Allergy Verified 09/28/25 08:35 Exam Narrative: unchanged Assessment and Plan Assessment and plan (1) Ulnar neuropathy at elbow of right upper extremity: Code(s): G56.21 - Lesion of ulnar nerve, right upper limb Status: Acute Assessment and Plan: cont as above
--- NOTE | 2025-09-28 06:57 | W.PM.PROC2 ---
Procedure Note - Detailed Date of Procedure 09/28/25 Pre-op Diagnosis Right Cubital Tunnel Sydrome Post-op Diagnosis Same Procedure Performed right cubital tunnel release revision Surgeon Valentin Fernandez MD Oil Pipeline Operator melania boyle pa-c Anesthesia MAC Description of Procedure INFORMED CONSENT:The patient was seen and examined and marked in the pre-op area.? The patient signed the consent form. PROCEDURE IN DETAIL: The patient taken back to OR on the stretcher in supine position. Time out performed with anesthesia, surgeon and staff agreeing on patient's name site and surgery to be performed SCDs were placed on the lower extremities and inflated A tourniquet was placed on {right} upper extremity and antibiotics given IV After anesthesia administered sedation I injected {8}cc 1%lido with epi and 0.5% marcaine plain at the operative site The?{right upper extremity}?was prepped and draped in sterile fashion the??{right upper extremity} was??exsanguinated with Esmarch bandage and tourniquet inflated to 250mmHg I proceeded with making an incision over the right cubital tunnel utilizing patient's previous incision extending it proximally and distally through skin and dermis with a 15 blade scalpel. Littler scissors were used to spread through subcutaneous tissue and scar where I was able to identify the ulnar nerve situated behind the medial epicondyle. At this level of the medial epicondyle there was a moderate amount of scar tissue surrounding the nerve as well as a tighter epineurial scar. I released this with Littler scissors until I visualized healthier appearing yellow nerve. I proceeded with proximal dissection and did not identify any significant areas of constriction. Visible basal nerve warm were noted on the nerve which appeared healthy. I proceeded distally noting a significant amount of scar tissue around the proximal aspect of the FCU fascia. I proceeded with release of this fascia and scar tissue into the proximal forearm. The nerve appeared healthy with a soda form at this level as well. I was able to insert my small finger along the path of the nerve into the proximal forearm and up the arm near the area of previous existing intermuscular septum would been without any restriction. Full elbow range of motion noted no subluxation of the nerve. I irrigated with normal saline and closed with 3-0 Vicryl for dermis and 4-0 Monocryl for subcuticular closure. The incision was covered with Dermabond then 4x4s, sho, and a posterior elbow splint for patient safety, security and comfort and secured with amparo bandages after the tourniquet was let down noting the hand was warm and well perfused.? Patient awaken from anesthesia and transferred to recovery in stable condition Complications - none EBL- 1cc Disposition - home in stable condition Melania Boyle PA-C was essential for positioning, retraction, closure and dressing placement. [facility] Billing Surgery - Charge Forward: Surgery Billing ([id number] for melania)
--- OUTSIDE RECORDS SUMMARY | 2025-09-28 08:30 | XMS_ITS | Clinical Summary ---
Author Organization [facility] Address [address] [place] [address] Care Team Providers Care Train Brakeman Name Role Phone Kenton Roy MD Primary Care Provider Denton Plascencia MD Unavailable [phone] Allergies No known active allergies Medications fenofibrate (TRIGLIDE) 160 mg tabletIndicatio ns:hyperlipidem ia Take 1 tablet (160 mg total) by mouth diesel service technician before breakfast 9 Active lisinopril (PRINIVIL,ZESTR IL) 40 mg tabletIndicatio ns:hypertension Take 1 tablet (40 mg total) by mouth diesel service technician before breakfast 9 Active metFORMIN XR (GLUCOPHAGE XR) 500 mg 24 hr tabletIndicatio ns:type 2 diabetes mellitus Take 4 tablets (2,000 mg total) by mouth daily after dinner 9 Active ONETOUCH DELICA LANCETS 30 gauge misc CHECK SUGARS EVERY DAY. E11.9 5 9 Active ONETOUCH ULTRA BLUE TEST STRIP strip CHECK SUGARS EVERYDAY. E11.9 5 9 Active ALCOHOL PREP PADS pads, medicated CHECK SUGARS DAILY. E11.9 5 9 Active acetaminophen 500 mg capsule Take 2 capsules (1,000 mg total) by mouth every 6 (six) hours 30 tablet 9 Active Additional Information Patient taking differently:1,000 mg oral Every 6 hours scheduled,Indications: Pain, Informant: Self, Reported on 09/04/2025 diphenhydrAMINE -acetaminophen (TYLENOL PM) 25-500 mg tabletIndicatio ns:Insomnia,Randal n Take 1 tablet by mouth as needed for sleep Active glipiZIDE (GLUCOTROL) 10 mg tabletIndicatio ns:type 2 diabetes mellitus Take 1 tablet (10 mg total) by mouth 2 (two) times a day before breakfast and lunch 5 Active multivitamin tabletIndicatio ns:Vitamin Deficiency Prevention Take 1 tablet by mouth diesel service technician before breakfast 1 Active hydroCHLOROthia zide (HYDRODIURIL) 25 mg tabletIndicatio ns:hypertension Take 1 tablet (25 mg total) by mouth diesel service technician before breakfast 3 Active cholecalciferol 25 mcg (1,000 unit) tabletIndicatio ns:Vitamin D Deficiency Take 1 tablet (1,000 Units total) by mouth diesel service technician before breakfast 3 Active vitamin b complex tabletIndicatio ns:Vitamin Deficiency Prevention Take 1 tablet by mouth diesel service technician before breakfast 1 Active traMADoL (ULTRAM) 50 mg tabletIndicatio ns:Pain Take 1 tablet (50 mg total) by mouth 2 (two) times a day as needed for pain Hasn't used in months per pt 3 Active simvastatin (ZOCOR) 10 mg tabletIndicatio ns:hyperlipidem ia Take 1 tablet (10 mg total) by mouth nightly 5 Active naproxen sodium 220 mg capsuleIndicati ons:Pain Take 220 mg by mouth as needed 1 Active omega-3 fatty acids-fish oil 300-1,000 mg capsuleIndicati ons:hypertrigly ceridemia Take 1 capsule (1,000 mg total) by mouth diesel service technician before breakfast 1 Active saw palmetto 160 mg capsuleIndicati ons:supplement Take 1 capsule by mouth diesel service technician before breakfast 1 Active erythromycin (ILOTYCIN) ophthalmic ointment Place on incisions three times per day and in operative eye as needed. 3.5 g 3 5 Active Active Problems Problem Noted Date Diagnosed [...] Encounters Date Type Department Care Team Description 09/12/2025 3:30 PM SHRUB GROWER Office Visit [facility] Medicine Ophthalmology 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 Operating Room [address] [place] [id number] Denton Plascencia MD Bilateral upper lid ptosis repair [09982 (CPT )] 09/04/2025 10:41 AM SHRUB GROWER Anesthesia Event [facility] Operating Room [address] [place] [phone] Tahira Villa MD Yee, Branden Edward, MD 09/04/2025 8:51 AM SHRUB GROWER - 09/04/2025 11:47 AM SHRUB GROWER Hospital Encounter 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 [facility], [address] [place] [id number] Denton Plascencia MD 08/08/2025 2:15 PM CDT Office Visit [facility] Medicine Ophthalmology [address], [address] [place] [address] Denton Plascencia MD Ptosis of left eyelid (Primary Dx); Myogenic ptosis of eyelid of both eyes from Last 3 Months Surgical History Surgery Date Site/Laterality Comments UMBILICAL HERNIA REPAIR 10/12/1984 - 10/11/1985 FOOT SURGERY 10/12/2013 - 10/11/2014 Left x3 with hardware KNEE CARTILAGE SURGERY 10/12/2020 - 10/11/2021 Right SPINE SURGERY 10/12/2022 - 10/11/2023 cervical BLEPHAROPTOSIS REPAIR 09/04/2025 Eye/Bilateral Procedure: Bilateral upper lid ptosis repair; Surgeon: Denton Plascencia MD; Location: [facility] OPERATING ROOM; Service: Ophthalmology; Laterality: Bilateral; Medical History Medical History Date Comments Diabetes mellitus Hypertension Hyperlipemia DVT (deep venous thrombosis) age 18--provoked by injury DVT (deep venous thrombosis) ~[age] after being immobile for prolonged time d/t injury Family History Medical History Relation Name Comments Macular degeneration Mother Anesthesia problems Neg Hx Relation Name Status Comments Mother Social History Tobacco Use Types Packs/Day Years Used Date Smoking Tobacco: Former Cigarettes 1 27 S tarted: 1973 Smokeless Tobacco: Never Tobacco Cessation:Counseling Given: Not Answered Alcohol Use Standard Drinks/Week Comments Yes 0 (1 standard drink = 0.6 oz pur e alcohol) AUDIT-C Answer Date Recorded Q1: How often do you have a drink containing alc ohol? Monthly or less 09/04/2025 Q2: How many drinks containi ng alcohol do you have on a typical day when you are drinking? 1 or 2 09/04/2025 Q3: How often do you have si x or more drinks on one occasion? Never 09/04/2025 Personal Safety Answer Date Recorded Have you ever been in or are you currently in a harmful physical or emotional relationship or is someone making you feel afraid or unsafe? Denies 09/04/2025 Sex and Gender Information Value Date Recorded Sex Assigned at Not on file Legal Sex Male 10:22 AM SHRUB GROWER Gender Identity Not on file Sexual Orientation Not on file Last Filed Vital Signs Vital Sign Reading Time Taken Comments Blood Pressure 149/91 09/04/2025 11:40 AM SHRUB GROWER Pulse 77 09/04/2025 11:40 AM SHRUB GROWER Temperature 36.4 C (97.5 F) 09/04/2025 11:25 AM SHRUB GROWER Respiratory Rate 15 09/04/2025 11:40 AM SHRUB GROWER Oxygen Saturation 93% 09/04/2025 11:40 AM SHRUB GROWER Inhaled Oxygen Concentration - - Weight 97.6 kg (215 lb 1.6 oz) 09/04/2025 9:25 A M SHRUB GROWER Height 185.4 cm (6' 1) 09/04/2025 9:25 AM SHRUB GROWER Body Mass Index 28.38 09/04/2025 9:25 AM SHRUB GROWER Plan of Treatment Health Maintenance Due Date Last Done Comments Albumin Creatinine Ratio, Urine 1955 Colon Cancer Screening-Colonoscopy 1955 Depression Screening 1955 Hemoglobin A1C 1955 Hepatitis C Screening 1955 eGFR 1955 Dilated Eye Exam 1955 Foot Exam 1955 Hepatitis B Screening 1973 Zoster Vaccine (1 of 2) 2005 Abdominal Aortic Aneurysm (A AA) Screen 2020 Lipid Panel 2020 2019 Well Visit 65+ 2020 Covid-19 Vaccine (3 - 2024-2 6 season) 2025 12/28/2020, 12/07/2020 Influenza Vaccine (#1) 2025 , 08/07/2019, 08/04/2018, Additional history exists Fall Risk Assessment 09/04/2026 09/04/2025 DTaP/Tdap/Td Vaccine (3 - Td or Tdap) 03/04/2029 03/04/2019, 05/30/2016 Pneumococcal vaccine 65+ Completed 08/29/2024 Goals Goal Patient Goal Type Associated Problems Recent Progress Patient-Stated? 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 Fasting Glucose reference ranges are: 0 - 150 years: 70 mg/dL - 99 mg/dL Current interpretive data was last revised on 2014. POC Device Number [id number] JOLIE RAO Blood 09/04/2025 11:2 8 AM SHRUB GROWER 09/04/2025 11:28 AM SHRUB GROWER us Denton Plascencia MD LAB POCT ORDERABLES - DE VICE Final Result JOLIE [facility]NN[facility] [id number] [facility] Department [place] [address] * POCT glucose (09/04/2025 9:37 AM SHRUB GROWER) Glucose, POC 126 70 - 199 mg/dL Comment: Interpretive Data Glucose is assumed to be non-fasting. Fasting Glucose reference ranges are: 0 - 150 years: 70 mg/dL - 99 mg/dL Current interpretive data was last revised on 2014. POC Device Number [id number] JOLIE FLYNNWLAURA Blood 09/04/2025 9:37 AM SHRUB GROWER 09/04/2025 9:37 AM SHRUB GROWER us Denton Plascencia MD LAB POCT ORDERABLES - DE VICE Final Result JOLIE [facility] [id number] [facility]. Department [place] [address] * Ptosis Visual Field, Limited - OS [...] Cholesterol 131 30 - 199 mg/dL [facility] Comment: Interpretive Data Ages < or = [...] revised on 2018. Triglycerides 226(H) <=149 mg/dL [facility] Comment: Interpretive Data Ages < or = [...] revised on 2018. HDL 46 >=40 mg/dL [facility] Comment: Interpretive Data Ages < or = [...] on 2018. LDL, calculated 40 <=129 mg/dL [facility] Comment: Interpretive Data Ages < or = [...] revised on 2018. Non-HDL Cholesterol 85 mg/dL [facility] Comment: Interpretive Data Ages < or = [...] last revised on 2018. Chol/HDL ratio 3 [facility] Blood specimen (specimen) 2019 5:26 AM CDT 2019 5:49 AM CDT Narrative [facility] - 2019 8:24 AM CDT Cooper Ortega DO LAB BLOOD ORDERABLES [facility] Result [facility] Department [place] [address] from Last 3 Months or Most Recently Relevant to Health Maintenance Additional Health Concerns Active Problems Noted Date Diagnosed Date Autogenerated Problem 08/25/2025 Insurance [facility] MEDICARE ADVANTAGE CHOICE PLUS [facility] [address] MEDICARE ADVANTAGE Advance Directives For more information, please contact: [phone] * Full Code (Latest Code Status on File) Date Activated Date Inactivated Comments 2019 1:39 AM 03/06/2019 8:38 PM Care Teams Train Brakeman Relationship Specialty Start Date End Date Kentno Roy MD PCP - General Family Practice 03/22/19 Denton Plascencia MD [address] DEPT OPHTHALMOLOGY, [address] [address] Surgeon Ophthalmology 09/04/25
--- OUTSIDE RECORDS SUMMARY | 2025-09-28 08:30 | XMS_ITS | Clinical Summary ---
Author Organization [facility] Address [address] [facility] [facility] [address] [place] [address] Phone Care Team Providers Care Cat Sitter Name Role Phone Kenton Roy MD Primary [...] Most Recently Relevant to Health Maintenance Insurance [facility] Care Teams Cat Sitter Relationship Specialty Start Date End Date Kenton Roy MD PCP - General Family Medicine 02/11/21
--- OUTSIDE RECORDS SUMMARY | 2025-09-28 08:30 | XMS_ITS | Clinical Summary ---
Author Organization [employer] [facility] Address [address] Attn: Epic Prelude ADT [place] [id number] Care Team Providers Care Robot Programmer Name Role Phone Unavailable Primary Care Provider Unavailabl e Medications testosterone cypionate (DEPO-TESTOSTE DEENA) 200 mg/mL Oil Inject 1 mL (200 mg) by intramuscular injection every 30 days. 3 mL 1 02/18/20 22 Active testosterone cypionate (DEPO-TESTOSTE DEENA) 200 mg/mL Oil Inject 1 mL (200 mg) by intramuscular injection every 30 days. 3 mL 1 07/05/2022 10:18 AM CDT 03/31/20 22 Active methylPREDNISo lone (MEDROL DOSPACK) 4 mg Tablets, Dose Pack Take as directed on package. 21 Each 12/10/2022 8:12 AM ONLINE MARKETING MANAGER 12/09/19 23 Active meloxicam (MOBIC) 15 mg tablet Take 1 Tablet (15 mg) by mouth daily. 30 Tablet 12/19/2022 2:56 PM ONLINE MARKETING MANAGER 12/19/19 23 Active ALPRAZolam (XANAX) 0.5 mg tablet Take 1 tablet by mouth 1 hour prior to MRI procedure. DO NOT DRIVE FOR THE REMAINDER OF THAT DAY. 1 Tablet 01/23/2023 10:41 AM CDT 01/22/20 23 Active traMADoL (ULTRAM) 50 mg tablet Take 1 Tablet (50 mg) by mouth 3 times daily as needed for pain. 60 Tablet 02/02/2023 9:58 AM CDT 02/03/20 23 Active hydroCHLOROthi azide 25 mg tablet Take 1 Tablet (25 mg) by mouth daily. 90 Tablet 1 02/12/20 23 Active gabapentin (Neurontin) 300 mg capsule Take 1-2 cap(s) by mouth at bedtime as needed 60 Capsule 02/12/2023 5:03 PM CDT 02/13/20 23 Active methylPREDNISo lone (MEDROL DOSPACK) 4 mg Tablets, Dose Pack Take as directed on package. 21 Each 05/05/2023 9:53 AM CDT 05/04/20 23 Active cyclobenzaprin e (FLEXERIL) 10 mg tablet Take 1 Tablet (10 mg) by mouth 3 times daily as needed for muscle spasms. 30 Tablet 08/05/2023 4:18 PM CDT 08/05/20 23 Active HYDROcodone-ac etaminophen (NORCO) 5-325 mg tablet Take 1 Tablet by mouth every 4 hours as needed for mild pain (1-3) for 7 days. 42 Tablet 08/05/2023 4:18 PM CDT 08/05/20 23 Active sennosides-doc usate sodium (SENNA-S) 8.6-50 mg tablet Take 1 Tablet by mouth at bedtime as needed for constipation. 14 Tablet 08/05/2023 4:18 PM CDT 08/05/20 23 Active meloxicam (MOBIC) 7.5 mg tablet Take 1 Tablet (7.5 mg) by mouth daily. 30 Tablet 1 04/19/2024 12:08 PM CDT 04/18/20 24 Active metFORMIN (GLUCOPHAGE XR) 500 mg Extended Release 24 hour tablet Take 4 Tablets (2,000 mg) by mouth daily with the evening meal. 360 Tablet 1 03/15/2025 2:28 PM CDT 08/29/20 24 Active traMADoL (ULTRAM) 50 mg tablet Take 1 Tablet (50 mg) by mouth 2 times daily as needed for pain. 60 Tablet 10/19/2024 12:15 PM ONLINE MARKETING MANAGER 08/29/20 24 Active methocarbamoL (ROBAXIN) 500 mg tablet Take 1 tablet by mouth at bedtime 7 Tablet 12/23/2024 6:13 PM CDT 12/24/19 25 Active lidocaine (LIDODERM) 5 % Adhesive Patch, Medicated Apply 1 patch on most painful area once daily for up to 12 hours. Remove for 12 hours. 15 Patch 12/23/2024 6:13 PM CDT 12/24/19 25 Active oxyCODONE (ROXICODONE) 5 mg tablet Take 1 tablet by mouth every 8 hours As Needed for pain 10 Tablet 12/23/2024 6:13 PM CDT 12/23/19 25 Active methylPREDNISo lone (Medrol, Bert,) 4 mg Tablets, Dose Pack Take as directed on package 21 Tablet 12/27/2024 11:00 AM CDT 12/28/19 25 Active traMADol (ULTRAM) 50 mg tablet Take 1 Tablet (50 mg) by mouth 2 times daily as needed for pain. 60 Tablet 02/04/2025 10:58 AM CDT 02/04/20 25 Active gabapentin (NEURONTIN) 300 mg capsule Take 1 Capsule (300 mg) by mouth 3 times daily as needed for back pain. 270 Capsule 1 03/01/2025 12:19 PM CDT 02/28/20 25 Active simvastatin (ZOCOR) 10 mg tablet Take 1 Tablet (10 mg) by mouth daily at bedtime. 90 Tablet 2 09/12/2025 5:40 PM ONLINE MARKETING MANAGER 02/28/20 25 Active erythromycin (ILOTYCIN) 5 mg/gram (0.5 %) ointment Place on incisions three times per day and in operative eye as needed. 3.5 Gram 3 09/04/2025 3:06 PM ONLINE MARKETING MANAGER 09/04/20 25 Active fenofibrate (LOFIBRA) 160 mg Tablet TAKE 1 TABLET BY ORAL ROUTE EVERY DAY 90 Tablet 1 09/12/2025 5:40 PM ONLINE MARKETING MANAGER 09/11/20 25 Active glipiZIDE (GLUCOTROL XL) 10 mg Extended Release 24 hour tablet Take one tablet (10 mg) orally daily 90 Tablet 1 09/12/2025 5:40 PM ONLINE MARKETING MANAGER 09/11/20 25 Active hydroCHLOROthi azide 25 mg tablet Take one tablet (25 mg) orally daily 90 Tablet 1 09/12/2025 5:40 PM ONLINE MARKETING MANAGER 09/11/20 25 Active lisinopriL (PRINIVIL) 40 mg tablet Take one tablet (40 mg) orally daily 90 Tablet 1 09/12/2025 5:40 PM ONLINE MARKETING MANAGER 09/11/20 25 Active metFORMIN (GLUCOPHAGE XR) 500 mg Extended Release 24 hour tablet TAKE 4 TABLETS BY MOUTH EVERY DAY WITH EVENING MEAL 360 Tablet 1 09/12/2025 5:40 PM ONLINE MARKETING MANAGER 09/11/20 25 Active metFORMIN (GLUCOPHAGE XR) 500 mg Extended Release 24 hour tablet Take 4 Tablets (2,000 mg) by mouth every day with the evening meal. 360 Tablet 1 05/30/2025 2:57 PM CDT 08/25/20 24 025 Discontin ued(Reord er) fenofibrate (LOFIBRA) 160 mg Tablet Take 1 Tablet (160 mg) by mouth daily. 90 Tablet 1 05/30/2025 2:57 PM CDT 03/15/20 25 025 Discontin ued(Reord er) glipiZIDE (GLUCOTROL XL) 10 mg Extended Release 24 hour tablet Take 1 Tablet (10 mg) by mouth daily. 90 Tablet 1 05/30/2025 2:57 PM CDT 03/15/20 25 025 Discontin ued(Reord er) hydroCHLOROthi azide 25 mg tablet Take 1 Tablet (25 mg) by mouth daily. 90 Tablet 1 05/30/2025 2:57 PM CDT 03/15/20 25 025 Discontin ued(Reord er) lisinopriL (PRINIVIL) 40 mg tablet Take 1 Tablet (40 mg) by mouth daily. 90 Tablet 1 05/30/2025 2:57 PM CDT 03/15/20 025 Discontin ued(Reord er) Encounters Date Type Department Care Team Description [...] on file Payer ID:Not on file Group ID:[id number] Type:RX Medicare Part D Address: [place]
[2025-09-28 08:37] VITALS: BP 146/86; PULSE 86; RESP 16; TEMP 37.6; O2SAT 96
[2025-09-28] MEDS: ACETAMINOPHEN 500 MG TABLET 1000 MG PO (08:42)
[2025-09-28] MEDS: LACTATED RINGERS 1,000 ML 30 ML IV CONT (08:52)
--- NOTE | 2025-09-28 09:00 | WPDANESEPPF ---
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 Patient Data Age: 70 Gender: M Height: 1.85 m Weight: 98.2 kg Last Vital Signs Temp 99.6 F 09/28/25 08:37 Pulse 86 09/28/25 08:37 Resp 16 09/28/25 08:37 BP 146/86 H 09/28/25 08:37 Pulse Ox 96 09/28/25 08:37 O2 Del Method Room Air 09/28/25 08:37 Allergies Allergy/AdvReac Type Severity Reaction Status Date / Time No Known Allergies Allergy Verified 09/28/25 08:35 Home Medications ?Medication ?Instructions ?Recorded ?Confirmed ?Type lancets 30 gauge (OneTouch Delica #25 ea 11/16/19 02/27/25 History Lancets) acetaminophen [Tylenol] 650 mg PO PRN PRN Pain 11/29/20 09/28/25 History multivitamin 1 tablet PO DAILY 11/29/20 09/28/25 History naproxen sodium [Aleve] 220 mg PO PRN PRN Pain 11/29/20 09/28/25 History omega-3 fatty acids 1,000 mg 1,000 mg PO DAILY 11/29/20 09/28/25 History capsule (Fish Oil Concentrate) saw palmetto 1 tab-cap PO DAILY 11/29/20 09/28/25 History vitamin B complex (B 1 tablet PO DAILY 11/29/20 09/28/25 History Complex-Vitamin B12 tablet) blood sugar diagnostic #100 ea 04/30/21 02/27/25 Rx aspirin 81 mg tablet,delayed 81 mg PO DAILY 04/08/23 09/28/25 History release (Adult Aspirin Regimen) cholecalciferol (vitamin D3) 25 25 mcg PO DAILY 07/28/23 09/28/25 History mcg (1,000 unit) tablet simvastatin 10 mg tablet 10 mg PO QHS #90 tabs 02/27/25 09/28/25 Rx fenofibrate 160 mg tablet 160 mg PO DAILY #90 tabs 09/11/25 09/28/25 Rx glipizide 10 mg tablet, extended 10 mg PO DAILY #90 tabs 09/11/25 09/28/25 Rx release 24 hr hydrochlorothiazide 25 mg tablet 25 mg PO DAILY #90 tabs 09/11/25 09/28/25 Rx lisinopril 40 mg tablet 40 mg PO DAILY #90 tabs 09/11/25 09/28/25 Rx metformin 500 mg tablet,extended 2,000 mg (4 x 500 mg) PO QPM #360 09/11/25 09/28/25 Rx release 24 hr tabs Laboratory Tests 09/28/25 08:47 POC Capillary Glucose 173 H mg/dl (65-105) Patient hx anesthesia problems: none Family hx anesthesia problems: none Results Review: All pre-operative results and documents have been reviewed as part of the pre-operative evaluation. [facility] Past Medical History Medical History Osteoarthritis Cervical spine arthritis Hypertension History of blood clots Right rotator cuff tear Vitamin D deficiency Hypogonadism in male History of colon polyps Medial meniscus, posterior horn derangement Eczema ankle DVT (deep venous thrombosis) (~2013) 2014 - LLE Erectile dysfunction Essential (primary) hypertension Chronic pain of left ankle Dyslipidemia Type 2 diabetes mellitus without complication, without long-term current use of insulin Surgical History Surgical History S/P cubital tunnel release (~11/24/24) right History of cervical spinal surgery (~07/2023) C7 laminectomy and right C7-T1 foraminotomy, C6-T1 lateral mass instrumented fusion History of medial meniscus repair of right knee (~12/2020) 12/2020 History of foot surgery (~2013) Left x3 2014 Family History Family History Sibling Diabetes mellitus Mother Diabetes mellitus Hypertension Father Hypertension Other Arthritis High cholesterol Social History Social History Social History: Caffeine-coffee Smoking packs per day: 3 Smoking cigarettes per day: 60.0 Years smoked: 38 Smoking pack-years: 114.00 Smoking status: Former smoker Tobacco type: cigarettes Second hand tobacco smoke exposure: Yes Smoking end date: 10/12/03 Alcohol intake: current Alcohol use details: ONE DRINK PER MONTH Substance use: never Substance use type: does not use Lack of Transportation: No Lack of Food: Never True Current Housing: I Have Housing Concerned About Future Housing: No Difficulty Paying Gas/Electric Bills: No Difficulty Paying for Meds: No Currently Unemployed: No Education: Trade/Vocational Certificate Difficulty w/ Childcare or Family Care: No Living arrangements: with family Occupation/Education: occupation 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 Informed Consent: The patient's anesthetic plan and its attendant risks and benefits were discussed with the patient/family/POA. Questions were solicited and answers provided to the satisfaction of the patient/family/POA.
[2025-09-28] MEDS: BUPivacaine HCL 0.5% 10 ML AMP (09:52)
[2025-09-28 10:20] VITALS: BP 111/68; PULSE 77; RESP 15; O2SAT 92
[2025-09-28 10:33] VITALS: BP 98/69; PULSE 79; RESP 15; O2SAT 91
[2025-09-28 10:47] VITALS: BP 119/73; PULSE 71; RESP 16; O2SAT 93
[2025-09-28] MEDS: LIDO 1%/EPINEPHRINE 1:100,000 20 ML VIAL (11:40)
== END 2025-09-28 11:15 | disposition home or self-care (01) ==
LOC: ASC 08:20
PROVIDERS: PCP Family Medicine; Visit Provider Plastic Surgery
PROC: (CPT 64718; principal; 2025-09-28 09:45)
CPT/HCPCS: 64718; 29848